=== PATIENT | female | born 1975 | race Two or more races ===

== ENCOUNTER → 2020-02-20 08:04 | Outpatient (BNV) | payer MEDICARE, MEDICAID, SELFPAY | PROVIDERS: PCP Internal Medicine; Visit Provider Internal Medicine | DX: Z85.3 Personal history of malignant neoplasm of breast (principal); Z90.13 Acquired absence of bilateral breasts and nipples; Z85.09 Personal history of malignant neoplasm of other digestive organs; Z15.01 Genetic susceptibility to malignant neoplasm of breast | CPT/HCPCS: 99213; 99214 ==

== ENCOUNTER 2020-02-28 06:56 | Outpatient (REF) | payer MEDICARE, MEDICAID, SELFPAY ==
--- NOTE | 2020-02-28 07:00 | CT_ITS ---
EXAMINATION: CT CHEST, ABDOMEN AND PELVIS WITH CONTRAST CLINICAL INFORMATION: Cough, chest and abdominal pain. COMPARISON: None TECHNIQUE: A 5 mm thin axial and reformatted 3 mm thin sagittal and coronal images of chest, abdomen and pelvis were obtained following IV 85 mL Omnipaque 350. DLP: 400 mGy-cm FINDINGS: CHEST: The lungs are well expanded and clear of acute process. There is a 2 mm focal nodular thickening, right major fissure. Heart size and the great vessels are normal caliber. There is no pericardial effusion. The central trachea and bronchi are widely patent. The thyroid lobes are symmetrical and normal. No abnormal size mediastinal or hilar lymph nodes seen. There is no pleural effusion, thickening, or calcification. The axilla and chest wall appear unremarkable. ABDOMEN AND PELVIS: The liver is normal size, shape and diffusely attenuated. No focal lesions seen. There is no intrahepatic ductal dilatation. There is no focal lesion or intrahepatic ductal dilatation. There are no radiopaque gallstones seen. There is, however, mild focal wall thickening, medial wall, measuring 7 mm, suspicious for a lesion. Visualized spleen, pancreas and bilateral adrenal glands are unremarkable. A small accessory splenule is seen. Both kidneys are normal size, shape and position. No radiopaque renal calculi or hydronephrosis. Abdominal aorta is normal caliber. No retroperitoneal lymph nodes nodes or mass seen. There is scattered stool and contrast seen throughout the colon without any significant distention. The small bowel loops are normal caliber. The stomach is nondistended and appears unremarkable. The appendix is normal caliber. There is no free air or free fluid. There is mild nonspecific thickening involving the lower anterior abdominal wall likely granulation tissue. Imaging through the pelvis reveals the urinary bladder to be nondistended with nonspecific mild wall thickening. The bladder wall measures 4 mm thick. Incidental finding of ureteral and gissel-ureteral gas collection, ? iatrogenic or inflammatory. Correlate with clinical exam. There is no free fluid seen. There is mild ventral spondylosis L3-L4 disc level. No lytic or sclerotic process seen. IMPRESSION: 1. Punctate nodule, right major fissure, likely a lymph node. Otherwise CT chest exam is unremarkable. 2. Mild gallbladder wall thickening. Focal wall thickening is seen measuring 7 mm along the medial wall, suspicious. Recommend ultrasound gallbladder for further evaluation. 3. No acute process seen in the abdomen or pelvis. 4. Mild constipation without obstruction.
[2020-02-28] MEDS: Barium Sulfate Oral (Vanilla) 450 ML ORAL.SUSP 900 ML PO (09:39)
== END 2020-02-28 06:57 | disposition home or self-care (01) ==
LOC: HO.CT 06:56
PROVIDERS: PCP Internal Medicine; Visit Provider Internal Medicine
DX: R05 Cough (principal); R07.9 Chest pain, unspecified; R10.9 Unspecified abdominal pain; C50.919 Malignant neoplasm of unspecified site of unspecified female breast; Z15.01 Genetic susceptibility to malignant neoplasm of breast
CPT/HCPCS: 71260; 74177

== ENCOUNTER 2020-03-08 08:26 | Outpatient (REF) | payer MEDICARE, MEDICAID, SELFPAY ==
--- NOTE | 2020-03-08 08:31 | US_ITS ---
EXAMINATION: US ABDOMEN LIMITED CLINICAL INFORMATION: Abnormal CT findings. COMPARISON: CT chest, abdomen and pelvis 02/28/2020 TECHNIQUE: Real-time imaging of the right upper quadrant abdominal viscera. FINDINGS: PANCREAS: Normal. LIVER: The liver is normal in size. The liver contour is normal. There is slight increased liver echogenicity. No focal hepatic lesion. There is no intrahepatic biliary duct dilatation seen. GALLBLADDER: There is a hypoechoic lesion along the inner gallbladder wall measuring 1.8 x 1.6 x 1.9 cm suspicious for a large polyp or a mass with increased vascularity. The gallbladder wall thickness is 0.22 cm. The gallbladder is physiologically distended. Multiple mobile gallstones are present. No tenderness in the gallbladder region by ultrasound probe. No evidence of pericholecystic fluid. COMMON BILE DUCT: Normal in caliber measuring 0.5 cm in diameter. RIGHT KIDNEY: Normal. No hydronephrosis. No renal calculi or focal parenchymal lesions. The kidney measures 9.2 cm in maximum dimension. FREE FLUID: None. US/US abdomen limited IMPRESSION: Hypervascular large polyp or a mass along the inner gallbladder wall suspected. The findings are concordant with CT report, and the measurement was 1.47 cm and not [address] abdomen from 02/28/2020. Multiple echogenic gallstones without wall thickening.
== END 2020-03-08 08:27 | disposition home or self-care (01) ==
LOC: HO.HMGCX 08:26
PROVIDERS: PCP Internal Medicine; Visit Provider Internal Medicine
DX: R93.2 Abnormal findings on diagnostic imaging of liver and biliary tract (principal)
CPT/HCPCS: 76705

== ENCOUNTER 2020-04-18 08:24 | Outpatient (REF) | payer MEDICARE, MEDICAID, SELFPAY ==
[2020-04-26 15:23] LABS: HPV 16 RNA NOT DETECTED (NOT DETECTED); HPV mRNA E6/E7 rflx Detected (Not Detected)
== END 2020-04-18 08:25 | disposition home or self-care (01) ==
LOC: HO.LAB 08:24
PROVIDERS: PCP Internal Medicine; Visit Provider Advanced Practice Midwife
DX: Z01.419 Encounter for gynecological examination (general) (routine) without abnormal findings (principal); Z15.01 Genetic susceptibility to malignant neoplasm of breast; Z15.09 Genetic susceptibility to other malignant neoplasm
CPT/HCPCS: 87624; 87625; 88141; 88142

== ENCOUNTER 2020-11-05 05:56 | Outpatient (REF) | payer MEDICARE, MEDICAID, SELFPAY ==
--- NOTE | ~2020-11-05 | CT_ITS ---
EXAMINATION: CT ABDOMEN AND PELVIS WITH CONTRAST CLINICAL INFORMATION: Gallbladder cancer COMPARISON: Previous CT of the abdomen and pelvis and ultrasound of the abdomen over 2019 TECHNIQUE: Multidetector volumetric images were obtained from the superior aspect of the liver through the pubic symphysis following administration 85 mL of Omnipaque 350 intravenous contrast. Sagittal and coronal reformatted images were obtained on the technologist's workstation. Oral contrast: Yes This CT examination was performed using dose optimization techniques as appropriate, variously including the following: *Automated exposure control *Adjustment of mA and/or kV according to patient size (this includes techniques or standardized protocols for targeted exams where dose is matched to indication/reason for exam; i.e. extremities or head) *Use of iterative reconstruction technique DLP: 379 mGy-cm FINDINGS: LUNG BASES: The visualized lung bases are unremarkable. LIVER, GALLBLADDER, AND BILIARY TREE: The liver is low in attenuation suggestive of fatty infiltration. No focal liver lesion or biliary duct dilatation. The gallbladder has been removed. No abnormal soft tissue in the gallbladder fossa is seen. PANCREAS: There is amorphous appearing heterogeneous soft tissue inferior to the uncinate process of the head of the pancreas. Measured as 2.1 x 4.5 cm in AP and transverse dimension axial image 31 series 3. High attenuation component is similar to the attenuation of the pancreas and measures approximately 15. The more peripheral low-attenuation component measuring has Hounsfield units measure 20. This is similar to preoperative exam February 2020. Pancreas is otherwise unremarkable. SPLEEN: Unremarkable. ADRENAL GLANDS: Unremarkable. KIDNEYS AND URETERS: The kidneys are normal in size, shape, and attenuation. No hydronephrosis, hydroureter, or calculi seen. No perinephric stranding. BLADDER: There may be mild diffuse bladder wall thickening. GASTROINTESTINAL TRACT: The small and large bowel are unremarkable. The appendix is unremarkable. ABDOMINAL WALL: No significant hernia is appreciated. There are postsurgical changes to the anterior abdominal wall. LYMPH NODES: There are small, small bowel mesentery lymph nodes that are unchanged. No enlarged lymph nodes are seen. There is no ascites. VASCULAR: Unremarkable. PELVIC VISCERA: Unremarkable. OSSEOUS STRUCTURES: There are mild degenerative changes of the spine. CT/CT abdomen pelvis w con IMPRESSION: Heterogeneous soft tissue inferior to the uncinate process of the head of the pancreas. This is similar to preoperative exam February 2020. This may represent the sequela of previous pancreatitis. Question mild diffuse bladder wall thickening. Fatty liver.
[2020-11-05] MEDS: iohexoL 350 MG/ML 100 ML INFUS..BTL IV (08:58)
[2020-11-05] MEDS: Barium Sulfate Oral (Vanilla) 450 ML ORAL.SUSP 900 ML PO (08:59)
== END 2020-11-05 05:57 | disposition home or self-care (01) ==
LOC: HO.CT 05:56
PROVIDERS: PCP Internal Medicine; Visit Provider Internal Medicine
DX: C22.1 Intrahepatic bile duct carcinoma (principal)
CPT/HCPCS: 74177; Q9967

== ENCOUNTER 2020-12-02 08:01 | Outpatient (REF) | payer MEDICARE, MEDICAID, SELFPAY ==
--- NOTE | ~2020-12-02 | MR_ITS ---
MRI OF THE BRAIN WITH AND WITHOUT IV CONTRAST INDICATION: Dizziness. COMPARISON: None available. TECHNIQUE: Multiplanar multisequence MR imaging of the brain was obtained without and following the administration of 8.5 mL of Gadavist without complication. FINDINGS: There is no pathologic intracranial enhancement. Developmental venous anomalies within the frontal lobes bilaterally. Cavum septum pellucidum at vergae No parenchymal signal abnormality. There is no hydrocephalus, extra-axial surface collection, or herniation. The major flow voids at the skull base are preserved. There is no acute infarct on diffusion-weighted imaging. There is no intracranial hemorrhage on the gradient recalled echo acquisition. The midline structures are normal. The cerebellar tonsils are normally positioned. The cerebellum and brainstem are normal. The craniocervical junction is normal. Osseous marrow signal intensity is homogenous. The visualized soft tissues are unremarkable. MR/MR head/brain wo/w con IMPRESSION: Unremarkable MRI of the brain.
== END 2020-12-02 08:02 | disposition home or self-care (01) ==
LOC: HO.MRI 08:01
PROVIDERS: Visit Provider Internal Medicine
DX: R42 Dizziness and giddiness (principal); C50.911 Malignant neoplasm of unspecified site of right female breast
CPT/HCPCS: 70553; A9585

== ENCOUNTER 2021-01-06 14:00 | Outpatient (RCR) | payer MEDICARE, MEDICAID, SELFPAY ==
--- NOTE | 2020-12-12 09:57 | MHC.PT.EP ---
[facility] Media Office [place] Office [place] Office [address] [phone] F: [phone] F: [phone] F: [phone] F: [phone] Physical Therapy Plan of Care Date of Evaluation: Date of Surgery: none Diagnosis: R frozen shoulder. Assessment: Patient is a 45 year old R handed female who presents with s/s consistent with R frozen shoudler. She is not currently working and not exercising regularly. Past medical history included breast cancer with mastectomy. Current impairments include pain, posture, ROM, strength, activity tolerance and functional mobility. Functional limitations include decreased ability to sleep, reach, lift, carry, push, pull, and perform weight bearing activities.. Patient is motivated with good rehab potential. Skilled PT will address impairments and functional limitations in order to achieve goals. Frequency and Duration: The patient will be seen 2x/week for 5 weeks Short Term Goals: I with HEP - 2 week ROM flexion and abduction 120 - 3 weeks strength 4/5 grossly - 3 weeks Director Risk Goals: ROM flexion and abd 140 - 5 weeks ER/Ir arc 120 - 5 weeks pain free sleep - 5 weeks Treatment Plan: Modalities to reduce pain, spasms and effusion. Manual therapy to restore motion and function. Therapeutic exercise to improve strength and flexibility. Neuromuscular re-education for posture and balance. Therapeutic activities to return to functional activities of daily living. Electronically signed by: Nikolas Mahoney PT Please sign and return to therapist. Thank you for your referral.
--- NOTE | 2021-04-15 14:27 | MHC.PT.DC ---
[facility] [place] Office [place] Office [place] Office [address] Orlin Huerta [address] [phone] F: [phone] F: [phone] F: [phone] F: [phone] Physical Therapy Discharge Report Diagnosis: R frozen shoulder. Date of Surgery: none Date of Evaluation: 12/12/20 Date of Discharge: 02/14/21 Treatments to Date: 7 Cancellations to Date: 0 No Shows to Date: 0 Discharge Status: Independent with HEP Discharge Summary: Progressing well with skilled PT. ROM improving. strength improving. At this time, we will d/c to HEP. Electronically signed by: Nikolas Mahoney PT Please sign and return to therapist. Thank you for your referral.
== END 2021-04-15 14:27 | disposition home or self-care (01) ==
LOC: HO.PTCHIC 14:00
PROVIDERS: PCP Internal Medicine; Visit Provider Internal Medicine
DX: M75.01 Adhesive capsulitis of right shoulder (principal)
CPT/HCPCS: 97110; 97140; 97162

== ENCOUNTER 2021-04-07 07:46 | Outpatient (REF) | payer MEDICARE, MEDICAID, SELFPAY ==
--- NOTE | ~2021-04-07 | CT_ITS ---
EXAMINATION: CT ABDOMEN AND PELVIS WITHOUT AND WITH CONTRAST CLINICAL INFORMATION: Follow-up pancreatic mass COMPARISON: Previous CT scans of the abdomen and pelvis most recent October 2020 Back to oldest available exam April 2017 TECHNIQUE: Multidetector volumetric imaging was performed of the abdomen and pelvis before and after the IV administration of 85 mL of Omnipaque 350 intravenous contrast. Sagittal and coronal reformatted images were obtained on the technologist's workstation. This CT examination was performed using dose optimization techniques as appropriate, variously including the following: *Automated exposure control *Adjustment of mA and/or kV according to patient size (this includes techniques or standardized protocols for targeted exams where dose is matched to indication/reason for exam; i.e. extremities or head) *Use of iterative reconstruction technique DLP: 596 mGy-cm FINDINGS: LUNG BASES: The visualized lung bases are unremarkable. LIVER, GALLBLADDER, AND BILIARY TREE: The liver is normal in size, shape, and attenuation. No focal hepatic lesion or biliary ductal dilatation is present. The gallbladder has been removed. PANCREAS: There is a stable low-attenuation soft tissue inferior to the uncinate process of the head of the pancreas. This can be seen going back to oldest available exam April 2017. This measures 1 x 4 cm in AP and transverse dimension for example axial image 96 series 7 Hounsfield units postcontrast are low and measure 15-20 suggestive of complex fluid or cyst. The pancreas is otherwise unremarkable. A discrete mass in the pancreas is not seen. The main pancreatic duct does not appear dilated. SPLEEN: Unremarkable ADRENAL GLANDS: Unremarkable KIDNEYS AND URETERS: The kidneys are normal in size, shape, and attenuation. No hydronephrosis, hydroureter, or calculi seen. No perinephric stranding. BLADDER: Not optimally distended. There may be mild diffuse bladder wall thickening. GASTROINTESTINAL TRACT: The small and large bowel are unremarkable. The appendix is unremarkable. ABDOMINAL WALL: There are postsurgical changes to the anterior abdominal wall. No hernia or fluid collection is seen. LYMPH NODES: There is shotty small bowel mesentery lymphadenopathy that is stable. No enlarged lymph nodes are seen. VASCULAR: Unremarkable PELVIC VISCERA: Unremarkable OSSEOUS STRUCTURES: There are degenerative changes of the spine. CT/CT abdomen pelvis wo/w con IMPRESSION: Stable low-attenuation amorphous appearing soft tissue inferior to the uncinate process of the pancreas going back to oldest available exam April 2017. Stable shotty small bowel mesentery lymphadenopathy. Question mild diffuse bladder wall thickening. Fleischner guidelines were followed.
[2021-04-07] MEDS: iohexoL 350 MG/ML 100 ML INFUS..BTL IV (09:38)
== END 2021-04-07 07:47 | disposition home or self-care (01) ==
LOC: HO.CT 07:46
PROVIDERS: Visit Provider Internal Medicine
DX: K86.9 Disease of pancreas, unspecified (principal)
CPT/HCPCS: 74178; Q9967

== ENCOUNTER 2021-06-05 08:59 | Outpatient (REF) | payer MEDICARE, MEDICAID, SELFPAY ==
[2021-06-06 13:08] LABS: CT PCR NOT DETECTED (Not Detect.); NG PCR NOT DETECTED (Not Detect.)
[2021-06-07 10:58] LABS: BV Int Neg Control Negative (Negative); BV Int Pos Control Positive (Positive)
[2021-06-14 02:26] LABS: HPV 16 RNA NOT DETECTED (NOT DETECTED); HPV mRNA E6/E7 rflx Detected (Not Detected)
== END 2021-06-05 09:00 | disposition home or self-care (01) ==
LOC: HO.LAB 08:59
PROVIDERS: PCP Internal Medicine; Visit Provider Advanced Practice Midwife
DX: Z01.419 Encounter for gynecological examination (general) (routine) without abnormal findings (principal); Z11.51 Encounter for screening for human papillomavirus (HPV); Z20.2 Contact with and (suspected) exposure to infections with a predominantly sexual mode of transmission; Z90.710 Acquired absence of both cervix and uterus; Z87.42 Personal history of other diseases of the female genital tract
CPT/HCPCS: 87480; 87491; 87510; 87591; 87624; 87625; 87660; 88142

== ENCOUNTER → 2021-06-19 08:47 | Outpatient (BNVA) | payer MEDICARE, MEDICAID, SELFPAY | PROVIDERS: PCP Internal Medicine; Referring Provider Internal Medicine; Visit Provider Nurse Practitioner | DX: Z12.11 Encounter for screening for malignant neoplasm of colon (principal); K59.04 Chronic idiopathic constipation; R14.0 Abdominal distension (gaseous); R17 Unspecified jaundice | CPT/HCPCS: 99202 ==

== ENCOUNTER 2021-07-02 07:49 | Outpatient (REF) | payer MEDICARE, MEDICAID, SELFPAY ==
[2021-07-02 09:08] LABS: Bilirubin Direct 0.7 mg/dL (0.0-0.5)
== END 2021-07-02 07:50 | disposition home or self-care (01) ==
LOC: HO.LAB 07:49
PROVIDERS: PCP Internal Medicine; Visit Provider Nurse Practitioner
DX: K59.04 Chronic idiopathic constipation (principal); R14.0 Abdominal distension (gaseous); R17 Unspecified jaundice
CPT/HCPCS: 36415; 82248; 84443

== ENCOUNTER 2021-07-08 20:30 | Outpatient (REF) | payer MEDICARE, MEDICAID, SELFPAY ==
[2021-07-14 22:21] LABS: Pancreatic Elastase-1 >500 mcg/g
== END 2021-07-08 20:31 | disposition home or self-care (01) ==
LOC: HO.LNP 20:30
PROVIDERS: Visit Provider Nurse Practitioner
DX: K59.04 Chronic idiopathic constipation (principal); R14.0 Abdominal distension (gaseous)
CPT/HCPCS: 82656

== ENCOUNTER 2021-07-10 07:07 | Outpatient (REF) | payer MEDICARE, MEDICAID, SELFPAY ==
[2021-07-10 09:37] LABS: Gamma Glutamyl Transpeptidase 35 U/L (7-33)
[2021-07-10 09:57] LABS: HBsAGNum1 0.26 S/CO (0.00-0.99); Hepatitis B Surface Antigen Negative (Negative)
[2021-07-10 10:03] LABS: Ferritin 57 ng/mL (10-250)
[2021-07-10 10:08] LABS: HBc Num1 0.12 S/CO (0.00-0.79); Hepatitis B Core Antibody Nonreactive (Nonreactive); ~HepC Num1 0.09 S/CO (0.00-0.79); ~Hepatitis B Surface Antibody NONREACTIVE (Nonreactive); ~Hepatitis C Antibody Nonreactive (Nonreactive)
[2021-07-11 07:45] LABS: ~Hepatitis A Antibody IgM Nonreactive (Nonreactive)
[2021-07-11 15:07] LABS: Anti Nuclear Antibody Screen NEGATIVE (NEGATIVE)
[2021-07-12 14:56] LABS: Mitochondrial Antibodies NEGATIVE (NEGATIVE)
[2021-07-15 14:05] LABS: Smooth Muscle Antibody <20 U (<20)
== END 2021-07-10 07:08 | disposition home or self-care (01) ==
LOC: HO.LAB 07:07
PROVIDERS: PCP Internal Medicine; Referring Provider Internal Medicine; Visit Provider Nurse Practitioner
DX: K59.04 Chronic idiopathic constipation (principal); R17 Unspecified jaundice; R14.0 Abdominal distension (gaseous); R79.89 Other specified abnormal findings of blood chemistry
CPT/HCPCS: 36415; 82728; 82977; 86015; 86038; 86039; 86255; 86256; 86704; 86706; 86709; 86803; 87340; 99212

== ENCOUNTER → 2021-07-31 07:10 | Outpatient (BNVA) | payer MEDICARE, MEDICAID, SELFPAY | PROVIDERS: PCP Internal Medicine; Referring Provider Internal Medicine; Visit Provider Nurse Practitioner | DX: Z12.11 Encounter for screening for malignant neoplasm of colon (principal); K59.04 Chronic idiopathic constipation; R14.0 Abdominal distension (gaseous); R17 Unspecified jaundice; R79.89 Other specified abnormal findings of blood chemistry | CPT/HCPCS: 99212 ==

== ENCOUNTER 2021-09-17 07:25 | Day surgery (SDC) | payer MEDICARE, MEDICAID, SELFPAY ==
[2021-09-10 20:18] VITALS: BMI 28.5
--- NOTE | 2021-09-16 12:56 | P.CONAN_ITS ---
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 (Acute) Hx of hysterectomy (Acute) Hx of abnormal cervical Pap smear (Acute) BRCA1 positive (Acute) Well woman exam with routine gynecological exam (Acute) Gallbladder cancer, carcinoma (Acute) Breast cancer, right breast (Chronic) Past Medical History Medical History Adhesive capsulitis of left shoulder Adhesive capsulitis of right shoulder Anxiety disorder Breast cancer, BRCA1 positive Gallbladder cancer, carcinoma [place] disease Vitamin D deficiency Family History Family History Father Prostate cancer Paternal Aunt Breast cancer Maternal Grandmother Alzheimer's dementia Mother Endometrial cancer Surgical History Surgical History H/O bilateral mastectomy History of cholecystectomy History of colonoscopy History of hysterectomy with bilateral oophorectomy Social History Social History Household Members: None Housing: Apartment Are you a primary managed care director to a significant other at home: No Do you presently have visiting nurse or other home services: No Alcohol intake: never Patient Tobacco Use Status: Never used Tobacco service: No Current occupational status: unemployed Gender identity: Female Meds Allergies Allergy/AdvReac Type Severity Reaction Status Date / Time diphenhydramine Allergy Intermediate RASH Verified 09/10/21 08:45 [From BENADRYL] Penicillins [PENICILLINS] Allergy Intermediate RASH Verified 09/10/21 08:45 LAUGHING GAS Allergy Intermediate RASH/HIVES/ Uncoded 09/10/21 08:45 SWELLING Exam Exam Date and Time: September 16, 2021 1256 Height,Weight and Vital Signs: Height 5 ft 7 in Weight 82.554 kg Pertinent Lab Results Pertinent Lab Results: Laboratory Tests 09/10/21 09/10/21 08:12 08:12 WBC 4.9 Hgb 12.6 Hct 41.6 Plt Count 366 Sodium 139 Potassium 4.5 Chloride 101 Carbon Dioxide 29 BUN 10 Creatinine 0.93 Assessment and Plan Assessment Anesthesia Assessment: Chart Reviewed
--- NOTE | 2021-09-17 07:15 | P.CONAN_ITS ---
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) Hx of hysterectomy (Acute) Hx of abnormal cervical Pap smear (Acute) BRCA1 positive (Acute) Well woman exam with routine gynecological exam (Acute) Gallbladder cancer, carcinoma (Acute) Breast cancer, right breast (Chronic) Past Medical History Medical History Adhesive capsulitis of left shoulder Adhesive capsulitis of right shoulder Anxiety disorder Breast cancer, BRCA1 positive Gallbladder cancer, carcinoma [place] disease Vitamin D deficiency Functional capacity: independent ambulation Patient : No Family History Family History Father Prostate cancer Paternal Aunt Breast cancer Maternal Grandmother Alzheimer's dementia Mother Endometrial cancer Family history of problems with anesthesia: No Surgical History Surgical History H/O bilateral mastectomy History of cholecystectomy History of colonoscopy History of hysterectomy with bilateral oophorectomy History of Problems with Anesthesia: No Social History Social History Household Members: None Housing: Apartment Are you a primary early breastfeeding care specialist to a significant other at home: No Do you presently have visiting nurse or other home services: No Alcohol intake: never Patient Tobacco Use Status: Never used Tobacco Use of substances other than those prescribed or required for medical reasons: No Are you DNR?: No Advance Directives: No Advance Directives Information Provided: Yes Recently lost weight without trying: No Nutrition Risks: No Nutritional Risk Patient : No service: No Current occupational status: unemployed Gender identity: Female Meds Allergies Allergy/AdvReac Type Severity Reaction Status Date / Time diphenhydramine Allergy Intermediate RASH Verified 09/10/21 08:45 [From BENADRYL] Penicillins [PENICILLINS] Allergy Intermediate RASH Verified 09/10/21 08:45 LAUGHING GAS Allergy Intermediate RASH/HIVES/ Uncoded 09/10/21 08:45 SWELLING Exam Exam Date and Time: September 17, 2021 0715 Height,Weight and Vital Signs: Height 5 ft 7 in Weight 82.554 kg Airway Mallampati Class: III TM Dist: >3cm Neck ROM: Full Heart: RRr Lungs: CTA Assessment and Plan Final Anesthetic Review Family History of Problems with Anesthesia: No History of Problems with Anesthesia: No ASA Class: III Final Preanesthetic Review: No Changes in Pt Med Stat, Meds/Allgs Chart Reviewed, Consent Obtained/Reviewed and Anes Risks/Benef Reviewed Patient Risk: Low Procedure Risk: Low Anesthetic Plan Anesthetic Plan: MAC: Disposition: Standard PACU
[2021-09-17 07:38] VITALS: BMI 28.1
[2021-09-17 07:53] VITALS: BP 118/76; PULSE 63; RESP 17; TEMP 36.7; O2SAT 98
[2021-09-17] MEDS: Lactated Ringers 1,000 ML 100 ML IVCONT (08:05)
--- NOTE | 2021-09-17 08:33 | MHC.SHP ---
Pre-Procedural Eval Section A Date of Service: 09/17/21 Section B Chief Complaint: colon screening Details of Present Illness: BRCA gene pos Relevant Family History (Specify if Yes): Yes Relevant Social History: None Present Medications: see Short Stay Collaborative assessment Medical History: Significant History (Adhesive capsulitis of left shoulder Adhesive capsulitis of right shoulder Anxiety disorder Breast cancer, BRCA1 positive Gallbladder cancer, carcinoma [place] disease Vitamin D deficiency) History of Previous Operations: Relevant previous surgery/procedure and date(s) (H/O bilateral mastectomy History of cholecystectomy History of colonoscopy History of hysterectomy with bilateral oophorectomy) Allergies: Allergies Allergy/AdvReac Type Severity Reaction Status Date / Time diphenhydramine Allergy Intermediate RASH Verified 09/10/21 08:45 [From BENADRYL] Penicillins [PENICILLINS] Allergy Intermediate RASH Verified 09/10/21 08:45 LAUGHING GAS Allergy Intermediate RASH/HIVES/ Uncoded 09/10/21 08:45 SWELLING Review of Systems Sugical H&P ROS: Negative: Constitution, Cardiovascular, Respiratory, Neurological, Psychiatric, Hem-Onc, Allergic/Immunologic, Gastrointestinal, Genitourinary, Musculoskeletal, Integumentary, Endocrine and Eyes/Ears/Nose/Throat Exam Surgical H&P Exam: Normal: HEENT, Normal: Heart, Normal: Lungs, Normal: Extremities, Normal: Abdomen, Normal: Skin and Normal: Neurological Plan Diagnosis/Plan: Unchanged I have reviewed the history and physical and performed a pertinent physical examination on my patient. No changes have occurred unless specified.
--- NOTE | 2021-09-17 08:35 | PM.OP ---
Brief Operative Note Date of Service: 09/17/21 Pre-op diagnosis: colon screening Post-op diagnosis: same Procedure: see op note Surgeon: Cari Hoyt MD Anesthesia: MAC Was an Refractory Tile Helper used for this Procedure?: No Estimated blood loss (mL): 0 Condition: stable Disposition: PACU
--- NOTE | 2021-09-17 08:35 | W.PM.OPN ---
Operative Note Operative Note Date of Service: 09/17/21 Narrative: Operative Information Procedure Description: Colonoscopy Indication: colon cancer screening Anesthesia: MAC COLONOSCOPY Instrument: Olympus variable stiffness pediatric scope 190L Colonoscopy Monitoring: Vital signs and clinical assessment, continuous EKG monitoring, Pulse oximetry, Carbon Dioxide monitoring and blood pressure monitoring were done throughout the procedure. Colon withdrawal time was 9 minutes. Procedure: The patient was placed in the left lateral decubitis position and pre-procedure medications were administered. After a digital rectal examination of the ano-rectum, the video colonoscope was inserted into the rectum and advanced through the colon to the cecum/TI. The colonoscope was slowly withdrawn in a retrograde panoramic fashion and the colon mucosa was carefully examined including a retroflexed view of the rectum. Findings and interventions are described below. Procedure Difficulty: easy Findings: Terminal Ileum-normal Cecum: few small erosions noted Ascending Colon: one small diverticulum noted in distal area otherwise normal Transverse Colon -normal Descending Colon:normal Sigmoid Colon: 10-12 mm sessile polyp removed with cold snare Rectum: Retroflexion with small internal hemorrhoids, grade I Anorectum - normal Colon preparation: [facility] Bowel Preparation Scale Right colon; 2 Transverse colon: 3 Left colon; 3 (0 = Unprepared colon segment with mucosa not seen due to solid stool that cannot be cleared. 1 = Portion of mucosa of the colon segment seen, but other areas of the colon segment not well seen due to staining, residual stool and/or opaque liquid. 2 = Minor amount of residual staining, small fragments of stool and/or opaque liquid, but mucosa of colon segment seen well. 3 = Entire mucosa of colon segment seen well with no residual staining, small fragments of stool or opaque liquid) Impression and Post Procedure Diagnosis: polyp internal hemorrhoids diverticular disease Plan: High fiber diet leaflet Avoid straining at stool, epsom salts and sitz bath, anusol supps or cream Repeat Colonoscopy in 5 years or earlier if clinically indicated, patient also has BRCA gene pos, which does have a moderately higher risk for CRC so 5 yrs is reasonable Above findings were reviewed with the patient and relevant handouts were provided if indicated.
[2021-09-17 09:03] VITALS: BP 93/47; PULSE 66; RESP 16; TEMP 36.6; O2SAT 98
[2021-09-17 09:18] VITALS: BP 115/77; PULSE 60; RESP 16; TEMP 36.6; O2SAT 98
--- NOTE | 2021-09-17 12:05 | HO.POSTANES ---
Post Anesthesia Evaluation Post Anesthesia Evaluation Vital Signs: Vital Signs Temp Pulse Resp BP Pulse Ox 09/17/21 09:18 97.8 F 60 16 115/77 98 09/17/21 09:03 97.8 F 66 16 93/47 L 98 09/17/21 07:53 98.0 F 63 17 118/76 98 Anesthesia: Monitored Mental Status: Awake Pain Control: Satisfactory Nausea/Vomiting: None Hydration: Adequate Anesthesia-Related Issues: No Anes. Related Issues
== END 2021-09-17 09:48 | disposition home or self-care (01) ==
PROVIDERS: PCP Internal Medicine; Visit Provider Internal Medicine Gastroenterology
PROC: 0DJD8ZZ Inspection of Lower Intestinal Tract, Via Natural or Artificial Opening Endoscopic (ICD-10-PCS; CPT 45378; principal; 2021-09-17 08:30)
DX: Z12.11 Encounter for screening for malignant neoplasm of colon (principal); K59.04 Chronic idiopathic constipation; K63.5 Polyp of colon; K57.30 Diverticulosis of large intestine without perforation or abscess without bleeding; K64.0 First degree hemorrhoids; E80.4 Gilbert syndrome; E55.9 Vitamin D deficiency, unspecified; Z85.3 Personal history of malignant neoplasm of breast; Z85.09 Personal history of malignant neoplasm of other digestive organs; Z88.0 Allergy status to penicillin; Z88.8 Allergy status to other drugs, medicaments and biological substances
CPT/HCPCS: 45385; 88305

== ENCOUNTER 2021-09-22 05:36 | Outpatient (REF) | payer MEDICARE, MEDICAID, SELFPAY ==
--- NOTE | ~2021-09-22 | CT_ITS ---
EXAMINATION: CT ABDOMEN AND PELVIS WITHOUT CONTRAST CLINICAL INFORMATION: Recurrent pancreatic cancer. For screening. COMPARISON: None TECHNIQUE: Multidetector volumetric imaging was performed from the superior aspect of the liver through the pubic symphysis. Sagittal and coronal reformatted images were obtained on the technologist's workstation. This CT examination was performed using dose optimization techniques as appropriate, variously including the following: *Automated exposure control *Adjustment of mA and/or kV according to patient size (this includes techniques or standardized protocols for targeted exams where dose is matched to indication/reason for exam; i.e. extremities or head) *Use of iterative reconstruction technique DLP: 539 mGy-cm FINDINGS: LUNG BASES: The visualized lung bases are unremarkable. LIVER, GALLBLADDER, AND BILIARY TREE: The liver is normal in size, shape, and attenuation. No focal hepatic lesion or biliary ductal dilatation is present. The gallbladder has been surgical removed. PANCREAS: The pancreas is homogeneous in density. The peripancreatic fat borders are maintained. No heterogeneity seen. SPLEEN: Unremarkable. ADRENAL GLANDS: Unremarkable. KIDNEYS AND URETERS: The kidneys are normal in size, shape, and attenuation. No hydronephrosis, hydroureter, or calculi seen. No perinephric stranding. BLADDER: The bladder is nondistended. GASTROINTESTINAL TRACT: There is moderate scattered stool seen throughout the colon without distention. Oral contrast opacified small bowel loops are normal caliber. Appendix is normal caliber. ABDOMINAL WALL: There is mild anterior abdominal wall haziness likely cellulitis. Mild skin wall thickening is also visualized. LYMPH NODES: Small shotty mesenteric lymph nodes seen. No abnormal lymph node seen around the pancreas or the awa hepatis. VASCULAR: Unremarkable. PELVIC VISCERA: The uterus is anteverted and appears unremarkable. There is moderate impacted stool in the rectum and the sigmoid colon. OSSEOUS STRUCTURES: No aggressive lytic or sclerotic process seen. There is mild ventral spondylosis L3-L4 disc levels. CT/CT abdomen pelvis wo con IMPRESSION: On noncontrast exam the pancreas appears unremarkable. The peripancreatic fat borders are preserved. No abnormal lymph node seen in the upper abdomen. Gallbladder has been surgically removed. Moderate constipation. Haziness throughout the anterior abdominal wall with mild skin thickening question cellulitis or postsurgical changes. Fleischner guidelines were followed.
[2021-09-22] MEDS: Barium Sulfate Oral (Mocha) 450 ML ORAL.SUSP 900 ML PO (08:58)
== END 2021-09-22 05:37 | disposition home or self-care (01) ==
LOC: HO.CT 05:36
PROVIDERS: Visit Provider Internal Medicine
DX: C23 Malignant neoplasm of gallbladder (principal); C50.919 Malignant neoplasm of unspecified site of unspecified female breast; Z15.01 Genetic susceptibility to malignant neoplasm of breast
CPT/HCPCS: 74176

== ENCOUNTER 2021-12-18 09:54 | Outpatient (REF) | payer MEDICARE, MEDICAID, SELFPAY | END 2021-12-18 09:55 | disposition home or self-care (01) | LOC: HO.LAB 09:54 | PROVIDERS: PCP Internal Medicine; Visit Provider Obstetrics & Gynecology | DX: R87.610 Atypical squamous cells of undetermined significance on cytologic smear of cervix (ASC-US) (principal); R87.810 Cervical high risk human papillomavirus (HPV) DNA test positive | CPT/HCPCS: 57454; 88305; 88342; 88360 ==

== ENCOUNTER → 2022-01-15 10:57 | Outpatient (BNVA) | payer MEDICARE, MEDICAID, SELFPAY | PROVIDERS: PCP Internal Medicine; Visit Provider Obstetrics & Gynecology | DX: R87.610 Atypical squamous cells of undetermined significance on cytologic smear of cervix (ASC-US) (principal); R87.810 Cervical high risk human papillomavirus (HPV) DNA test positive; Z98.890 Other specified postprocedural states | CPT/HCPCS: 99212 ==

== ENCOUNTER 2022-03-26 08:17 | Outpatient (REF) | payer MEDICARE, MEDICAID, SELFPAY ==
--- NOTE | ~2022-03-26 | CT_ITS ---
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 COMPARISON: Previous CT scans most recent September 2021 TECHNIQUE: Multidetector volumetric images were obtained from the superior aspect of the liver through the pubic symphysis following administration 85 mL of Omnipaque 350 intravenous contrast. Sagittal and coronal reformatted images were obtained on the technologist's workstation. Oral contrast: Yes This CT examination was performed using dose optimization techniques as appropriate, variously including the following: *Automated exposure control *Adjustment of mA and/or kV according to patient size (this includes techniques or standardized protocols for targeted exams where dose is matched to indication/reason for exam; i.e. extremities or head) *Use of iterative reconstruction technique DLP: 363 mGy-cm FINDINGS: LUNG BASES: The visualized lung bases are clear. Stable postsurgical changes to the right chest wall. LIVER, GALLBLADDER, AND BILIARY TREE: The liver is low in attenuation suggestive of fatty infiltration. No focal liver lesion. The gallbladder has been removed. There is no biliary duct dilatation. PANCREAS: There is low-attenuation seen surrounding the uncinate process of the head of the pancreas. Similar to previous exam. Pancreas is otherwise normal. The main pancreatic duct does not appear dilated. SPLEEN: Unremarkable. ADRENAL GLANDS: Unremarkable. KIDNEYS AND URETERS: The kidneys are normal in size, shape, and attenuation. No hydronephrosis, hydroureter, or calculi seen. No perinephric stranding. BLADDER: Unremarkable. GASTROINTESTINAL TRACT: The small and large bowel are unremarkable. The appendix is unremarkable. ABDOMINAL WALL: No significant hernia is appreciated. There are postsurgical changes to the anterior abdominal wall. LYMPH NODES: There are small, small bowel mesentery lymph nodes. These do not appear appreciably changed. Largest lymph nodes are upper normal in size for example measuring 1 cm in short axis axial image 37 series 3. VASCULAR: Unremarkable. PELVIC VISCERA: Unremarkable. OSSEOUS STRUCTURES: Unremarkable. CT/CT abdomen pelvis w IV con IMPRESSION: Fatty liver. Postcholecystectomy. Stable low-attenuation soft tissue adjacent to the uncinate process of the head of the pancreas and small bowel mesentery lymphadenopathy. Fleischner guidelines were followed.
[2022-03-26] MEDS: iohexoL 350 MG/ML 100 ML INFUS..BTL IV (10:59)
== END 2022-03-26 08:18 | disposition home or self-care (01) ==
LOC: HO.CT 08:17
PROVIDERS: PCP Internal Medicine; Visit Provider Internal Medicine
DX: C23 Malignant neoplasm of gallbladder (principal); C50.911 Malignant neoplasm of unspecified site of right female breast
CPT/HCPCS: 74177; Q9967

== ENCOUNTER 2022-03-31 13:38 | Outpatient (AMB) | payer MEDICARE, MEDICAID, SELFPAY ==
[2022-03-31 13:41] VITALS: BP 124/80; PULSE 70; O2SAT 99; BMI 27.8
--- NOTE | 2022-03-31 13:41 | A.OFFPC_ITS ---
Vital Signs 03/31/22 13:41 Height 5 ft 7 in Weight 178 lb BMI 27.8 BP 124/80 Blood Pressure Location Rt brachial Position Sitting Pulse 70 Pulse Source Pulse Oximeter Pulse Oximetry (%) 99 Oxygen Delivery Method Room Air Intake Visit Reasons: f/u care Allergies diphenhydramine [From BENADRYL] Allergy (Intermediate, Verified 01/20/24 10:52) RASH Penicillins [PENICILLINS] Allergy (Intermediate, Verified 01/20/24 10:52) RASH LAUGHING GAS Allergy (Intermediate, Uncoded 01/20/24 10:52) RASH/HIVES/SWELLING Medication List - Last Reconciled 03/31/22 by America Stack MD cholecalciferol (vitamin D3) (Vitamin D3) 10 mcg PO DAILY mastectomy bra As Directed mastectomy bra (bra, mastectomy) As Directed mastectomy bra As Directed prosthetics As Directed sennosides (senna) 17.2 mg (2 x 8.6 mg) PO BEDTIME 30 days Tobacco use date assessed: 03/31/22 HPI f/u care HPI Details 48-year-old woman, BRCA1 positive, with a history of right breast cancer at age of 33 and left breast cancer diagnosed in 2016 at the age of 40, 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 Has been feeling overwhelmed with her multiple health problems. She has no close family members in the area, is planning to take a trip to her country [place] in the next couple of days however and does not want to get any counseling at present, but would like to be started on medications to help control her anxiety depression. Denies any suicidal ideations. [facility] Medical History (Updated 01/20/24 @ 11:14 by Addison Ruff MD) Anxiety and depression Gallbladder cancer, carcinoma Adhesive capsulitis of right shoulder Adhesive capsulitis of left shoulder Vitamin D deficiency Anxiety disorder [place] disease Breast cancer, BRCA1 positive Surgical History (Updated 11/26/23 @ 11:12 by Alannah Avilez CNM) History of colonoscopy History of cholecystectomy H/O bilateral mastectomy History of hysterectomy with bilateral oophorectomy Family History Father Prostate cancer Paternal Aunt Breast cancer Maternal Grandmother Alzheimer's dementia Mother Endometrial cancer Son No problems noted. Social History Household Members: None Housing: Apartment Are you a primary disabilities caregiver to a significant other at home: No Do you presently have visiting nurse or other home services: No Alcohol intake: never Patient Tobacco Use Status: Never used Tobacco e-Cigarette/Vaping Use: Never Used service: No Current occupational status: unemployed Gender identity: Female Cognitive needs: No Hearing needs: No Vision needs: No Female Reproductive History Menstrual Age of Menarche: 11 Questionnaire PHQ-9 Over the last 2 weeks, how often have you been bothered by any of the following problems? 1. Little interest or pleasure in doing things: nearly every day 2. Feeling down, depressed, or hopeless: nearly every day 3. Trouble falling or staying asleep, or sleeping too much: nearly every day 4. Feeling tired or having little energy: nearly every day 5. Poor appetite or overeating: nearly every day 6. Feeling bad about yourself - or that you are a failure or have let yourself or your family down: nearly every day 7. Trouble concentrating on things, such as reading the newspaper or watching television: nearly every day 8. Moving or speaking so slowly that other people could have noticed. Or the opposite - being so fidgety or restless that you have been moving around a lot more than usual: more than half the days 9. Thoughts that you would be better off or of hurting yourself in some way: several days Total score: 24 Depression Screening Interpretation: Positive (Started on medication) Depression Screening Follow-up: Community Mental Health Worker F/U Source: Developed by Drs. Shabbir Hubbard, Coreen Panchal, Farhad Basilio and colleagues, with an educational pool from [employer]. Thrive Questionnaire Declines Thrive assessment: No Date Thrive assessed: 03/31/22 I am a: Patient What is your living situation today?: I have a steady place to live Within the past 12 months, did the food you bought not last and you didn't have the money to get more?: Sometimes True Within the past 12 months, did you worry whether your food would run out before you got money to buy more?: Sometimes True Do you have trouble paying for medicines?: No Do you have trouble getting transportation to medical appointments?: No Do you have trouble paying your heating and electricity bill?: Yes Do you have trouble taking care of your child, family member or friend?: No Do you have trouble with day-to-day activities such as bathing, preparing meals, shopping, managing finances, etc.?: Yes Are you currently unemployed and looking for a job?: No Are you interested in more education?: No AUDIT C Alcohol Use Questionnaire (AUDIT-C) 1. How often do you have a drink containing alcohol?: Never Total Score: 0 DAVID-7 AMB Questionnaire DAVID-7 Date DAVID - 7 assessed: 03/31/22 Feeling nervous, anxious, or on edge: 3 = Nearly every day Not being able to stop or control worryin = Nearly every day Worrying too much about different things: 3 = Nearly every day Trouble relaxin = Nearly every day Being so restless that it is hard to sit still: 2 = More than half the days Becoming easily annoyed or irritable: 3 = Nearly every day Feeling afraid as if something awful might happen: 2 = More than half the days Total DAVID-7 score (0-4 normal; 5-9 mild; 10-14 moderate; 15-21 severe): 19 Source: Developed by Drs. Shabbir Hubbard, Coreen Panchal, Farhad Basilio and colleagues, with an educational pool from [employer]. DAVID-7 Assessment Billing DAVID-7 Assessment Tool: DAVID-7 Assessment 67712 Review of Systems Const All systems reviewed & are unremarkable except as noted in HPI and below Reports as per HPI ENT Reports no additional complaints Card Reports no additional complaints Resp Reports no additional complaints GI Reports no additional complaints Reports no additional complaints Physical exam (Primary Care) Vital Signs: Last Vital Signs Pulse 70 03/31/22 13:41 BP 124/80 03/31/22 13:41 Pulse Ox 99 03/31/22 13:41 Oxygen Delivery Method Room Air 03/31/22 13:41 BMI result Body Mass Index 27.8 Tobacco/Smoking Status: Tobacco use Status Tobacco use date assessed 03/31/22 03/31/22 13:50 Patient Tobacco Use Status Never used Tobacco 03/31/22 13:43 e-Cigarette/Vaping Use Never Used 03/31/22 13:50 PHQ-9: PHQ-9 Score PHQ-9: Total score 24 03/31/22 17:23 Depression Screening Interpretation: Positive (Started on medication) Depression Screening Follow-up: Community Mental Health Worker F/U Thrive Assessment: Date of Thrive Assessment Date Thrive assessed 03/31/22 03/31/22 17:23 Const General: comfortable, no acute distress and alert Orientation/consciousness: patient oriented x3 HENMT Ears: external ears normal General nose exam: Normal external nose present and No nasal discharge present Mouth: Normal oral and palatal mucosa present, oropharynx normal and moist mucous membranes Eyes General: appearance normal, both eyes and all related structures Neck Neck: Yes full ROM, Yes no lymphadenopathy and Yes supple Resp Effort & Inspection: normal respiratory effort and able to speak in complete sentences Auscultation: clear to auscultation bilaterally Cardio Rate: regular rate Rhythm: regular rhythm Heart sounds: S1 normal heart sound present and S2 normal heart sound present GI Palpation (GI): Soft to palpation, nontender and no masses Auscultation: normal bowel sounds Back/Spine/Pelvis Back: No back tenderness Neuro General: patient oriented x3, gait normal, tone normal, moves all extremities, Normal light touch and pain sensation and no focal motor deficits Cognition (Neuro): normal cognition Extrem General: Yes full ROM, Yes no joint enlargement, Yes no clubbing, cyanosis or edema and Yes no calf tenderness Psych Appearance: grossly normal and well kempt Mental Status: mental status grossly normal Speech and movement: Normal speech and movement present Affect: normal affect Attitude: cooperative Thought process: Normal thought process present Thought content: Normal thought content present Assessment and Plan Assessment & Plan (1) Anxiety and depression: Code(s): F41.9 - Anxiety disorder, unspecified; F32.A - Depression, unspecified Medications: New sertraline take 25 mg (0.5 tab) once a day for the 1st week , then increase to 50 mg once a day afterwards 50 mg PO DAILY 30 tabs 2RF F41.9 - Anxiety disorder, unspecified, F32.A - Depression, unspecified Coding Level of Care Code Est Pt Level 3 (96716) Diagnoses Anxiety and depression F41.9; F32.A Additional Codes DAVID-7 Assessment Billing - DAVID-7 Assessment Tool: DAVID-7 Assessment [id number] ([id number])
== END 2022-03-31 14:31 | disposition home or self-care (01) ==
PROVIDERS: PCP Internal Medicine; Visit Provider Internal Medicine
DX: F41.9 Anxiety disorder, unspecified (principal); F32.A Depression, unspecified
CPT/HCPCS: 99499

== ENCOUNTER → 2022-07-15 09:20 | Outpatient (BNVA) | payer MEDICARE, MEDICAID, SELFPAY | PROVIDERS: PCP Internal Medicine; Visit Provider Anesthesiology | DX: G89.4 Chronic pain syndrome (principal); C50.911 Malignant neoplasm of unspecified site of right female breast; C23 Malignant neoplasm of gallbladder; R17 Unspecified jaundice; I89.0 Lymphedema, not elsewhere classified; F41.9 Anxiety disorder, unspecified; F32.A Depression, unspecified; Z90.710 Acquired absence of both cervix and uterus; Z15.01 Genetic susceptibility to malignant neoplasm of breast; Z15.09 Genetic susceptibility to other malignant neoplasm | CPT/HCPCS: 99202 ==

== ENCOUNTER 2022-10-12 11:02 | Outpatient (REF) | payer MEDICARE, MEDICAID, SELFPAY ==
[2022-10-16 02:58] LABS: HPV 16 RNA NOT DETECTED (NOT DETECTED); HPV mRNA E6/E7 rflx Detected (Not Detected)
== END 2022-10-12 11:03 | disposition home or self-care (01) ==
LOC: HO.LNP 11:02
PROVIDERS: PCP Internal Medicine; Visit Provider Advanced Practice Midwife
DX: Z01.419 Encounter for gynecological examination (general) (routine) without abnormal findings (principal); Z11.51 Encounter for screening for human papillomavirus (HPV); R87.610 Atypical squamous cells of undetermined significance on cytologic smear of cervix (ASC-US); R87.810 Cervical high risk human papillomavirus (HPV) DNA test positive
CPT/HCPCS: 87624; 87625; 88142; G0101

== ENCOUNTER 2022-10-15 07:41 | Outpatient (REF) | payer MEDICARE, MEDICAID, SELFPAY ==
--- NOTE | ~2022-10-15 | CT_ITS ---
EXAMINATION: CT ABDOMEN AND PELVIS WITH CONTRAST CLINICAL INFORMATION: Gallbladder cancer COMPARISON: Previous CT of the abdomen and pelvis most recent March 2022 TECHNIQUE: Multidetector volumetric images were obtained from the superior aspect of the liver through the pubic symphysis following administration 85 mL of Omnipaque 350 intravenous contrast. Sagittal and coronal reformatted images were obtained on the technologist's workstation. Oral contrast: Yes This CT examination was performed using dose optimization techniques as appropriate, variously including the following: *Automated exposure control *Adjustment of mA and/or kV according to patient size (this includes techniques or standardized protocols for targeted exams where dose is matched to indication/reason for exam; i.e. extremities or head) *Use of iterative reconstruction technique DLP: 434 mGy-cm FINDINGS: LUNG BASES: Small peripheral or subpleural nodules probably representing subpleural lymph nodes. These are similar to previous exams. Bilateral mastectomy and breast prostheses. LIVER, GALLBLADDER, AND BILIARY TREE: The liver is low in attenuation suggestive of fatty infiltration. No focal liver lesion. The gallbladder has been removed. There is no intrahepatic biliary duct dilatation. Common bile duct is slightly dilated measuring up to 1 to 1.1 cm down to the head of the pancreas. This is increased from approximately 1.6 cm previous exams. PANCREAS: Question gradually increasing low-attenuation soft tissue adjacent to the inferior uncinate process of the head of the pancreas and SMV. The pancreas is otherwise normal. The main pancreatic duct does not appear dilated. SPLEEN: Unremarkable. ADRENAL GLANDS: Unremarkable. KIDNEYS AND URETERS: The kidneys are normal in size, shape, and attenuation. No hydronephrosis, hydroureter, or calculi seen. No perinephric stranding. BLADDER: Not optimally distended. Question mild diffuse bladder wall thickening. GASTROINTESTINAL TRACT: The small and large bowel are unremarkable. The appendix is unremarkable. ABDOMINAL WALL: Stable postsurgical changes to the anterior abdominal wall. LYMPH NODES: Small, small bowel mesentery lymph nodes. Similar to previous exams. No enlarged lymph nodes. No ascites. VASCULAR: Unremarkable. PELVIC VISCERA: Unremarkable. OSSEOUS STRUCTURES: Unremarkable. CT/CT abdomen pelvis w IV con IMPRESSION: Slight interval increase in common bile duct dilatation and question gradual increase in low-attenuation soft tissue adjacent to the inferior uncinate process of the head of the pancreas. Fleischner guidelines were followed.
[2022-10-15] MEDS: iohexoL 350 MG/ML 100 ML INFUS..BTL IV (08:27)
== END 2022-10-15 07:42 | disposition home or self-care (01) ==
LOC: HO.CT 07:41
PROVIDERS: PCP Internal Medicine; Visit Provider Internal Medicine
DX: C23 Malignant neoplasm of gallbladder (principal)
CPT/HCPCS: 74177; Q9967

== ENCOUNTER 2022-10-27 08:41 | Outpatient (REF) | payer MEDICARE, MEDICAID, SELFPAY ==
[2022-10-27 10:23] LABS: Carcinoembryonic Antigen < 1.73 ng/mL
[2022-10-30 09:09] LABS: Carbohydrate Antigen 19-9 20 U/mL (<34)
== END 2022-10-27 08:42 | disposition home or self-care (01) ==
LOC: HO.LAB 08:41
PROVIDERS: PCP Internal Medicine; Visit Provider Internal Medicine
DX: C23 Malignant neoplasm of gallbladder (principal); K86.89 Other specified diseases of pancreas; Z85.3 Personal history of malignant neoplasm of breast
CPT/HCPCS: 36415; 82378; 86301

== ENCOUNTER 2022-11-24 09:26 | Outpatient (AMB) | payer MEDICARE, MEDICAID, SELFPAY ==
--- NOTE | 2022-11-24 10:37 | AM.OFFWIN_ITS ---
Intake Vital Signs 11/24/22 10:43 BP 130/80 Blood Pressure Location Lt brachial Position Sitting Pulse 78 Pulse Source Pulse Oximeter Pulse Oximetry (%) 98 Oxygen Delivery Method Room Air Intake Visit Reasons: EP pain in finger and feet Intake Note: Patient here for pain in hand, fingers and feet for a few months. Patient Tobacco Use Status: Never used Tobacco Allergies diphenhydramine [From BENADRYL] Allergy (Intermediate, Verified 11/24/22 10:43) RASH Penicillins [PENICILLINS] Allergy (Intermediate, Verified 11/24/22 10:43) RASH LAUGHING GAS Allergy (Intermediate, Uncoded 11/24/22 10:43) RASH/HIVES/SWELLING Do you need a note to return to daycare/school/sports/work: No HPI EP pain in finger and feet HPI Details Patient presents with aching pain in bilateral fingers and feet. She notes history of seeing Rheumatology and was told she had RA but no treatment. She has been to pain management as well but they want to do injections into her fingers which she declined. Of note she also has recent history of breast cancer with chemotherapy and radiation treatment. It also sounds as she may have a cancer or liver issue which is undergoing workup. She had previously been on gabapentin for this pain with some relief. She has a little bit left which she recently restarted at she would like to continue with it. She denies fevers, injuries, history of diabetes other joint pain beyond what is described in the hands and feet. [facility] Medical History (Updated 10/29/22 @ 12:53 by Jocelyn Narayan CNM) Adhesive capsulitis of left shoulder Adhesive capsulitis of right shoulder Anxiety and depression Anxiety disorder Breast cancer, BRCA1 positive Gallbladder cancer, carcinoma [place] disease Vitamin D deficiency Surgical History (Updated 10/12/22 @ 12:04 by Jocelyn Narayan CNM) H/O bilateral mastectomy History of cholecystectomy History of colonoscopy History of hysterectomy with bilateral oophorectomy Family History Father Prostate cancer Paternal Aunt Breast cancer Maternal Grandmother Alzheimer's dementia Mother Endometrial cancer Social History Household Members: None Housing: Apartment Are you a primary child care nurse to a significant other at home: No Do you presently have visiting nurse or other home services: No Alcohol intake: never Patient Tobacco Use Status: Never used Tobacco e-Cigarette/Vaping Use: Never Used service: No Current occupational status: unemployed Gender identity: Female Cognitive needs: No Hearing needs: No Vision needs: No Female Reproductive History Menstrual Age of Menarche: 11 Review of Systems Const Reports as per HPI and Reports no additional complaints Card Reports as per HPI and Reports no additional complaints Resp Reports as per HPI and Reports no additional complaints GI Reports as per HPI and Reports no additional complaints Musc Reports no additional complaints and Reports as per HPI Skin/Breast Denies lesions Neuro Reports no additional complaints and Reports as per HPI Physical Exam Vital Signs: Last Vital Signs Pulse 78 11/24/22 10:43 BP 130/80 11/24/22 10:43 Pulse Ox 98 11/24/22 10:43 Oxygen Delivery Method Room Air 11/24/22 10:43 Const General: cooperative, comfortable and no acute distress Orientation/consciousness: patient oriented x3 Resp Effort & Inspection: normal respiratory effort Auscultation: clear to auscultation bilaterally Cardio Rate: regular rate Rhythm: regular rhythm Heart sounds: S1 normal heart sound present and S2 normal heart sound present Neuro General: patient oriented x3 Extrem Other: Exam of the upper and lower extremities are grossly normal with normal neuro and vascular status no nodule, nodule deformity, rubor, calor or edema. full range of motion. Normal strength. Assessment & Plan Assessment & Plan (1) Paresthesia of upper and lower extremities of both sides: Code(s): R20.2 - Paresthesia of skin Plan: She will restart gabapentin. We did also discuss a course of prednisone which she declines at this time I also offered referral back to Rheumatology which she declines at this time. Will report lab results as available. Keep follow-up with her regular doctors an oncologist. Return to clinic with any concerns. Orders: Orders Vitamin B12 and Folate Today R20.2 - Paresthesia of skin Hemoglobin A1c Today R20.2 - Paresthesia of skin Vitamin D 25-OH (D2 and D3) Today R20.2 - Paresthesia of skin Medications: New gabapentin 300 mg PO TID 90 caps 0RF Coding Level of Care Code Est Pt Level 3 (55864) Diagnoses Paresthesia of upper and lower extremities of both sides R20.2
[2022-11-24 10:43] VITALS: BP 130/80; PULSE 78; O2SAT 98
== END 2022-11-24 11:11 | disposition home or self-care (01) ==
PROVIDERS: PCP Internal Medicine; Visit Provider Physician Assistant
DX: R20.2 Paresthesia of skin (principal)
CPT/HCPCS: 99213

== ENCOUNTER 2023-09-06 11:38 | Outpatient (REF) | payer MEDICARE, MEDICAID, SELFPAY ==
--- NOTE | ~2023-09-06 | CT_ITS ---
EXAMINATION: CT ABDOMEN AND PELVIS WITHOUT CONTRAST CLINICAL INFORMATION: Surveillance. Patient refusing contrast. Patient with history of gallbladder cancer. COMPARISON: Several prior CT scans of the abdomen and pelvis, most recent of which is dated 10/15/2022. TECHNIQUE: Multidetector volumetric imaging was performed from the superior aspect of the liver through the pubic symphysis. Patient declined intravenous contrast. Sagittal and coronal reformatted images were obtained on the technologist workstation. This CT examination was performed using dose optimization techniques as appropriate, variously including the following: *Automated exposure control *Adjustment of mA and/or kV according to patient size (this includes techniques or standardized protocols for targeted exams where dose is matched to indication/reason for exam; i.e. extremities or head) *Use of iterative reconstruction technique DLP: 454.2 mGy-cm. FINDINGS: LUNG BASES: Mild dependent atelectasis in both lower lobes. The patient is status post bilateral mastectomy. LIVER, GALLBLADDER, AND BILIARY TREE: The liver is normal in size, shape, and attenuation. No focal hepatic lesion on noncontrast imaging. No intrahepatic biliary ductal dilatation is present. Common bile duct measures 0.9 cm in maximal diameter, consistent with patient's postcholecystectomy state. The gallbladder is surgically absent. PANCREAS: Similar hypodense appearance of the uncinate process and inferior most pancreatic head again seen, similar to prior exams dating back to 04/20/2017, perhaps related to chronic fatty infiltration. There is otherwise unremarkable. SPLEEN: There is a tiny 0.6 cm accessory splenule along the inferomedial margin of the spleen.. ADRENAL GLANDS: Unremarkable on noncontrast imaging. KIDNEYS AND URETERS: The kidneys are normal in size, shape, and attenuation. No hydronephrosis, hydroureter, or calculi seen. No perinephric stranding. BLADDER: Not well assessed due to decompression. There is a prominent fibrous remnant of the urachus seen extending up to the umbilical level. PELVIC VISCERA: Unremarkable. GASTROINTESTINAL TRACT: There is a small amount of groundglass opacities seen at the root of the small bowel mesentery and multiple enlarged mesenteric lymph nodes are seen, measuring up to 0.8 cm in short axis, similar to previous exams, suggesting chronic low-grade mesenteritis. The small and large bowel are unremarkable. The appendix is unremarkable. ABDOMINAL WALL: No significant hernia is appreciated. Stable linear bands of density seen in the anterior lower abdominal wall, similar to prior exams, presumably postsurgical in nature. LYMPH NODES, VASCULAR: Several small subcentimeter sized mesenteric lymph nodes are seen as discussed above. No enlarging abdominal or pelvic adenopathy or free fluid. Abdominal aorta normal in caliber with minimal atherosclerotic calcification seen.. OSSEOUS STRUCTURES: Mild lower thoracic and moderate mid lumbar spondylosis. Small sclerotic bone island in the right side of L4 vertebral body. No suspicious bone findings. CT/CT abdomen pelvis wo IV con IMPRESSION: * Status post cholecystectomy with no evidence of residual or recurrent mass in the gallbladder fossa. Mild resultant extrahepatic ductal dilatation is seen, similar to prior exams.. * No evidence of metastatic disease to the abdomen or pelvis is seen. 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 * Stable hypodense appearance of the uncinate process and inferior most pancreatic head, perhaps related to chronic fatty infiltration. No definite evolving mass appreciated on noncontrast exam.
== END 2023-09-06 11:39 | disposition home or self-care (01) ==
LOC: HO.CT 11:38
PROVIDERS: PCP Internal Medicine; Visit Provider Internal Medicine
DX: C23 Malignant neoplasm of gallbladder (principal)
CPT/HCPCS: 74176

== ENCOUNTER 2023-09-07 10:11 | Outpatient (REF) | payer MEDICARE, MEDICAID, SELFPAY ==
[2023-09-07 18:15] LABS: CT PCR NOT DETECTED (Not Detect.); NG PCR NOT DETECTED (Not Detect.)
[2023-09-08 15:03] LABS: BV Int Neg Control Negative (Negative); BV Int Pos Control Positive (Positive)
== END 2023-09-07 10:12 | disposition home or self-care (01) ==
LOC: HO.LAB 10:11
PROVIDERS: PCP Internal Medicine; Visit Provider Advanced Practice Midwife
DX: R35.0 Frequency of micturition (principal); N94.9 Unspecified condition associated with female genital organs and menstrual cycle; Z20.2 Contact with and (suspected) exposure to infections with a predominantly sexual mode of transmission; R39.15 Urgency of urination; N95.2 Postmenopausal atrophic vaginitis
CPT/HCPCS: 0353U; 81003; 87480; 87510; 87660; 99212

== ENCOUNTER 2023-09-07 10:11 | Outpatient (AMB) | payer MEDICARE, MEDICAID, SELFPAY ==
[2023-09-07 10:16] VITALS: BP 106/70; BMI 26.5
--- NOTE | 2023-09-07 10:16 | A.OFFVIS_ITS ---
Vital Signs 09/07/23 10:16 Height 5 ft 7 in Weight 169 lb BMI 26.5 BP 106/70 Intake Visit Reasons: ? infection Intake Note: urinary freq Inspector Multifocal Lens: Inspector Multifocal Lens Present (Ya) Allergies diphenhydramine [From BENADRYL] Allergy (Intermediate, Verified 09/07/23 10:16) RASH Penicillins [PENICILLINS] Allergy (Intermediate, Verified 09/07/23 10:16) RASH LAUGHING GAS Allergy (Intermediate, Uncoded 07/15/23 13:03) RASH/HIVES/SWELLING HPI Comments Details: Patient is here today with concerns that she has some frequency and urgency of urination. She admits to having recent episode of alcohol intake which is not her normal, and has tea usual twice a day. She denies any vaginal irritation odors or abnormal discharge. She has a follow up CT appointment with her oncologist and is concerned that she may have had a bladder issue she would like to follow-up after that appointment here. History of breast cancer x2, positive BRCA 1, history of bilateral oophorectomy salpingectomy and hysterectomy, history of gallbladder cancer. She has a scheduled annual exam in early October. [facility] Medical History Anxiety and depression Gallbladder cancer, carcinoma Adhesive capsulitis of right shoulder Adhesive capsulitis of left shoulder Vitamin D deficiency Anxiety disorder Simpson disease Breast cancer, BRCA1 positive Surgical History History of colonoscopy History of cholecystectomy H/O bilateral mastectomy History of hysterectomy with bilateral oophorectomy Family History Father Prostate cancer Paternal Aunt Breast cancer Maternal Grandmother Alzheimer's dementia Mother Endometrial cancer Son No problems noted. Social History Household Members: None Housing: Apartment Are you a primary director of healthcare systems to a significant other at home: No Do you presently have visiting nurse or other home services: No Alcohol intake: never Patient Tobacco Use Status: Never used Tobacco e-Cigarette/Vaping Use: Never Used service: No Current occupational status: unemployed Gender identity: Female Cognitive needs: No Hearing needs: No Vision needs: No Female Reproductive History Menstrual Age of Menarche: 11 Review of Systems Const All systems reviewed & are unremarkable except as noted in HPI and below Physical Exam Vital Signs: Last Vital Signs BP 106/70 09/07/23 10:16 BMI result Body Mass Index 26.5 Const General: cooperative, healthy appearing and no acute distress Orientation/consciousness: patient oriented x3 GI Inspection: Yes normal to inspection Palpation (GI): Soft to palpation and Other GI palpation findings present (Nontender) Rectal Exam - Female: visual inspection normal Other: Tense with the exam due to atrophic changes General: Yes bladder normal to palpation External Female Exam: normal appearance of the urethra Speculum Exam - Vagina: normal appearance of the vagina, normal palpation, normal vaginal discharge and vagina atrophic Speculum Exam - Cervix: normal appearance of the cervix and Cervix absent (Small cervical remnant or pocket to the rt. ? healing abrasion lower crease) Bimanual exam- vagina & uterus: normal bimanual exam, normal palpation, bladder normal to palpation and uterus absent Bimanual Exam- Adnexa, other: normal adnexae Neuro General: patient oriented x3 Results AMB Urinalysis, Automated UA Leukoctes 0.5 Becka/uL Last Edit by TIFFANY Ross on 09/07/23 10:2 9 UA Nitrite Negative Last Edit by TIFFANY Ross on 09/07/23 10:29 UA Urobilinogen 0 mg/dL Last Edit by TIFFANY Ross on 09/07/23 10:2 9 UA Protein 0 mg/dL Last Edit by TIFFANY Ross on 09/07/23 10:29 UA pH 6.5 Last Edit by TIFFANY Ross on 09/07/23 10:29 UA Blood 0 [place]/uL Last Edit by TIFFANY Ross on 09/07/23 10:29 UA Specific [place] 1.015 Last Edit by TIFFANY Ross on 09/07/23 10:29 UA Ketone Negative Last Edit by TIFFANY Ross on 09/07/23 10:29 UA Bilirubin 0 mg/dL Last Edit by TIFFANY Ross on 09/07/23 10:29 UA Glucose 0 mg/dL Last Edit by TIFFANY Ross on 09/07/23 10:29 Results Reviewed Results Reviewed: Laboratory Last Values Urine pH (Auto) 6.5 09/07/23 10:21 Specific [place] (Auto) 1.015 09/07/23 10:21 Urine Protein (Auto) 0 mg/dL 09/07/23 10:21 Glucose (UA)(Auto) 0 mg/dL 09/07/23 10:21 Urine Ketones (Auto) Negative 09/07/23 10:21 Urine Blood (Auto) 0 [place]/uL 09/07/23 10:21 Urine Nitrite (Auto) Negative 09/07/23 10:21 Urine Bilirubin (Auto) 0 mg/dL 09/07/23 10:21 Urine Urobilinogen (Auto) 0 mg/dL 09/07/23 10:21 Leukocyte Esterase (Auto) 0.5 Becka/uL 09/07/23 10:21 Assessment & Plan Assessment & Plan (1) Urinary frequency: Code(s): R35.0 - Frequency of micturition (2) Urinary urgency: Code(s): R39.15 - Urgency of urination (3) Atrophic vaginitis: Code(s): N95.2 - Postmenopausal atrophic vaginitis Plan BV panel and GC chlamydia obtained. Urine dip was normal today. She has a follow up with her oncologist to discuss her recent CT report that is pending from yesterday. Discussed a referral to urology for urinary symptoms., she would like to hold off until she speak to the oncologist. Advised to hydrate well avoid any triggers to the bladder that are irritants such as caffeine, alcohol, acidic foods, sugary and carbonated beverages. Patient has an annual in approximately a month will do a follow up exam at that point unless there is any vaginal bleeding or irritation. She has significant atrophic changes in his not a candidate for estrogen, I recommend she start Replens moisturizer in additionally she can continue to use lubricant. All of her questions and concerns were addressed to the best of my ability and shared decision making. She is agreeable to the plan of care. This note is constructed using voice recognition software. While every effort has been made to ensure accuracy, sander operator errors may have been included. Orders: Orders AMB Urinalysis Automated Today R35.0 - Frequency of micturition Bacterial Vaginosis Panel Today N94.9 - Unspecified condition associated with female genital organs and menstrual cycle, R35.0 - Frequency of micturition CT NG by PCR Today N94.9 - Unspecified condition associated with female genital organs and menstrual cycle, R35.0 - Frequency of micturition Coding Level of Care Code Est Pt Level 3 (23813) Diagnoses Urinary frequency R35.0 Urinary urgency R39.15 Atrophic vaginitis N95.2
== END 2023-09-07 11:20 | disposition home or self-care (01) ==
PROVIDERS: PCP Internal Medicine; Visit Provider Advanced Practice Midwife
DX: R35.0 Frequency of micturition (principal); R39.15 Urgency of urination; N95.2 Postmenopausal atrophic vaginitis
CPT/HCPCS: 99213

== ENCOUNTER 2023-09-07 11:00 | Outpatient (REF) | payer MEDICARE, MEDICAID, SELFPAY | END 2023-09-07 11:01 | disposition home or self-care (01) | LOC: HO.LNP 11:00 | PROVIDERS: Visit Provider Advanced Practice Midwife | DX: Z13.89 Encounter for screening for other disorder (principal) ==

== ENCOUNTER 2023-10-15 09:18 | Outpatient (AMB) | payer MEDICARE, MEDICAID, SELFPAY ==
[2023-10-15 09:36] VITALS: BP 120/78; PULSE 68; TEMP 36.5; O2SAT 98; BMI 27.1
--- NOTE | 2023-10-15 09:36 | AM.OFFWIN_ITS ---
Intake Vital Signs 10/15/23 09:36 Height 5 ft 7 in Weight 173 lb BMI 27.1 BP 120/78 Blood Pressure Location Lt brachial Position Sitting Pulse 68 Pulse Source Pulse Oximeter Temp 97.7 F Temp Source Temporal Artery Scan Pulse Oximetry (%) 98 Oxygen Delivery Method Room Air Intake Visit Reasons: EPLT eye discharge Intake Note: pt is here today for eye discharge started wednesday Patient Tobacco Use Status: Never used Tobacco Allergies diphenhydramine [From BENADRYL] Allergy (Intermediate, Verified 10/15/23 09:56) RASH Penicillins [PENICILLINS] Allergy (Intermediate, Verified 10/15/23 09:56) RASH LAUGHING GAS Allergy (Intermediate, Uncoded 10/15/23 09:56) RASH/HIVES/SWELLING Medication List - Last Reconciled 10/15/23 by Jayla Nair CNP cholecalciferol (vitamin D3) (Vitamin D3) 10 mcg PO DAILY gabapentin 300 mg PO TID mastectomy bra As Directed mastectomy bra (bra, mastectomy) As Directed mastectomy bra As Directed prosthetics As Directed sennosides (senna) 17.2 mg (2 x 8.6 mg) PO BEDTIME 30 days sertraline 50 mg PO DAILY Do you need a note to return to daycare/school/sports/work: No HPI HPI Comments History of Present Illness Details 48-year-old female presents to walk-in [facility] for complaint of left eye pain and discharge x 3 days. She reports waking up in the morning with crusty yellowish green eyelash, describes irritation as grainy sensation to left eye, and sensitivity to light. She denies recent cold, allergies, fever, chills, CP, SOB, changes in bowels or bladder. [facility] Medical History Anxiety and depression Gallbladder cancer, carcinoma Adhesive capsulitis of right shoulder Adhesive capsulitis of left shoulder Vitamin D deficiency Anxiety disorder [place] disease Breast cancer, BRCA1 positive Surgical History History of colonoscopy History of cholecystectomy H/O bilateral mastectomy History of hysterectomy with bilateral oophorectomy Family History Father Prostate cancer Paternal Aunt Breast cancer Maternal Grandmother Alzheimer's dementia Mother Endometrial cancer Son No problems noted. Social History Household Members: None Housing: Apartment Are you a primary daytime caregiver to a significant other at home: No Do you presently have visiting nurse or other home services: No Alcohol intake: never Patient Tobacco Use Status: Never used Tobacco e-Cigarette/Vaping Use: Never Used service: No Current occupational status: unemployed Gender identity: Female Cognitive needs: No Hearing needs: No Vision needs: No Female Reproductive History Menstrual Age of Menarche: 11 Review of Systems Const All systems reviewed & are unremarkable except as noted in HPI and below Physical Exam Vital Signs: Last Vital Signs Temp 97.7 F 10/15/23 09:36 Pulse 68 10/15/23 09:36 BP 120/78 10/15/23 09:36 Pulse Ox 98 10/15/23 09:36 Oxygen Delivery Method Room Air 10/15/23 09:36 BMI result Body Mass Index 27.1 Const General: no acute distress and well developed Orientation/consciousness: patient oriented x3 Limitations: no limitations Eyes Periorbital: periorbital findings abnormal left periorbital tenderness and periorbital erythema Conjunctivae: conjunctival abnormal left discharge purulent Sclerae: scleral abnormal bilateral other (slightly icterus) Corneas: corneas normal Pupils: Equal, round and reactive pupils present EOM: EOMs intact bilaterally Resp Effort & Inspection: normal respiratory effort, no cough, no respiratory distress and not tachypneic Auscultation: clear to auscultation bilaterally Cardio Rate: regular rate Rhythm: regular rhythm Heart sounds: S1 normal heart sound present and S2 normal heart sound present GI Palpation (GI): Soft to palpation Auscultation: normal bowel sounds General: Yes no CVA tenderness Back/Spine/Pelvis Back: no CVA tenderness Skin General skin exam: turgor normal Neuro General: patient oriented x3 Cranial nerves: Yes Equal, round and reactive pupils present Psych Appearance: well kempt Mental Status: mental status grossly normal Affect: normal affect Attitude: cooperative Assessment & Plan Assessment & Plan (1) Blepharitis of eyelid of left eye: Code(s): H01.006 - Unspecified blepharitis left eye, unspecified eyelid Qualifiers: Blepharitis type: unspecified type Eyelid: both upper and lower Qualified Code(s): H01.00B - Unspecified blepharitis left eye, upper and lower eyelids Plan: Polymxin B Sulf-trimethoprim 1 drop left eye tid x 5 days OTC saline drops for comfort prn Keep left eye clean, may use warm moist cloth compresses tid for swelling and discomfort. Return to office for worsening or unresolved symptoms. Medications: New polymyxin B sulf-trimethoprim 10,000 unit- 1 mg/mL while awake; do not exceed 6 doses in 24 hours 1 drp ophthalmic-Left TID 10 mL 0RF 5 days H01.006 - Unspecified blepharitis left eye, unspecified eyelid Coding Level of Care Code Est Pt Level 2 (65825) Diagnoses Blepharitis of both upper and lower eyelid of left eye, unspecified type H01.00B Blepharitis type: unspecified type Eyelid: both upper and lower
== END 2023-10-15 10:16 | disposition home or self-care (01) ==
PROVIDERS: PCP Internal Medicine; Visit Provider Nurse Practitioner Acute Care
DX: H01.00B Unspecified blepharitis left eye, upper and lower eyelids (principal)
CPT/HCPCS: 99212

== ENCOUNTER 2023-10-30 09:18 | Outpatient (AMB) | payer MEDICARE, MEDICAID, SELFPAY ==
[2023-10-30 09:32] VITALS: BP 112/72; PULSE 64; TEMP 36.9; O2SAT 97; BMI 26.9
--- NOTE | 2023-10-30 09:32 | MHC.OFFWIV ---
Intake Vital Signs 10/30/23 09:32 Height 5 ft 7 in Weight 172 lb BMI 26.9 BP 112/72 Blood Pressure Location Rt brachial Position Sitting Pulse 64 Pulse Source Pulse Oximeter Temp 98.4 F Temp Source Oral Pulse Oximetry (%) 97 Oxygen Delivery Method Room Air Intake Visit Reasons: EP throat irritation headache Intake Note: Pt is here today c/o consent clearing her throat and headaches [id number] Patient Tobacco Use Status: Never used Tobacco Allergies diphenhydramine [From BENADRYL] Allergy (Intermediate, Verified 10/30/23 09:33) RASH Penicillins [PENICILLINS] Allergy (Intermediate, Verified 10/30/23 09:33) RASH LAUGHING GAS Allergy (Intermediate, Uncoded 10/30/23 09:33) RASH/HIVES/SWELLING HPI HPI Comments History of Present Illness Details 48-year-old female presents for throat irritation. Denies fevers or chills complaining of increased phlegm in no respiratory symptoms or pain with swallowing PFSH Medical History Anxiety and depression Gallbladder cancer, carcinoma Adhesive capsulitis of right shoulder Adhesive capsulitis of left shoulder Vitamin D deficiency Anxiety disorder [place] disease Breast cancer, BRCA1 positive Surgical History History of colonoscopy History of cholecystectomy H/O bilateral mastectomy History of hysterectomy with bilateral oophorectomy Family History Father Prostate cancer Paternal Aunt Breast cancer Maternal Grandmother Alzheimer's dementia Mother Endometrial cancer Son No problems noted. Social History Household Members: None Housing: Apartment Are you a primary personal care worker to a significant other at home: No Do you presently have visiting nurse or other home services: No Alcohol intake: never Patient Tobacco Use Status: Never used Tobacco e-Cigarette/Vaping Use: Never Used service: No Current occupational status: unemployed Gender identity: Female Cognitive needs: No Hearing needs: No Vision needs: No Female Reproductive History Menstrual Age of Menarche: 11 Review of Systems ENT Details: Increased phlegm Physical Exam Vital Signs: Last Vital Signs Temp 98.4 F 10/30/23 09:32 Pulse 64 10/30/23 09:32 BP 112/72 10/30/23 09:32 Pulse Ox 97 10/30/23 09:32 Oxygen Delivery Method Room Air 10/30/23 09:32 BMI result Body Mass Index 26.9 Const General: cooperative, healthy appearing, no acute distress and alert Orientation/consciousness: patient oriented x3 Limitations: no limitations HEENT Other: Tonsils 1+ bilaterally mild erythema no exudates Head: Yes normal to inspection Ears: hearing grossly normal bilaterally General nose exam: Normal external nose present Resp Effort & Inspection: normal respiratory effort and able to speak in complete sentences Cardio Rate: regular rate Skin General skin exam: no rashes or lesions noted Neuro General: patient oriented x3 Extrem General: Yes normal to inspection Assessment & Plan Assessment & Plan (1) Phlegm in throat: Code(s): R09.89 - Other specified symptoms and signs involving the circulatory and respiratory systems Plan: Unclear etiology of patient's phlegm in the throat. Likely benign could resemble allergies will recommend starting cetirizine Medications: New cetirizine (All Day Allergy (cetirizine)) 10 mg PO DAILY PRN 30 caps 0RF allergy symptoms Coding Level of Care Code Est Pt Level 3 (10792) Diagnoses Phlegm in throat R09.89
== END 2023-10-30 10:23 | disposition home or self-care (01) ==
PROVIDERS: PCP Internal Medicine; Visit Provider Physician Assistant
DX: R09.89 Other specified symptoms and signs involving the circulatory and respiratory systems (principal)
CPT/HCPCS: 99213

== ENCOUNTER 2023-11-26 10:08 | Outpatient (REF) | payer MEDICARE, MEDICAID, SELFPAY ==
[2023-12-02 06:49] LABS: HPV 16 RNA NOT DETECTED (NOT DETECTED); HPV mRNA E6/E7 Detected (Not Detected)
== END 2023-11-26 10:09 | disposition home or self-care (01) ==
LOC: CF 10:08
PROVIDERS: PCP Internal Medicine; Visit Provider Advanced Practice Midwife
DX: Z01.419 Encounter for gynecological examination (general) (routine) without abnormal findings (principal); R87.810 Cervical high risk human papillomavirus (HPV) DNA test positive; R87.610 Atypical squamous cells of undetermined significance on cytologic smear of cervix (ASC-US); N89.8 Other specified noninflammatory disorders of vagina; Z87.42 Personal history of other diseases of the female genital tract
CPT/HCPCS: 36415; 87624; 87625; 88175; G0101; Q0091

== ENCOUNTER 2023-11-26 10:08 | Outpatient (AMB) | payer MEDICARE, MEDICAID, SELFPAY ==
--- NOTE | 2023-11-26 10:19 | A.OFFVIS_ITS ---
Vital Signs 11/26/23 10:22 Height 5 ft 7 in Weight 172 lb BMI 26.9 BP 114/74 Intake Visit Reasons: Annual Intake Note: 12/17 + hpv 8/19 +hpv 11/19 colpo 12/20 +hpv 1/22 ascus +hpv 8/22 colpo 6/23 +hpv Sfdc Technical Architect: Sfdc Technical Architect Present (Ya) Allergies diphenhydramine [From BENADRYL] Allergy (Intermediate, Verified 11/26/23 10:26) RASH Penicillins [PENICILLINS] Allergy (Intermediate, Verified 11/26/23 10:26) RASH LAUGHING GAS Allergy (Intermediate, Uncoded 10/30/23 09:33) RASH/HIVES/SWELLING HPI Comments Details: She is a premenopausal woman presenting for annual examination. Doing well with concerns: Vaginal dryness. History of depression, admits to not eating well. Currently is sexually active. Admits to vaginal dryness and occasional leads after intimacy, does not use any lubricants or moisturizers. History of prophylactic bilateral oophorectomy salpingectomy and hysterectomy, cervical stump remains. 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 History of bilateral mastectomies no implants due to difficulty post surgical insertion needed skin grafting due to radiation after breast cancer surgery. History of BRCA1 positive. [facility], [facility] Medical History (Updated 11/26/23 @ 13:06 by Alannah Avilez CNM) Anxiety and depression Gallbladder cancer, carcinoma Adhesive capsulitis of right shoulder Adhesive capsulitis of left shoulder Vitamin D deficiency Anxiety disorder [place] disease Breast cancer, BRCA1 positive Surgical History (Updated 11/26/23 @ 11:12 by Alannah Avilez CNM) History of colonoscopy History of cholecystectomy H/O bilateral mastectomy History of hysterectomy with bilateral oophorectomy Family History Father Prostate cancer Paternal Aunt Breast cancer Maternal Grandmother Alzheimer's dementia Mother Endometrial cancer Son No problems noted. Social History Household Members: None Housing: Apartment Are you a primary long term care pharmacist to a significant other at home: No Do you presently have visiting nurse or other home services: No Alcohol intake: never Patient Tobacco Use Status: Never used Tobacco e-Cigarette/Vaping Use: Never Used service: No Current occupational status: unemployed Gender identity: Female Cognitive needs: No Hearing needs: No Vision needs: No Female Reproductive History Menstrual Age of Menarche: 11 Menopause type: surgical Total pregnancies: 1 Full term: 1 Number of Living Children: 1 Date of last pap smear: 10/12/22 (neg +hpv) History of abnormal pap smear: Yes (see intake note) History of abnormal mammogram: Yes (hx breast cancer) Review of Systems Const All systems reviewed & are unremarkable except as noted in HPI and below Reports as per HPI Eyes Reports no additional complaints ENT Reports no additional complaints Card Reports no additional complaints Resp Reports no additional complaints GI Reports as per HPI and Reports no additional complaints Reports as per HPI Musc Reports no additional complaints Skin/Breast Reports as per HPI Neuro Reports no additional complaints Psych Reports no additional complaints Endo Reports no additional complaints Javad/Lymph Reports no additional complaints Aller/Immun Reports no additional complaints Physical Exam Vital Signs: Last Vital Signs BP 114/74 11/26/23 10:22 BMI result Body Mass Index 26.9 Const General: cooperative, healthy appearing, no acute distress, well developed and alert Orientation/consciousness: patient oriented x3 HEENT Head: Yes normal to inspection Eyes General: appearance normal, both eyes and all related structures Neck Neck: Yes normal visual inspection Thyroid: Thyroid normal Chest Other: bilateral scarring, mastectomies. Resp Effort & Inspection: normal respiratory effort GI Inspection: Yes normal to inspection and Yes scar Palpation (GI): Soft to palpation Rectal Exam - Female: deferred General: Yes bladder normal to palpation External Female Exam: normal external appearance and normal appearance of the urethra Speculum Exam - Vagina: normal appearance of the vagina, normal palpation, normal vaginal discharge and vagina atrophic Speculum Exam - Cervix: normal appearance of the cervix and normal palpation (rotated to the right, stenotic os, bled slightly w/pap) Bimanual exam- vagina & uterus: normal bimanual exam, normal palpation, bladder normal to palpation, normal palpation (rotated to the right, stenotic os, bled slightly w/pap) and uterus absent Bimanual Exam- Adnexa, other: no masses Skin General skin exam: no rashes or lesions noted Rashes: no rashes Neuro General: patient oriented x3 Cognition (Neuro): normal cognition Extrem General: Yes normal to inspection Psych Attitude: cooperative Thought process: Normal thought process present Assessment & Plan Assessment & Plan (1) Well woman exam with routine gynecological exam: Code(s): Z01.419 - Encounter for gynecological examination (general) (routine) without abnormal findings Category: Medical (2) Hx of abnormal cervical Pap smear: Code(s): Z87.42 - Personal history of other diseases of the female genital tract Category: Medical Plan Discussed: Current recommendations for pap smears per ASCCP guidelines. Pap obtained today. Maintain a healthy lifestyle including a well balanced diet and routine exercise. Replens moisturizer, other options with lubrication in various products reviewed. Patient verbalizes understanding and agrees to the plan of care. She was given opportunity to ask questions and all questions were answered to the best of my ability. RTO in one year for annual sales solutions associate examination. This note is constructed using voice recognition software. While every effort has been made to ensure accuracy, laboratory apparatus glass blower errors may have been included. Orders: Orders PAP + HPV E6/E7 rfx 18/45 Today R87.610 - Atypical squamous cells of undetermined significance on cytologic smear of cervix (ASC-US), R87.810 - Cervical high risk human papillomavirus (HPV) DNA test positive, Z01.419 - Encounter for gynecological examination (general) (routine) without abnormal findings Coding Level of Care Code Est Pt Prev Care 40-64y(40988) Diagnoses Well woman exam with routine gynecological exam Z01.419 Hx of abnormal cervical Pap smear Z87.42
[2023-11-26 10:22] VITALS: BP 114/74; BMI 26.9
== END 2023-11-26 11:21 | disposition home or self-care (01) ==
PROVIDERS: PCP Internal Medicine; Visit Provider Advanced Practice Midwife
DX: Z91.89 Other specified personal risk factors, not elsewhere classified (principal); Z87.42 Personal history of other diseases of the female genital tract
CPT/HCPCS: G0101; Q0091

== ENCOUNTER 2024-01-20 10:35 | Outpatient (AMB) | payer MEDICARE, MEDICAID, SELFPAY ==
--- NOTE | 2024-01-20 10:45 | A.OFFVIS_ITS ---
Vital Signs 01/20/24 10:51 Height 5 ft 7 in Weight 171 lb 15.369 oz BMI 26.9 Intake Visit Reasons: Colposcopy/45 MINS Batteryman Required: No Information Interpreted: non-clinical & clinical Assembler Flexible Leads: Assembler Flexible Leads Present (Maryse ALLEN) Accompanied by: Self / Same As Patient Allergies diphenhydramine [From BENADRYL] Allergy (Intermediate, Verified 01/20/24 10:52) RASH Penicillins [PENICILLINS] Allergy (Intermediate, Verified 01/20/24 10:52) RASH LAUGHING GAS Allergy (Intermediate, Uncoded 01/20/24 10:52) RASH/HIVES/SWELLING Post menopausal: Yes HPI Comments Details: Presenting for colposcopy for negative Pap/HPV E6/E7 positive [facility] Medical History (Updated 01/20/24 @ 11:14 by Addison Ruff MD) Anxiety and depression Gallbladder cancer, carcinoma Adhesive capsulitis of right shoulder Adhesive capsulitis of left shoulder Vitamin D deficiency Anxiety disorder [place] disease Breast cancer, BRCA1 positive Surgical History (Updated 11/26/23 @ 11:12 by Alannah Avilez CNM) History of colonoscopy History of cholecystectomy H/O bilateral mastectomy History of hysterectomy with bilateral oophorectomy Family History Father Prostate cancer Paternal Aunt Breast cancer Maternal Grandmother Alzheimer's dementia Mother Endometrial cancer Son No problems noted. Social History Household Members: None Housing: Apartment Are you a primary overnight caregiver to a significant other at home: No Do you presently have visiting nurse or other home services: No Alcohol intake: never Patient Tobacco Use Status: Never used Tobacco e-Cigarette/Vaping Use: Never Used service: No Current occupational status: unemployed Gender identity: Female Cognitive needs: No Hearing needs: No Vision needs: No Female Reproductive History Menstrual Age of Menarche: 11 Review of Systems Const All systems reviewed & are unremarkable except as noted in HPI and below Reports as per HPI and Reports no additional complaints GI Reports no additional complaints Reports no additional complaints Physical Exam Vital Signs: BMI result Body Mass Index 26.9 Office Procedures Colposcopy Colposcopy: Pre-Procedure Counseling: Before beginning the procedure, I conducted comprehensive counseling with the patient. We thoroughly discussed the procedure itself, including its details, alternatives, and all associated risks. This included but not limited to the following complications such as bleeding, infection, and injury to the vagina, bladder, and vessels, as well as the potential need for transfusion with all its associated risks. Subsequently, the patient sign the consent. Pap smear result: LSIL. Procedure: During the procedure, the following steps were performed: A speculum was inserted, and acetic acid was applied. Colposcopy was conducted, allowing visualization of the transformation zone. Acetowhite lesions were identified at the 6+11+1 o'clock position. Cervical biopsies were obtained from the 6+11+1 o'clock position, followed by an endocervical curettage (ECC). Vaginoscopy of the upper vagina revealed no evidence of aceto-white lesions. Hemostasis was achieved using Monsel solution, and the patient tolerated the procedure well. Post-Procedure Instructions: The patient was advised to promptly contact the office or the after hours answering service or go to the emergency room if experiencing a temperature exceeding 100.4?F, abdominal pain, nausea/vomiting, or bleeding. Additionally, the patient was instructed to abstain from vaginal intercourse and bathtub use. The patient confirmed understanding of these instructions. Discharge Instructions: The patient was instructed to schedule a follow-up appointment in 2 weeks for further evaluation and management. Please note that this note was generated using a voice recognition program, and errors may have occurred during counseling director. [id number] of cervix including upper vagina with biopsy and ECC Procedure code (CPT) selection complete Assessment & Plan Assessment & Plan (1) HPV (human papilloma virus) infection: Comment: Negative Pap Code(s): B97.7 - Papillomavirus as the cause of diseases classified elsewhere Category: Medical Plan: Colposcopy done, see procedure Orders: Orders AMB Colposcopy Today B97.7 - Papillomavirus as the cause of diseases classified elsewhere Coding Level of Care Code Procedure Only Diagnoses HPV (human papilloma virus) infection B97.7 CPT Codes Colposcopy - CPT: 05195-[id number] of cervix including upper vagina with biopsy and ECC ([id number])
[2024-01-20 10:51] VITALS: BMI 26.9
== END 2024-01-20 11:21 | disposition home or self-care (01) ==
PROVIDERS: PCP Internal Medicine; Visit Provider Obstetrics & Gynecology
DX: R87.810 Cervical high risk human papillomavirus (HPV) DNA test positive (principal)
CPT/HCPCS: 57454

== ENCOUNTER 2024-01-20 10:35 | Outpatient (REF) | payer MEDICARE, MEDICAID, SELFPAY | END 2024-01-20 10:36 | disposition home or self-care (01) | LOC: HO.LNP 10:35 | PROVIDERS: PCP Internal Medicine; Visit Provider Obstetrics & Gynecology | DX: A63.0 Anogenital (venereal) warts (principal) | CPT/HCPCS: 57454; 88305 ==

== ENCOUNTER 2024-01-25 14:43 | Outpatient (AMB) | payer MEDICARE, MEDICAID, SELFPAY ==
--- NOTE | 2024-01-25 14:43 | A.OFFVIS_ITS ---
Intake Visit Reasons: colpo results Allergies diphenhydramine [From BENADRYL] Allergy (Intermediate, Verified 01/20/24 10:52) RASH Penicillins [PENICILLINS] Allergy (Intermediate, Verified 01/20/24 10:52) RASH LAUGHING GAS Allergy (Intermediate, Uncoded 01/20/24 10:52) RASH/HIVES/SWELLING HPI Comments Details: The patient is scheduled tele health visit post colpo for follow-up. The patient is doing well with no complaints. The pathology showed the following: A. Endocervix, curettage: Predominantly mucus with scant endocervical glandular epithelium and rare squamous epithelium; negative for dysplasia. B. Cervix, 1:00, biopsy: Squamous mucosa; negative for dysplasia; no endocervical glandular component present. C. Cervix, 6:00, biopsy: Squamous mucosa with inflammation and reactive changes; negative for dysplasia; no endocervical glandular component present. D. Cervix, 11:00, biopsy: Minute focus of low-grade squamous intraepithelial lesion (mild dysplasia, STEPHANY I); no endocervical glandular component present 12/29 cervical biopsy showed dysplastic cyst suspicious for STEPHANY 1 [facility] Medical History Anxiety and depression Gallbladder cancer, carcinoma Adhesive capsulitis of right shoulder Adhesive capsulitis of left shoulder Vitamin D deficiency Anxiety disorder [place] disease Breast cancer, BRCA1 positive Surgical History History of colonoscopy History of cholecystectomy H/O bilateral mastectomy History of hysterectomy with bilateral oophorectomy Family History Father Prostate cancer Paternal Aunt Breast cancer Maternal Grandmother Alzheimer's dementia Mother Endometrial cancer Son No problems noted. Social History Household Members: None Housing: Apartment Are you a primary adult daycare coordinator to a significant other at home: No Do you presently have visiting nurse or other home services: No Alcohol intake: never Patient Tobacco Use Status: Never used Tobacco e-Cigarette/Vaping Use: Never Used service: No Current occupational status: unemployed Gender identity: Female Cognitive needs: No Hearing needs: No Vision needs: No Female Reproductive History Menstrual Age of Menarche: 11 Review of Systems Const All systems reviewed & are unremarkable except as noted in HPI and below Reports as per HPI and Reports no additional complaints GI Reports no additional complaints Reports no additional complaints Telehealth Telehealth Telehealth Platform: Telephone Location of provider rendering services: practice address Location of patient: address on file Patient Identification confirmed using: Name, : Yes Telehealth method: video Patient verbally consented to treatment: Yes Patient verbally consented to billing insurance company: Yes Patient informed of any privacy concerns related to visit: Yes Assessment & Plan Assessment & Plan (1) Dysplasia of cervix, low grade (STEPHANY 1): Comment: Persistent Code(s): N87.0 - Mild cervical dysplasia Category: Medical Plan: Discussed with the patient the results the pathology showing STEPHANY 1 and the results the pathology in 12/29 showing dysplastic cells suspicious STEPHANY 1, recommended LEEP possible cone with post cone ECC. Instructions given the patient to schedule a preop visit within 2 weeks all questions answered, the patient verbalized understanding. I spent a total of 20 minutes reviewing the chart, talking to the patient via video and documenting in the medical record. Coding Level of Care Code Tele Est Pt Level 1 (24671) Diagnoses Dysplasia of cervix, low grade (STEPHANY 1) N87.0
== END 2024-01-25 15:23 | disposition home or self-care (01) ==
LOC: HO.HWS 14:43
PROVIDERS: PCP Internal Medicine; Visit Provider Obstetrics & Gynecology
DX: N87.0 Mild cervical dysplasia (principal)
CPT/HCPCS: 99211

== ENCOUNTER → 2024-01-25 14:43 | Outpatient (BNVA) | payer MEDICARE, MEDICAID, SELFPAY | PROVIDERS: PCP Internal Medicine; Visit Provider Obstetrics & Gynecology ==

== ENCOUNTER 2024-02-23 11:09 | Outpatient (AMB) | payer MEDICARE, MEDICAID, SELFPAY ==
--- NOTE | 2024-02-23 11:14 | MHC.OFFVIS ---
Vital Signs 02/23/24 11:15 Height 5 ft 7 in Weight 171 lb 15.369 oz BMI 26.9 Intake Visit Reasons: pre op/ leep/ vulva lesion/yellow discharge Moving Consultant: Moving Consultant Present Allergies diphenhydramine [From BENADRYL] Allergy (Intermediate, Verified 01/20/24 10:52) RASH Penicillins [PENICILLINS] Allergy (Intermediate, Verified 01/20/24 10:52) RASH LAUGHING GAS Allergy (Intermediate, Uncoded 01/20/24 10:52) RASH/HIVES/SWELLING Is last menstrual period known: Yes Last menstrual period: 03/07/20 Post menopausal: No Patient : No Do you need a note to return to daycare/school/sports/work: Yes (for surgery on wednesday) HPI Comments Details: Presenting to discuss LEEP with possible cone post cone ECC for persistent STEPHANY 1 Complaining of vaginal discharge not associated with any odor or vulvovaginal irritation and a right buttock lesion PFSH Medical History Anxiety and depression Gallbladder cancer, carcinoma Adhesive capsulitis of right shoulder Adhesive capsulitis of left shoulder Vitamin D deficiency Anxiety disorder [place] disease Breast cancer, BRCA1 positive Surgical History History of colonoscopy History of cholecystectomy H/O bilateral mastectomy History of hysterectomy with bilateral oophorectomy Family History Father Prostate cancer Paternal Aunt Breast cancer Maternal Grandmother Alzheimer's dementia Mother Endometrial cancer Son No problems noted. Social History Household Members: None Housing: Apartment Are you a primary healthcare receptionist to a significant other at home: No Do you presently have visiting nurse or other home services: No Alcohol intake: never Patient Tobacco Use Status: Never used Tobacco e-Cigarette/Vaping Use: Never Used service: No Current occupational status: unemployed Gender identity: Female Cognitive needs: No Hearing needs: No Vision needs: No Female Reproductive History Menstrual Age of Menarche: 11 Date of last menstrual period: 03/07/20 Total pregnancies: 2 Full term: 2 Review of Systems Const All systems reviewed & are unremarkable except as noted in HPI and below Card Reports as per HPI and Reports no additional complaints Resp Reports as per HPI and Reports no additional complaints GI Reports as per HPI and Reports no additional complaints Reports as per HPI Physical Exam Vital Signs: BMI result Body Mass Index 26.9 Const General: cooperative, healthy appearing and comfortable Resp Effort & Inspection: normal respiratory effort Auscultation: clear to auscultation bilaterally Percussion: percussion normal Cardio Palpation: normal PMI Rate: regular rate Rhythm: regular rhythm Heart sounds: no murmurs and no rubs Peripheral pulses: Peripheral pulses 2+ throughout GI Inspection: Yes normal to inspection Palpation (GI): Soft to palpation, nontender, no guarding, not rigid and No hepatosplenomegaly present Percussion: Yes normal to percussion Auscultation: normal bowel sounds Rectal Exam - Female: deferred General: Yes no CVA tenderness External Female Exam: normal appearance of the urethra and other (Right buttock sebaceous cyst) Speculum Exam - Vagina: normal appearance of the vagina, normal palpation, no lesions and no masses Speculum Exam - Cervix: normal appearance of the cervix, normal palpation, no lesions, no masses and nontender Bimanual exam- vagina & uterus: normal bimanual exam, normal palpation, uterine size normal, normal palpation, uterine shape normal, No Cervical tenderness present and non-tender Bimanual Exam- Adnexa, other: normal adnexae Back/Spine/Pelvis Back: no CVA tenderness Assessment & Plan Assessment & Plan (1) Dysplasia of cervix, low grade (STEPHANY 1): Comment: Persistent Code(s): N87.0 - Mild cervical dysplasia Category: Medical Plan: Will proceed with LEEP cone was post cone ECC. Discussed with the patient the procedure, its benefits and risks including bleeding, infection, possible need for blood transfusion with all its risk ( HIV, syphilis, Hepatitis, anaphylaxis shock, others..), injury to bladder, rectum, possible re-excision for positive margins, potential need for hysterectomy, possible future negative impact on fertility including ( cervical stenosis, incompetence , increase risk for c section 2ndary to cervical scarring and failure of dilatation), possible positive margin necessitating re-excision. Also discussed the patient options of anesthesia either paracervical block versus IV sedation/MAC, prefers to proceed with IV sedation/MAC. All questions answered, the patient verbalized understanding and signed the consent. (2) Sebaceous cyst: Code(s): L72.3 - Sebaceous cyst Category: Medical Plan: Discussed with the patient the finding on exam right buttock sebaceous cyst recommended expectant management NSAIDs perirectal and asymptomatic. (3) Vaginal discharge: Code(s): N89.8 - Other specified noninflammatory disorders of vagina Category: Medical Plan: GC/CT with BV panel done. Will check the results and treat accordingly. All questions answered, the patient verbalized understood Orders: Orders Bacterial Vaginosis Panel Today N89.8 - Other specified noninflammatory disorders of vagina CT NG by PCR Today N89.8 - Other specified noninflammatory disorders of vagina Coding Level of Care Code Est Pt Level 3 (71930) Diagnoses Dysplasia of cervix, low grade (STEPHANY 1) N87.0 Sebaceous cyst L72.3 Vaginal discharge N89.8
[2024-02-23 11:15] VITALS: BMI 26.9
== END 2024-02-23 11:44 | disposition home or self-care (01) ==
LOC: HO.HWS 11:09
PROVIDERS: PCP Internal Medicine; Visit Provider Obstetrics & Gynecology
DX: N87.0 Mild cervical dysplasia (principal); L72.3 Sebaceous cyst; N89.8 Other specified noninflammatory disorders of vagina
CPT/HCPCS: 99213

== ENCOUNTER 2024-03-13 07:56 | Outpatient (REF) | payer MEDICARE, MEDICAID, SELFPAY ==
[2024-03-13 18:29] LABS: Bacterial Vaginosis PCR NEGATIVE (Negative); Candida Group PCR DETECTED (Not Detect); Candida glab krusei PCR NOT DETECTED (Not Detect); Trichomonas vaginalis PCR NOT DETECTED (Not Detect)
[2024-03-14 05:37] LABS: CT PCR NOT DETECTED (Not Detect.); NG PCR NOT DETECTED (Not Detect.)
== END 2024-03-13 07:57 | disposition home or self-care (01) ==
LOC: HO.LNP 07:56
PROVIDERS: PCP Internal Medicine; Visit Provider Obstetrics & Gynecology
DX: N89.8 Other specified noninflammatory disorders of vagina (principal)
CPT/HCPCS: 0352U; 87491; 87591; 99212

== ENCOUNTER 2024-03-13 07:56 | Outpatient (AMB) | payer MEDICARE, MEDICAID, SELFPAY ==
--- NOTE | 2024-03-13 07:59 | A.OFFVIS_ITS ---
Vital Signs 03/13/24 08:00 Height 5 ft 7 in Weight 171 lb BMI 26.8 BP 114/70 Blood Pressure Location Lt brachial Position Sitting Intake Visit Reasons: vaginal itching Allergies diphenhydramine [From BENADRYL] Allergy (Intermediate, Verified 03/13/24 08:01) RASH Penicillins [PENICILLINS] Allergy (Intermediate, Verified 03/13/24 08:01) RASH LAUGHING GAS Allergy (Intermediate, Uncoded 03/13/24 08:01) RASH/HIVES/SWELLING HPI Comments Details: Presenting complaining of vaginal discharge associated with vulvovaginal itching and not associated with any foul smell [facility] Medical History Anxiety and depression Gallbladder cancer, carcinoma Adhesive capsulitis of right shoulder Adhesive capsulitis of left shoulder Vitamin D deficiency Anxiety disorder [place] disease Breast cancer, BRCA1 positive Surgical History History of colonoscopy History of cholecystectomy H/O bilateral mastectomy History of hysterectomy with bilateral oophorectomy Family History Father Prostate cancer Paternal Aunt Breast cancer Maternal Grandmother Alzheimer's dementia Mother Endometrial cancer Son No problems noted. Social History Household Members: None Housing: Apartment Are you a primary manager urgent care to a significant other at home: No Do you presently have visiting nurse or other home services: No Alcohol intake: never Patient Tobacco Use Status: Never used Tobacco e-Cigarette/Vaping Use: Never Used service: No Current occupational status: unemployed Gender identity: Female Cognitive needs: No Hearing needs: No Vision needs: No Female Reproductive History Menstrual Age of Menarche: 11 Review of Systems Const All systems reviewed & are unremarkable except as noted in HPI and below Physical Exam Vital Signs: Last Vital Signs BP 114/70 03/13/24 08:00 BMI result Body Mass Index 26.8 General: Yes no CVA tenderness External Female Exam: normal external appearance and normal appearance of the urethra Speculum Exam - Vagina: normal appearance of the vagina, normal palpation, no lesions and no masses Speculum Exam - Cervix: normal appearance of the cervix, normal palpation, no lesions, no masses and nontender Bimanual exam- vagina & uterus: normal bimanual exam, normal palpation, uterine size normal, normal palpation, uterine shape normal, No Cervical tenderness pr esent and non-tender Bimanual Exam- Adnexa, other: normal adnexae Back/Spine/Pelvis Back: no CVA tenderness Assessment & Plan Assessment & Plan (1) Vulvovaginitis: Code(s): N76.0 - Acute vaginitis Category: Medical Plan: GC/CT with BV panel collected. Will order STD screening including HIV, syphilis screen, hepatitis-B surface antigen, hepatitis-C antibody. Treat with Diflucan 150 mg x 1. Instructions given to the patient to call in case symptoms not improve within 48 hours. All questions answered, patient verbalized understan dimas Orders: Orders Bacterial Vaginosis Panel Today N89.8 - Other specified noninflammatory disorders of vagina HIV Ab/Ag Today N76.0 - Acute vaginitis Syphilis Screen Today N76.0 - Acute vaginitis Hepatitis C Antibody Today N76.0 - Acute vaginitis CT NG by PCR Today N89.8 - Other specified noninflammatory disorders of vagina Hepatitis B Surface Antibody Today N76.0 - Acute vaginitis Medications: New fluconazole 150 mg PO ONCE 1 day 1 tab 0RF Coding Level of Care Code Est Pt Level 3 (04800) Diagnoses Vulvovaginitis N76.0
[2024-03-13 08:00] VITALS: BP 114/70; BMI 26.8
== END 2024-03-13 08:31 | disposition home or self-care (01) ==
LOC: HO.HWS 07:57
PROVIDERS: PCP Internal Medicine; Visit Provider Obstetrics & Gynecology
DX: N76.0 Acute vaginitis (principal)
CPT/HCPCS: 99213

== ENCOUNTER 2024-03-27 10:17 | Outpatient (AMB) | payer MEDICARE, MEDICAID, SELFPAY ==
[2024-03-27 10:20] VITALS: BP 145/90
--- NOTE | 2024-03-27 10:20 | A.OFFVIS_ITS ---
Vital Signs 03/27/24 10:20 BP 145/90 H Intake Visit Reasons: pre op Die Maker Required: No Protohistorian: Protohistorian Present (Shavonne) Accompanied by: Self / Same As Patient Allergies diphenhydramine [From BENADRYL] Allergy (Intermediate, Verified 03/27/24 10:21) RASH Penicillins [PENICILLINS] Allergy (Intermediate, Verified 03/27/24 10:21) RASH LAUGHING GAS Allergy (Intermediate, Uncoded 03/27/24 09:49) RASH/HIVES/SWELLING Is last menstrual period known: Yes Last menstrual period: 03/07/20 Post menopausal: No Patient : No Do you need a note to return to daycare/school/sports/work: Yes (for surgery on wednesday) [facility] Medical History Anxiety and depression Gallbladder cancer, carcinoma Adhesive capsulitis of right shoulder Adhesive capsulitis of left shoulder Vitamin D deficiency Anxiety disorder [place] disease Breast cancer, BRCA1 positive Surgical History History of colonoscopy History of cholecystectomy H/O bilateral mastectomy History of hysterectomy with bilateral oophorectomy Family History Father Prostate cancer Paternal Aunt Breast cancer Maternal Grandmother Alzheimer's dementia Mother Endometrial cancer Son No problems noted. Social History Household Members: None Housing: Apartment Are you a primary health care attorney to a significant other at home: No Do you presently have visiting nurse or other home services: No Alcohol intake: never Patient Tobacco Use Status: Never used Tobacco e-Cigarette/Vaping Use: Never Used service: No Current occupational status: unemployed Gender identity: Female Cognitive needs: No Hearing needs: No Vision needs: No Female Reproductive History Menstrual Age of Menarche: 11 Date of last menstrual period: 03/07/20 Total pregnancies: 2 Full term: 2 Review of Systems Card Reports as per HPI and Reports no additional complaints Resp Reports as per HPI and Reports no additional complaints GI Reports as per HPI and Reports no additional complaints Reports as per HPI Physical Exam Vital Signs: Last Vital Signs BP 145/90 H 03/27/24 10:20 Const General: cooperative, healthy appearing and comfortable Resp Effort & Inspection: normal respiratory effort Auscultation: clear to auscultation bilaterally Percussion: percussion normal Cardio Palpation: normal PMI Rate: regular rate Rhythm: regular rhythm Heart sounds: no murmurs and no rubs Peripheral pulses: Peripheral pulses 2+ throughout GI Inspection: Yes normal to inspection Palpation (GI): Soft to palpation, nontender, no guarding, not rigid and No hepatosplenomegaly present Percussion: Yes normal to percussion Auscultation: normal bowel sounds Rectal Exam - Female: deferred Assessment & Plan Assessment & Plan (1) Dysplasia of cervix, low grade (STEPHANY 1): Comment: Persistent Code(s): N87.0 - Mild cervical dysplasia Category: Medical Plan: The patient left without being seen Coding Level of Care Code Est Pt Level 3 (99415) Left Without Being Seen Diagnoses Dysplasia of cervix, low grade (STEPHANY 1) N87.0
== END 2024-03-27 10:45 | disposition left against medical advice (07) ==
LOC: HO.HWS 10:17
PROVIDERS: PCP Internal Medicine; Visit Provider Obstetrics & Gynecology
DX: N87.0 Mild cervical dysplasia (principal)
CPT/HCPCS: 99213

== ENCOUNTER → 2024-03-27 10:17 | Outpatient (BNVA) | payer MEDICARE, MEDICAID, SELFPAY | PROVIDERS: PCP Internal Medicine; Visit Provider Obstetrics & Gynecology | DX: Z01.818 Encounter for other preprocedural examination (principal); N87.0 Mild cervical dysplasia; Z53.21 Procedure and treatment not carried out due to patient leaving prior to being seen by health care provider | CPT/HCPCS: 99212 ==

== ENCOUNTER 2024-05-23 13:09 | Outpatient (REF) | payer MEDICARE, MEDICAID, SELFPAY ==
[2024-05-23 13:20] LABS: MANUAL DIFF FLAG NO
[2024-05-23 13:23] LABS: Basophils Absolute Auto 0.1 X10*3/uL (0.0-0.2); Basophils Percent Auto 0.7 % (0-2); Eosinophils Absolute Auto 0.2 X10*3/uL (0.0-0.4); Eosinophils Percent Auto 2.3 % (0-4); Hematocrit 39.8 % (37.0-47.0); Hemoglobin 12.7 g/dl (12.0-16.0); Imm Gran Abs Auto 0.06 X10*3/uL (0.00-0.03); Imm Gran Pct Auto 0.9 % (0.0-0.4); Lymphocytes Percent Auto 42.7 % (20-40); Mean Corpuscular HGB Conc 31.9 g/dl (31.0-35.0); Mean Corpuscular Hemoglobin 24.9 pg (27.0-33.0); Mean Corpuscular Volume 77.9 fL (80.0-98.0); Mean Platelet Volume 7.8 fL (9.4-12.3); Monocytes Absolute Auto 0.6 X10*3/uL (0.1-1.2); Monocytes Percent Auto 8.8 % (2-11); Neutrophils Absolute Auto 3.1 x10*3/uL (2.0-8.3); Neutrophils Percent Auto 44.6 % (45-73); Platelet Count 384 X10*3/uL (160-400); Red Blood Count 5.11 X10*6/uL (4.20-5.50); Red Cell Distribution Width 14.1 % (11.0-16.0)
[2024-05-23 13:51] LABS: Alanine Aminotransferase 35 U/L (0-31); Albumin Level 4.1 g/dL (3.5-5.0); Alkaline Phosphatase 139 U/L (39-117); Anion Gap 8 (12-20); Aspartate Amino Transferase 30 U/L (5-31); Bilirubin Total 2.1 mg/dL (0.0-1.0); Blood Urea Nitrogen 14 mg/dL (9-16); Calcium 9.1 mg/dL (8.4-10.2); Carbon Dioxide 32 mmol/L (22-29); Chloride 104 mmol/L (96-108); Estimated Glomerular Filt Rate > 60; Glucose Random 137 mg/dL (60-115); Potassium 3.8 mmol/L (3.3-5.1); Sodium 140 mmol/L (135-145); Total Protein 7.2 g/dL (6.5-8.0)
[2024-05-23 14:02] LABS: Vitamin D 25-OH Total 29.8 ng/mL (>30)
== END 2024-05-23 13:10 | disposition home or self-care (01) ==
LOC: HO.LAB 13:09
PROVIDERS: PCP Internal Medicine; Visit Provider Internal Medicine
DX: C50.911 Malignant neoplasm of unspecified site of right female breast (principal)
CPT/HCPCS: 36415; 80053; 82306; 85025

== ENCOUNTER 2024-05-29 07:46 | Outpatient (REF) | payer MEDICARE, MEDICAID, SELFPAY ==
--- NOTE | ~2024-05-29 | CT_ITS ---
CLINICAL HISTORY: Surveillance, history of gallbladder cancer CT abdomen pelvis with IV contrast Comparison: September 06, 2023, October 15, 2022 Findings: No acute process evident in the lung bases. Heart size normal. No pleural or pericardial effusion. Mastectomy changes and surgical changes in the anterior abdominal wall and correlation for tram or thomas reconstructions. Cholecystectomy. 9 mm common hepatic duct, 7 mm common bile duct. No intrahepatic duct dilatation. Progressive low-attenuation appearance to the undersurface of the head and uncinate process of the pancreas. Current measurement at 4.7 x 1.7 cm transverse and AP relative to 4.4 x 1.5 cm previously. No acute inflammatory change. No duct dilatation. Changes reportedly seen back to 2017, although the more remote studies not available for comparison. Spleen, adrenals and kidneys are unremarkable. Focal distention of jejunal loop in the left mid to lower abdomen, with abrupt appearing transition zone, concerning for possible small bowel neoplasm reference axial image 50, series 3, 408 series 6, coronal image 20 and sagittal image 40. Few additional fluid distended nondilated distal small bowel loops. Several regions of indistinctness of bowel wall which may relate to incomplete distention. No additional features for obstruction. Normal appendix. No diverticulitis. Normal abdominal aorta and major branch vessels. Patent hepatic veins, IVC and portal vein Several lymph nodes in the mesenteric root with slight fat stranding suggesting mesenteric panniculitis although few nodes appears slightly larger. No marked change. Urinary bladder decompressed. Pelvic viscera intact. Bones intact. Small bone island L4. Impression: Small bowel dilatation left midabdomen concerning for potential obstructing small bowel lesion. Further correlation with CT enterography . Additional fluid distended nondilated small bowel loops more conspicuous than on prior. Stable changes of cholecystectomy. No abnormality of the gallbladder fossa. Low-attenuation appearance to the inferior pancreatic head and uncinate process appears slightly larger. Additionally, small lymph nodes in the mesenteric root appears slightly larger although without marked change from earlier CTs. Remainder of the exam appears stable to priors. This document has been electronically signed by: Warner Hall MD on 05/29/2024 13:18:16
[2024-05-29] MEDS: iohexoL 350 MG/ML 100 ML INFUS..BTL 85 ML IV (09:30)
== END 2024-05-29 07:47 | disposition home or self-care (01) ==
LOC: HO.CT 07:46
PROVIDERS: PCP Internal Medicine; Visit Provider Internal Medicine
DX: C23 Malignant neoplasm of gallbladder (principal); R79.89 Other specified abnormal findings of blood chemistry
CPT/HCPCS: 74177; Q9967

== ENCOUNTER 2024-05-29 08:20 | Emergency (ER) | payer MEDICARE, MEDICAID, SELFPAY ==
--- NOTE | ~2024-05-29 | XR_ITS ---
EXAMINATION: XR CHEST CLINICAL INFORMATION: congestion in chest COMPARISON: Congestion. TECHNIQUE: 2 views of the chest were obtained. FINDINGS: No significant abnormality is noted involving the heart, lungs, mediastinum, bony thorax or soft tissues. XR/XR chest 2V IMPRESSION: Unremarkable chest examination. Electronically signed by: Derik Blum MD 05/29/2024 09:07 AM [facility] [place]
[2024-05-29 08:35] VITALS: BP 137/96; PULSE 83; RESP 18; TEMP 36.6; O2SAT 98; BMI 27.8
[2024-05-29 09:16] LABS: IDNOW Serial# 58CA691E; Strep A Nucleic Acid Negative (Negative)
[2024-05-29 09:27] LABS: Influenza A PCR NEGATIVE (Negative); Influenza B PCR NEGATIVE (Negative); Resp Syncy Virus RNA Qual PCR NEGATIVE (Negative); SARS COV2 PCR INHOUSE NEGATIVE (Negative)
--- NOTE | 2024-05-29 12:10 | ED_ITS ---
HPI - URI/Sore Throat General Chief Complaint: Upper Respiratory Symptoms Stated Complaint: Cold symptoms Time Seen by Provider: 05/29/24 12:18 Source: patient and RN notes reviewed Mode of arrival: ambulatory Limitations: no limitations History of Present Illness ED Provider: Elvia Rey PA-C HPI Narrative: This is a 49-year-old female, with a past medical history of anxiety and depress ion, who presents emergency department with complaints of congestion and productive cough x2 weeks. She has been using [id number] Debbie-Richton which has provided her without any relief. She denies any fevers, chills, chest pain, shortness of breath, abdominal pain, nausea, vomiting or diarrhea. No sick contacts. No other complaints or concerns at this time. MD elicited complaint: sore throat and nasal congestion Related Data Previous Rx's ?Medication ?Instructions ?Recorded cholecalciferol (vitamin D3) 10 10 mcg PO DAILY #90 tabs 11/12/20 mcg (400 unit) chewable tablet (Vitamin D3) mastectomy bra (bra, mastectomy) #1 ea 03/16/22 mastectomy bra #2 ea 03/24/22 mastectomy bra #6 ea 03/24/22 prosthetics #2 ea 03/27/22 sertraline 50 mg tablet 50 mg PO DAILY #30 tabs 03/31/22 gabapentin 300 mg capsule 300 mg PO TID #90 caps 11/24/22 cetirizine 10 mg capsule (All Day 10 mg PO DAILY PRN allergy 10/30/23 Allergy (cetirizine)) symptoms #30 caps azithromycin 250 mg tablet See Rx Instructions PO .COMPLEX #6 05/29/24 tabs Allergies Allergy/AdvReac Type Severity Reaction Status Date / Time diphenhydramine Allergy Intermediate RASH Verified 05/29/24 08:37 [From BENADRYL] Penicillins [PENICILLINS] Allergy Intermediate RASH Verified 05/29/24 08:37 LAUGHING GAS Allergy Intermediate RASH/HIVES/ Uncoded 03/27/24 09:49 SWELLING Review of Systems Review of Systems: Yes all other systems are reviewed and are negative Constitutional: Constitutional: Reports as per [facility] Past Medical History Medical History Anxiety and depression Gallbladder cancer, carcinoma Adhesive capsulitis of right shoulder Adhesive capsulitis of left shoulder Vitamin D deficiency Anxiety disorder [place] disease Breast cancer, BRCA1 positive Surgical History History of colonoscopy History of cholecystectomy H/O bilateral mastectomy History of hysterectomy with bilateral oophorectomy Family History Family History Father Prostate cancer Paternal Aunt Breast cancer Maternal Grandmother Alzheimer's dementia Mother Endometrial cancer Son No problems noted. Social History Social History Household Members: None Housing: Apartment Are you a primary healthcare consultant to a significant other at home: No Do you presently have visiting nurse or other home services: No Alcohol intake: never Patient Tobacco Use Status: Never used Tobacco e-Cigarette/Vaping Use: Never Used service: No Current occupational status: unemployed Gender identity: Female Cognitive needs: No Hearing needs: No Vision needs: No Physical Exam Vital Signs: Vital Signs: Last Vital Signs Temp 97.9 F 05/29/24 12:57 Pulse 83 05/29/24 12:57 Resp 18 05/29/24 12:57 BP 137/96 H 05/29/24 12:57 Pulse Ox 98 05/29/24 12:57 O2 Del Method Room Air 05/29/24 12:57 BMI result Body Mass Index 27.8 Const: General: cooperative, comfortable and no acute distress Orientation/consciousness: patient oriented x3 Limitations: no limitations HEENT: Head: Yes normal to inspection, Yes normocephalic and Yes atraumatic Ears: hearing grossly normal bilaterally General nose exam: Normal external nose present Face and sinus: Yes normal facial exam Mouth: Normal oral and palatal mucosa present, oropharynx normal and moist mucous membranes Throat: Yes posterior oropharynx normal Eyes: General: appearance normal, both eyes and all related structures Eyelids: Yes eyelids normal Conjunctivae: conjunctivae normal Sclerae: sclerae normal Pupils: Equal, round and reactive pupils present EOM: EOMs intact bilaterally Neck: Neck: Yes normal visual inspection, Yes full ROM and Yes no lymphadenopathy Lymphatic: no lymphadenopathy noted Chest: Chest palpation & inspection: normal inspection of the chest Resp: Effort & Inspection: normal respiratory effort and able to speak in complete sentences Auscultation: clear to auscultation bilaterally, no crackles, no rales, no rhonchi and no wheezes Cardio: Rate: regular rate Rhythm: regular rhythm Heart sounds: S1 normal heart sound present and S2 normal heart sound present GI: Inspection: Yes normal to inspection Skin: General skin exam: no rashes or lesions noted Trauma: no lacerations or abrasions Wounds: no wounds Neuro: General: patient oriented x3 and moves all extremities Cranial nerves: Yes Equal, round and reactive pupils present Extrem: General: Yes normal to inspection Right upper extremity: normal to inspection Left upper extremity: normal to inspection Right lower extremity: normal to inspection Left lower extremity: normal to inspection Medical Decision Making Medical Decision Making [facility] Narrative: 49 y/o F who presents to the ER with complaints of cold like symptoms for >10 days. On arrival, Vital signs WNL. She is speaking in full sentences under no acute distress. Swabs obtained and are negative. CXR unremarkable. Discussed with patient that her symptoms are viral but given duation of sxs will treat with course of azithromycin. Given return precautions. Stable for d.c. Differential Diagnosis Differential Diagnoses: The differential diagnosis associated with the prese ntation includes URI, bronchitis, pneumonia, flu Lab Data [facility] Lab Attestation statement: I reviewed the patient's lab results. negative Labs: Lab Results 05/29/24 Range/Units 08:43 Influenza Type A (PCR) NEGATIVE (Negative) Influenza Type B (PCR) NEGATIVE (Negative) RSV RNA Qual (PCR) NEGATIVE (Negative) SARS-CoV-2 RNA (RT-PCR) NEGATIVE (Negative) S. pyogenes GrpA MARY Negative (Negative) Radiology Impression Discussion of test interpretation with radiology: I have reviewed the radiologist's reading. Radiologist Impression: [address] [address] XRay Report Signed Patient: Lisandra Sykes MR#: [id number] : 1975 Acct:[id number] Age/Sex: 49 / F ADM Date: 05/29/24 Loc: .ED Attending Dr: Ordering Physician: Generic ED Physician Date of Service: 05/29/24 Procedure(s): XR chest 2V Accession Number(s): [id number] cc: America Stack MD; Generic ED Physician~ EXAMINATION: XR CHEST CLINICAL INFORMATION: congestion in chest COMPARISON: Congestion. TECHNIQUE: 2 views of the chest were obtained. FINDINGS: No significant abnormality is noted involving the heart, lungs, mediastinum, bony thorax or soft tissues. XR/XR chest 2V IMPRESSION: Unremarkable chest examination. Electronically signed by: Derik Blum MD 05/29/2024 09:07 AM EST Dictated By: Derik Blum MD External Record Review External record reviewed: Inpatient record, Office record, Outpatient record, Prior outpatient labs, Prior outpatient radiology, Primary care record and Outside ED record Discharge Plan Discharge Clinical Impression: Acute upper respiratory infection Patient Disposition: Home, Self-Care Instructions: Upper Respiratory Infection (ED) Additional Instructions: You were seen in the emergency department due to upper respiratory infection. Because you have been sick for nearly 2 weeks, we are treating you with a course of antibiotics. Please take prescribed medication as directed, finish the entire course even if your symptoms improve. Drink plenty of fluids get plenty of rest. Alternate between ibuprofen and or Tylenol as needed for pain and fevers. Your chest x-ray does not show a pneumonia. You tested negative for flu, COVID, RSV, and strep throat today. Follow-up with your primary care physician regarding this visit. If any new or worsening symptoms occur including but not limited to chest pain or shortness for breath, please seek emergent care. Prescriptions: New azithromycin 250 mg tablet See Rx Instructions .ROUTE .COMPLEX Qty: 6 0RF Rx Instructions: For 250 mg dose pack: take 500 mg today (day 1), then 250 mg for 4 days (days 2-5) No Action cholecalciferol (vitamin D3) [Vitamin D3] 10 mcg (400 unit) Tablet,Chewable 10 mcg PO DAILY Qty: 90 4RF (DME) bra, mastectomy Crystals Qty: 1 0RF Rx Instructions: As Directed (DME) mastectomy bra Crystals Qty: 6 0RF Rx Instructions: As Directed (DME) mastectomy bra Crystals Qty: 2 0RF Rx Instructions: As Directed (DME) prosthetics Kit Qty: 2 0RF Rx Instructions: As Directed sertraline 50 mg tablet 50 mg PO DAILY Qty: 30 2RF Rx Instructions: take 25 mg (0.5 tab) once a day for the 1st week , then increase to 50 mg once a day afterwards gabapentin 300 mg capsule 300 mg PO TID Qty: 90 0RF All Day Allergy (cetirizine) 10 mg capsule 10 mg PO DAILY PRN (Reason: allergy symptoms) Qty: 30 0RF Interventions: ED Discharge Assessment Last Done: 05/29/24 12:57 Discharge Date/Time: 05/29/24 12:58 Print Language: Romansh
[2024-05-29 12:57] VITALS: BP 137/96; PULSE 83; RESP 18; TEMP 36.6; O2SAT 98
== END 2024-05-29 12:58 | disposition home or self-care (01) ==
PROVIDERS: Emergency Provider Emergency Medicine Emergency Medical Services; PCP Internal Medicine
DX: J06.9 Acute upper respiratory infection, unspecified (principal); R05.9 Cough, unspecified; R09.89 Other specified symptoms and signs involving the circulatory and respiratory systems
CPT/HCPCS: 0241U; 71046; 74177; 87651; 99282; 99284; Q9967

== ENCOUNTER → 2024-05-29 08:39 | Outpatient (BNV) | payer MEDICARE, MEDICAID, SELFPAY | PROVIDERS: PCP Internal Medicine; Visit Provider Radiology Diagnostic Radiology | DX: R09.89 Other specified symptoms and signs involving the circulatory and respiratory systems (principal); Z90.49 Acquired absence of other specified parts of digestive tract; K56.600 Partial intestinal obstruction, unspecified as to cause | CPT/HCPCS: 71046 ==

== ENCOUNTER 2024-06-01 11:45 | Emergency (ER) | payer MEDICARE, MEDICAID, SELFPAY ==
--- NOTE | ~2024-06-01 | CT_ITS ---
EXAMINATION: CT ABDOMEN AND PELVIS WITH CONTRAST CLINICAL INFORMATION: Abdominal pain, nausea and vomiting. History of gallbladder cancer. COMPARISON: None available. TECHNIQUE: Multidetector volumetric images were obtained from the superior aspect of the liver through the pubic symphysis following administration 85 mL of Omnipaque 350 intravenous contrast. Sagittal and coronal reformatted images were obtained on the technologist's workstation. Oral contrast: No This CT examination was performed using dose optimization techniques as appropriate, variously including the following: *Automated exposure control *Adjustment of mA and/or kV according to patient size (this includes techniques or standardized protocols for targeted exams where dose is matched to indication/reason for exam; i.e. extremities or head) *Use of iterative reconstruction technique DLP: 66. FINDINGS: LUNG BASES: The lung bases are clear. The heart size is normal. LIVER, GALLBLADDER, AND BILIARY TREE: The liver is normal in size, shape, and attenuation. No focal hepatic lesion or biliary ductal dilatation is present. The gallbladder has been surgically removed. PANCREAS: Unremarkable. SPLEEN: Unremarkable. ADRENAL GLANDS: Unremarkable. KIDNEYS AND URETERS: The kidneys are normal in size, shape, and attenuation. No hydronephrosis, hydroureter, or calculi seen. No perinephric stranding. BLADDER: The bladder is nondistended and appears unremarkable. GASTROINTESTINAL TRACT: The proximal small bowel including jejunum loops is dilated with air-fluid levels. There are several segments of mural thickening for example coronal image 31/6 coronal image 35/6. A large segment of small bowel distention with fecal residue appearance visualized in the left midabdomen on axial image 46/2 to 60/2. There are abnormal mesenteric lymph nodes largest lymph node measuring 1.7 cm axial image 48/2. The ileal loops and the colon appears unremarkable. No free air seen. The stomach is distended. Appendix is normal caliber There is minimal free fluid in the pelvis. ABDOMINAL WALL: No significant hernia is appreciated. LYMPH NODES: Normal. VASCULAR: Unremarkable. PELVIC VISCERA: The uterus is anteverted and appears unremarkable. OSSEOUS STRUCTURES: No aggressive lytic or sclerotic process seen. There is mild ventral spondylosis L3-[address]/CT abdomen pelvis w IV con IMPRESSION: Segmental mural thickening involving jejunal loops with small bowel distention with fecal residue like appearance and some of the segments. There is abnormal lymph nodes. The findings are suggestive of small bowel enteritis with inflammatory or infectious lymphadenopathy. There is minimal free fluid in the pelvis from iatrogenic. No free air. Fleischner guidelines were followed. Electronically signed by: Derik Blum MD 06/01/2024 04:51 PM [facility]ARTINE[facility] ROBLES
--- NOTE | 2024-06-01 12:22 | ED.GENADULT ---
HPI - General Adult General Chief complaint: Abdominal Pain Stated complaint: stomach pain Time Seen by Provider: 06/01/24 12:38 Source: patient, RN notes reviewed and old records reviewed History of Present Illness ED Provider: Celina Berry PA-C HPI narrative: 49-year-old female with a past medical history anxiety, depression, gallbladder CA, anxiety, GERD avoids disease, breast CA, presenting to ED complaining of diffuse abdominal pain, nausea, and vomiting x last night. The patient was evaluated in our ED on 05/29 diagnosed with URI symptoms, had outpatient abdominal CT on same day ordered by Oncology for gallbladder CA monitoring which showed concern of obstructing small bowel lesion. Patient denies fever, chills, diarrhea/constipation, dysuria/hematuria. Last BM this morning and normal per patient. Related Data Previous Rx's ?Medication ?Instructions ?Recorded cholecalciferol (vitamin D3) 10 10 mcg PO DAILY #90 tabs 11/12/20 mcg (400 unit) chewable tablet (Vitamin D3) mastectomy bra (bra, mastectomy) #1 ea 03/16/22 mastectomy bra #2 ea 03/24/22 mastectomy bra #6 ea 03/24/22 prosthetics #2 ea 03/27/22 sertraline 50 mg tablet 50 mg PO DAILY #30 tabs 03/31/22 gabapentin 300 mg capsule 300 mg PO TID #90 caps 11/24/22 cetirizine 10 mg capsule (All Day 10 mg PO DAILY PRN allergy 10/30/23 Allergy (cetirizine)) symptoms #30 caps azithromycin 250 mg tablet See Rx Instructions PO .COMPLEX #6 05/29/24 tabs ondansetron 4 mg disintegrating 4 mg PO Q8H PRN nausea and 06/01/24 tablet vomiting #10 tabs Allergies Allergy/AdvReac Type Severity Reaction Status Date / Time diphenhydramine Allergy Intermediate RASH Verified 06/01/24 12:23 [From BENADRYL] Penicillins [PENICILLINS] Allergy Intermediate RASH Verified 06/01/24 12:23 LAUGHING GAS Allergy Intermediate RASH/HIVES/ Uncoded 03/27/24 09:49 SWELLING Review of Systems Review of Systems: Yes all other systems are reviewed and are negative Constitutional: Constitutional: Reports as per [facility] Past Medical History Attestation statement: The following information was validated with the patient. Source: old records reviewed Medical History Anxiety and depression Gallbladder cancer, carcinoma Adhesive capsulitis of right shoulder Adhesive capsulitis of left shoulder Vitamin D deficiency Anxiety disorder Ovid disease Breast cancer, BRCA1 positive Surgical History History of colonoscopy History of cholecystectomy H/O bilateral mastectomy History of hysterectomy with bilateral oophorectomy Family History Family History Father Prostate cancer Paternal Aunt Breast cancer Maternal Grandmother Alzheimer's dementia Mother Endometrial cancer Son No problems noted. Social History Social History Household Members: None Housing: Apartment Are you a primary neonatal intensive care unit nurse to a significant other at home: No Do you presently have visiting nurse or other home services: No Alcohol intake: never Patient Tobacco Use Status: Never used Tobacco e-Cigarette/Vaping Use: Never Used service: No Current occupational status: unemployed Gender identity: Female Cognitive needs: No Hearing needs: No Vision needs: No Physical Exam ED Vital Signs: Vital Signs - 24 hr 06/01/24 12:23 06/01/24 13:07 06/01/24 18:07 Temperature 97.3 F 98.5 F Pulse Rate 84 67 Respiratory Rate 18 20 18 Blood Pressure 167/94 H 140/80 H Pulse Oximetry 100 97 Oxygen Delivery Method Room Air Room Air 06/01/24 19:45 Temperature 98.5 F Pulse Rate 67 Respiratory Rate 18 Blood Pressure 140/80 H Pulse Oximetry 97 Oxygen Delivery Method Room Air BMI result Body Mass Index 26.6 Const General: cooperative, healthy appearing and no acute distress Orientation/consciousness: patient oriented x3 Limitations: no limitations HENMT Head: Yes normal to inspection and Yes atraumatic Ears: hearing grossly normal bilaterally General nose exam: Normal external nose present Face and sinus: Yes normal facial exam Eyes General: appearance normal, both eyes and all related structures EOM: EOMs intact bilaterally Neck Neck: Yes normal visual inspection and Yes no meningeal signs Resp Effort & Inspection: normal respiratory effort and no respiratory distress Auscultation: clear to auscultation bilaterally Cardio Rate: regular rate Heart sounds: S1 normal heart sound present and S2 normal heart sound present GI Inspection: Yes normal to inspection Palpation (GI): Soft to palpation, Tenderness to palpation present (GI) (Diffusely) with no rebound tenderness, no guarding and not rigid General: Yes no CVA tenderness Back/Spine/Pelvis Back: no CVA tenderness Skin Rashes: no rashes Wounds: no wounds Neuro General: patient oriented x3, tone normal and no meningeal signs Cranial nerves: Yes CN's II-XII intact bilaterally Gait exam (Neuro): Normal gait present Extrem General: Yes normal to inspection Course Course Course Narrative: RME, this is a rapid medical exam performed by Uriel Peralta please refer to primary provider for complete H&P- 49-year-old female that is followed by Dr. Sosa for breast cancer presents for evaluation of abdominal pain and vomiting. She had an outpatient abdominal CT scan 3 days ago that showed concerning for an obstructing small-bowel lesion. She was seen in the ER that day but for an upper respiratory infection. She reports severe abdominal pain and vomiting since yesterday. Plan for labs, we will defer further imaging to ER provider, -1731--labs reassuring. Bilirubin chronically elevated. AST/ALT chronically elevated. -viral testing negative CT abdomen pelvis w IV con IMPRESSION: Segmental mural thickening involving jejunal loops with small bowel distention with fecal residue like appearance and some of the segments. There is abnormal lymph nodes. The findings are suggestive of small bowel enteritis with inflammatory or infectious lymphadenopathy. There is minimal free fluid in the pelvis from iatrogenic. No free air. Fleischner guidelines were followed. > CT results discussed with patient, no evidence of SBO, this is nonsurgical at this time. Supportive treatment. > Reports continued abdominal discomfort and nausea. Will give IV Toradol/Reglan and re-evaluate/p.o. challenge. >193--re-evaluation patient reports symptomatic improvement. Resting comfortably. Tolerated p.o. without nausea or vomiting or pain. Feels comfortable for discharge home at this time Results discussed with patient including worrisome signs and symptoms and strict return precautions, and when to return to the emergency department. They verbalized understanding and feel safe for discharge at this time. Medications Administered Discontinued Medications Generic Name Dose Route Start Last Admin Trade Name Freq PRN Reason Stop Dose Admin Diatrizoate Meglum/Diatrizoate Sod 30 ml 06/01/24 16:18 06/01/24 16:18 Diatrizoate Meglumine, Sodium 30 Ml Solution PO 06/01/24 16:19 30 ml ONCE ONE Administration Sodium Chloride 1,000 mls @ 999 mls/hr 06/01/24 13:00 06/01/24 14:51 Ns IV 06/01/24 14:00 Infused .Q1H1M TREVON Infusion Iohexol 100 ml 06/01/24 16:17 06/01/24 16:18 Iohexol 350 Mg/Ml 100 Ml Infus..Btl IV 06/01/24 16:18 85 ml ONCE ONE Administration Ketorolac Tromethamine 15 mg 06/01/24 17:37 06/01/24 18:06 Ketorolac Tromethamine 15 Mg/Ml Vial IVPUSH 06/01/24 17:38 15 mg ONCE ONE Administration Metoclopramide HCl 10 mg 06/01/24 17:37 06/01/24 18:06 Metoclopramide Hcl 10 Mg/2 Ml Vial IVPUSH 06/01/24 17:38 10 mg ONCE ONE Administration Morphine Sulfate 2 mg 06/01/24 12:52 06/01/24 13:07 Morphine Sulfate 2 Mg/Ml Cartridge IVPUSH 06/01/24 12:53 2 mg ONCE ONE Administration Protocol Ondansetron HCl 4 mg 06/01/24 12:52 06/01/24 13:07 Ondansetron Hcl 4 Mg/2 Ml Vial IVPUSH 06/01/24 12:53 4 mg ONCE ONE Administration Medical Decision Making Medical Decision Making MDM Narrative: 49-year-old female with a past medical history anxiety, depression, gallbladder CA, anxiety, GERD avoids disease, breast CA, presenting to ED complaining of diffuse abdominal pain, nausea, and vomiting x last night. On exam vital signs stable, NAD, nontoxic appearing, abdomen soft diffusely tender, no rebound or guarding. CT from 05/29/2024 showing concern of obstructing small bowel lesion. Concern for SBO. Rule out appendicitis/diverticulitis vs colitis vs gallbladder disease. Low suspicion for severe sepsis at this time Plan: Labs, UA, repeat CT with p.o. and IV contrast, pain control Please refer to course for remaining clinical decision making, interpretation of labs/imaging results, and discussions with consultants and/or family members. Differential Diagnosis Differential Diagnoses: The differential diagnosis associated with the presentation includes As above Admission/Observation Consideration of admission/observation: Escalation of care including admission/observation considered Consult Healthcare Provider Management of the patient was discussed with: Chief Of Anesthesiology Lab Data MDM Lab Attestation statement: I reviewed the patient's lab results. 06/01/24 13:02 06/01/24 13:02 Labs: Lab Results 06/01/24 06/01/24 Range/Units 13:02 13:06 WBC 8.0 (4.8-10.8) X10*3/uL RBC 5.37 (4.20-5.50) X10*6/uL Hgb 13.3 (12.0-16.0) g/dl Hct 42.1 (37.0-47.0) % MCV 78.4 L (80.0-98.0) fL MCH 24.8 L (27.0-33.0) pg MCHC 31.6 (31.0-35.0) g/dl RDW 14.0 (11.0-16.0) % Plt Count 378 (160-400) X10*3/uL MPV 7.8 L (9.4-12.3) fL Immature Gran % (Auto) 0.5 H (0.0-0.4) % Neut % (Auto) 82.0 H (45-73) % Lymph % (Auto) 12.8 L (20-40) % Canadian % (Auto) 4.4 (2-11) % Eos % (Auto) 0.0 (0-4) % Baso % (Auto) 0.3 (0-2) % Lymph # (Auto) 1.0 L (1.2-4.9) X10*3/uL Canadian # (Auto) 0.4 (0.1-1.2) X10*3/uL Eos # (Auto) 0.0 (0.0-0.4) X10*3/uL Baso # (Auto) 0.0 (0.0-0.2) X10*3/uL Abs Immat Gran (auto) 0.04 H (0.00-0.03) X10*3/uL Absolute Neuts (auto) 6.5 (2.0-8.3) x10*3/uL Absolute Nucleated RBC 0.000 (0.0-0.012) X10*3/uL Nucleated RBC % (auto) 0.0 (0.0-0.2) /100WBC PT 11.9 (10.9-12.4) SEC INR 1.0 (0.9-1.1) Sodium 142 (135-145) mmol/L Potassium 3.9 (3.3-5.1) mmol/L Chloride 107 (96-108) mmol/L Carbon Dioxide 28 (22-29) mmol/L Anion Gap 11 L (12-20) BUN 12 (9-16) mg/dL Creatinine 0.78 (0.5-1.4) mg/dL Estim Creat Clear Calc 92.3 Estimated GFR > 60 Random Glucose 138 H (60-115) mg/dL Lactic Acid 1.0 (0.5-2.0) mmol/L Calcium 9.7 D (8.4-10.2) mg/dL Magnesium 2.1 (1.6-2.6) mg/dL Total Bilirubin 3.3 H (0.0-1.0) mg/dL AST 35 H (5-31) U/L ALT 36 H (0-31) U/L Alkaline Phosphatase 111 (39-117) U/L Total Protein 8.0 (6.5-8.0) g/dL Albumin 4.4 (3.5-5.0) g/dL Lipase 13 (8-78) U/L Influenza Type A (PCR) NEGATIVE (Negative) Influenza Type B (PCR) NEGATIVE (Negative) RSV RNA Qual (PCR) NEGATIVE (Negative) SARS-CoV-2 RNA (RT-PCR) NEGATIVE (Negative) Independent Interpretation I performed an independent interpretation of an: CT Scan Radiology Impression Discussion of test interpretation with radiology: I have reviewed the radiologist's reading. External Record Review External record reviewed: Inpatient record, Office record, Outpatient record, Prior outpatient labs, Prior outpatient radiology, Primary care record and Outside ED record Tests considered The following testing was considered but not selected: As above Prescription Management I considered prescription management with: Pain Medication and Other Chronic Conditions Patient?s care impacted by: Cancer and Other Social Determinants Patient?s care significantly limited by Social Determinants of Health including: Other Social Determinant of Health Discharge Plan Discharge Clinical Impression: Enteritis Patient Disposition: Home, Self-Care Instructions: Enteritis (ED) Additional Instructions: Your blood work is reassuring Your CT scan is suggestive of small bowel enteritis Zofran as an antinausea medication, take as needed for nausea and vomiting Please follow-up with your primary care doctor If symptoms persist or worsen/pain becomes unbearable, you have persistent nausea, vomiting, diarrhea, you are unable to eat or drink return to the ED Prescriptions: New ondansetron 4 mg tablet,disintegrating 4 mg PO Q8H PRN (Reason: nausea and vomiting) Qty: 10 0RF No Action cholecalciferol (vitamin D3) [Vitamin D3] 10 mcg (400 unit) Tablet,Chewable 10 mcg PO DAILY Qty: 90 4RF (DME) bra, mastectomy Crystals Qty: 1 0RF Rx Instructions: As Directed (DME) mastectomy bra Crystals Qty: 6 0RF Rx Instructions: As Directed (DME) mastectomy bra Crystals Qty: 2 0RF Rx Instructions: As Directed (DME) prosthetics Kit Qty: 2 0RF Rx Instructions: As Directed azithromycin 250 mg tablet See Rx Instructions .ROUTE .COMPLEX Qty: 6 0RF Rx Instructions: For 250 mg dose pack: take 500 mg today (day 1), then 250 mg for 4 days (days 2-5) sertraline 50 mg tablet 50 mg PO DAILY Qty: 30 2RF Rx Instructions: take 25 mg (0.5 tab) once a day for the 1st week , then increase to 50 mg once a day afterwards gabapentin 300 mg capsule 300 mg PO TID Qty: 90 0RF All Day Allergy (cetirizine) 10 mg capsule 10 mg PO DAILY PRN (Reason: allergy symptoms) Qty: 30 0RF Referrals: America Stack MD [Primary Care Provider] - 3 days Interventions: ED Discharge Assessment Last Done: 06/01/24 19:45 Discharge Date/Time: 06/01/24 19:46 Print Language: Georgian
[2024-06-01 12:23] VITALS: BP 167/94; PULSE 84; RESP 18; TEMP 36.3; O2SAT 100; BMI 26.6
--- NOTE | 2024-06-01 12:24 | ECG_ITS ---
Test Reason : PAIN Blood Pressure : */* mmHG Vent. Rate : 57 BPM Atrial Rate : 57 BPM P-R Int : 144 ms QRS Dur : 74 ms QT Int : 458 ms P-R-T Axes : 46 47 17 degrees QTcB Int : 445 ms Sinus bradycardia Otherwise normal ECG No previous ECGs available Referred By: Jonathan Peralta Electronically Signed By: ANTONIO NIETO MD
[2024-06-01] MEDS: 0.9 % Sodium Chloride 1,000 ML 999 ML IV (13:06)
[2024-06-01 13:07] VITALS: RESP 20
[2024-06-01] MEDS: ondansetron HCL 4 MG/2 ML VIAL IVPUSH (13:07)
[2024-06-01] MEDS: Morphine Sulfate 2 MG/ML CARTRIDGE IVPUSH (13:07)
[2024-06-01 13:09] LABS: Basophils Percent Auto 0.3 % (0-2); Hematocrit 42.1 % (37.0-47.0); Hemoglobin 13.3 g/dl (12.0-16.0); Imm Gran Abs Auto 0.04 X10*3/uL (0.00-0.03); Imm Gran Pct Auto 0.5 % (0.0-0.4); Lymphocytes Percent Auto 12.8 % (20-40); MANUAL DIFF FLAG NO; Mean Corpuscular HGB Conc 31.6 g/dl (31.0-35.0); Mean Corpuscular Hemoglobin 24.8 pg (27.0-33.0); Mean Corpuscular Volume 78.4 fL (80.0-98.0); Mean Platelet Volume 7.8 fL (9.4-12.3); Monocytes Absolute Auto 0.4 X10*3/uL (0.1-1.2); Monocytes Percent Auto 4.4 % (2-11); Neutrophils Absolute Auto 6.5 x10*3/uL (2.0-8.3); Platelet Count 378 X10*3/uL (160-400); Red Blood Count 5.37 X10*6/uL (4.20-5.50)
[2024-06-01 13:17] LABS: Prothrombin Time 11.9 SEC (10.9-12.4)
[2024-06-01 13:28] LABS: Magnesium 2.1 mg/dL (1.6-2.6)
[2024-06-01 13:32] LABS: Alanine Aminotransferase 36 U/L (0-31); Albumin Level 4.4 g/dL (3.5-5.0); Alkaline Phosphatase 111 U/L (39-117); Anion Gap 11 (12-20); Aspartate Amino Transferase 35 U/L (5-31); Bilirubin Total 3.3 mg/dL (0.0-1.0); Blood Urea Nitrogen 12 mg/dL (9-16); Calcium 9.7 mg/dL (8.4-10.2); Carbon Dioxide 28 mmol/L (22-29); Chloride 107 mmol/L (96-108); Creatinine Clr Calc Pharmacy 92.3; Estimated Glomerular Filt Rate > 60; Glucose Random 138 mg/dL (60-115); Lipase 13 U/L (8-78); Potassium 3.9 mmol/L (3.3-5.1); Sodium 142 mmol/L (135-145)
[2024-06-01 14:14] LABS: Influenza A PCR NEGATIVE (Negative); Influenza B PCR NEGATIVE (Negative); Resp Syncy Virus RNA Qual PCR NEGATIVE (Negative); SARS COV2 PCR INHOUSE NEGATIVE (Negative)
[2024-06-01] MEDS: Diatrizoate Meglumine, Sodium 30 ML SOLUTION PO (16:18)
[2024-06-01] MEDS: iohexoL 350 MG/ML 100 ML INFUS..BTL IV (16:18)
[2024-06-01] MEDS: Ketorolac Tromethamine 15 MG/ML VIAL IVPUSH (18:06)
[2024-06-01] MEDS: Metoclopramide HCl 10 MG/2 ML VIAL IVPUSH (18:06)
[2024-06-01 18:07] VITALS: BP 140/80; PULSE 67; RESP 18; TEMP 36.9; O2SAT 97
--- NOTE | 2024-06-01 18:20 | PC.NURSE ---
Pt reported she tried to get urine sample but was unable, said she will try again when she has to urinate
[2024-06-01 19:45] VITALS: BP 140/80; PULSE 67; RESP 18; TEMP 36.9; O2SAT 97
== END 2024-06-01 19:46 | disposition home or self-care (01) ==
PROVIDERS: Physician Assistant; Emergency Provider Emergency Medicine; PCP Internal Medicine
DX: K52.9 Noninfective gastroenteritis and colitis, unspecified (principal); R10.9 Unspecified abdominal pain; R11.2 Nausea with vomiting, unspecified; Z85.3 Personal history of malignant neoplasm of breast; Z85.89 Personal history of malignant neoplasm of other organs and systems; Z03.818 Encounter for observation for suspected exposure to other biological agents ruled out
CPT/HCPCS: 0241U; 36415; 74177; 80053; 83605; 83690; 83735; 85025; 85610; 93005; 96361; 96374; 96375; 99285; J1885; J2270; J2405; J2765; Q9967

== ENCOUNTER → 2024-06-01 12:24 | Outpatient (BNV) | payer MEDICARE, MEDICAID, SELFPAY | PROVIDERS: Emergency Provider Emergency Medicine; PCP Internal Medicine; Visit Provider Internal Medicine Cardiovascular Disease | DX: R00.1 Bradycardia, unspecified (principal) | CPT/HCPCS: 93010 ==

== ENCOUNTER → 2024-06-01 12:45 | Outpatient (BNV) | payer MEDICARE, MEDICAID, SELFPAY | PROVIDERS: Emergency Provider Emergency Medicine; PCP Internal Medicine; Visit Provider Radiology Diagnostic Radiology | DX: K56.690 Other partial intestinal obstruction (principal) | CPT/HCPCS: 74177 ==

== ENCOUNTER 2024-07-07 20:21 | Emergency (ER) | payer MEDICARE, MEDICAID, SELFPAY ==
--- NOTE | ~2024-07-07 | CT_ITS ---
CLINICAL HISTORY: R neck pain CT cervical spine without contrast Comparison: None Findings: Vertebral alignment is within normal limits. No significant degenerative change. No acute fractures or dislocations. No acute findings on limited view of the intracranial contents. Soft tissues of the neck are normal. No consolidation or effusion at the lung apices. IMPRESSION: No acute findings. This document has been electronically signed by: Warner Corona MD on 07/07/2024 21:27:06
--- NOTE | ~2024-07-07 | XR_ITS ---
CLINICAL HISTORY: R shoulder pain s p fall 3 view right shoulder Comparison: None Findings: Bones intact. No dislocations. No significant loss of joint space or osteophytes. No erosions. No radiopaque foreign body. IMPRESSION: 1. No acute findings This document has been electronically signed by: Warner Corona MD on 07/07/2024 20:56:43
[2024-07-07 20:27] VITALS: BP 130/78; PULSE 70; RESP 17; TEMP 36.2; O2SAT 98; BMI 24.2
--- NOTE | 2024-07-07 20:27 | ED.FALL ---
HPI - Fall General Chief Complaint: Fall Stated Complaint: Fall on R side Time Seen by Provider: 07/08/24 00:08 Source: patient Limitations: no limitations History of Present Illness ED Provider: Lucille Ludwig PA-C HPI Narrative: 49-year-old female with a history of anxiety, depression, chronic pain, breast cancer presenting to the ED c/o R sided neck pain radiating to R shoulder s/p mechanical trip and fall on ice 1 week ago. States fell onto right side. Denies LOC or anticoagulation use. Admits did have head strike, however denies headache at present, nausea or vomiting. Reports decreased ROM to shoulder secondary to pain. Related Data Previous Rx's ?Medication ?Instructions ?Recorded cholecalciferol (vitamin D3) 10 10 mcg PO DAILY #90 tabs 11/12/20 mcg (400 unit) chewable tablet (Vitamin D3) mastectomy bra (bra, mastectomy) #1 ea 03/16/22 mastectomy bra #2 ea 03/24/22 mastectomy bra #6 ea 03/24/22 prosthetics #2 ea 03/27/22 sertraline 50 mg tablet 50 mg PO DAILY #30 tabs 03/31/22 gabapentin 300 mg capsule 300 mg PO TID #90 caps 11/24/22 cetirizine 10 mg capsule (All Day 10 mg PO DAILY PRN allergy 10/30/23 Allergy (cetirizine)) symptoms #30 caps azithromycin 250 mg tablet See Rx Instructions PO .COMPLEX #6 05/29/24 tabs ondansetron 4 mg disintegrating 4 mg PO Q8H PRN nausea and 06/01/24 tablet vomiting #10 tabs ibuprofen 600 mg tablet 600 mg PO Q6H PRN pain #20 tabs 07/08/24 methocarbamol 750 mg tablet 750 mg PO Q8H PRN pain #10 tabs 07/08/24 Allergies Allergy/AdvReac Type Severity Reaction Status Date / Time diphenhydramine Allergy Intermediate RASH Verified 07/07/24 20:29 [From BENADRYL] Penicillins [PENICILLINS] Allergy Intermediate RASH Verified 07/07/24 20:29 LAUGHING GAS Allergy Intermediate RASH/HIVES/ Uncoded 07/07/24 20:29 SWELLING Review of Systems Review of Systems: Yes all other systems are reviewed and are negative Constitutional: Constitutional: Denies fatigue and Denies fever(s) ENT: Reports neck pain Cardiovascular: Cardiovascular: Denies chest pain Gastrointestinal: Gastrointestinal: Denies abdominal pain, Denies nausea and Denies vomiting Musculoskeletal: Musculoskeletal: Denies deformity, Reports arthralgias, Reports joint swelling, Reports neck pain, Denies numbness, Reports radiating pain into limb and Denies tingling Neurologic: Denies numbness and Denies tingling Endocrine: Endocrine: Denies fatigue PMFSH Past Medical History Attestation statement: The following information was validated with the patient. Medical History Anxiety and depression Gallbladder cancer, carcinoma Adhesive capsulitis of right shoulder Adhesive capsulitis of left shoulder Vitamin D deficiency Anxiety disorder [place] disease Breast cancer, BRCA1 positive Surgical History History of colonoscopy History of cholecystectomy H/O bilateral mastectomy History of hysterectomy with bilateral oophorectomy Family History Family History Father Prostate cancer Paternal Aunt Breast cancer Maternal Grandmother Alzheimer's dementia Mother Endometrial cancer Son No problems noted. Social History Social History Household Members: None Housing: Apartment Are you a primary restorative care technician to a significant other at home: No Do you presently have visiting nurse or other home services: No Alcohol intake: never Patient Tobacco Use Status: Never used Tobacco e-Cigarette/Vaping Use: Never Used Advance Directives: No Advance Directives Information Provided: Yes Do you have a plan to hurt others: No Plan service: No Current occupational status: unemployed Gender identity: Female Cognitive needs: No Hearing needs: No Vision needs: No Physical Exam Vital Signs: Vital Signs: Last Vital Signs Temp 97.1 F 07/07/24 20:27 Pulse 70 07/07/24 20:27 Resp 17 07/07/24 20:27 BP 130/78 07/07/24 20:27 Pulse Ox 98 07/07/24 20:27 O2 Del Method Room Air 07/07/24 20:27 BMI result Body Mass Index 24.2 Const: Other: Alert well-appearing Neck: Other: Full range of motion Resp: Effort & Inspection: normal respiratory effort Cardio: Other: Normal peripheral perfusion Skin: Other: Warm dry no rash Extrem: Other: Patient able to range the arm, limited with some movements Psych: Other: Cooperative Course Course Course Narrative: This is a Rapid Medical Exam performed in triage by Celina Berry PA-C. Full HPI, ROS and PE to be performed by primary ED provider. 49yo F w/pmhx anxiety, depression, chronic pain, breast cancerpresenting to the ED c/o R sided neck pain radiating to R shoulder s/p mechanical trip and fall on ice 1 week ago. States fell onto right side. Denies LOC or anticoagulation use. Admits did have head strike, however denies headache at present, nausea or vomiting. Reports decreased ROM to shoulder secondary to pain PE: no midline spinous tenderness. Right-sided cervical paraspinal tenderness and right shoulder tenderness. Limited ROM to right shoulder Plan: cervical spine CT, shoulder x-ray Medical Decision Making Medical Decision Making MDM Narrative: 49-year-old female with a history of anxiety, depression, chronic pain, breast cancer presenting to the ED c/o R sided neck pain radiating to R shoulder s/p mechanical trip and fall on ice 1 week ago. States fell onto right side. Denies LOC or anticoagulation use. Admits did have head strike, however denies headache at present, nausea or vomiting. Reports decreased ROM to shoulder secondary to pain. Problem: Chronic pain History: Per patient I have considered the following differential diagnoses: Fracture, dislocation, sprain, cervical radiculopathy Plan: Imaging of the shoulder and neck were obtained everything is negative. She has musculoskeletal strain. She is also not having radicular symptoms. We will send with a muscle relaxant and an anti-inflammatory. I have independently reviewed the following tests: X-ray right shoulder:Findings: Bones intact. No dislocations. No significant loss of joint space or osteophytes. No erosions. No radiopaque foreign body. IMPRESSION: 1. No acute findings CT cervical spine:Findings: Vertebral alignment is within normal limits. No significant degenerative change. No acute fractures or dislocations. No acute findings on limited view of the intracranial contents. Soft tissues of the neck are normal. No consolidation or effusion at the lung apices. IMPRESSION: No acute findings. Discharge Plan Discharge Clinical Impression: Neck muscle strain, Contusion of right shoulder Patient Disposition: Home, Self-Care Instructions: Cervical Strain (ED), Contusion in Adults (ED) Additional Instructions: The CT scan of your neck was negative for acute injury, the x-ray of the shoulder was also negative for acute injury. You have sustained a contusion of the shoulder and strain of the neck. See home care instructions. Use ibuprofen 600 mg taken every 6 hours with food as an anti-inflammatory, use the methocarbamol, this is a muscle relaxant, as needed for further discomfort. To note this medication will cause drowsiness, do not drive or operate machinery while taking the medication. Follow up with your primary care provider as needed. Prescriptions: New ibuprofen 600 mg tablet 600 mg PO Q6H PRN (Reason: pain) Qty: 20 0RF methocarbamol 750 mg tablet 750 mg PO Q8H PRN (Reason: pain) Qty: 10 0RF No Action cholecalciferol (vitamin D3) [Vitamin D3] 10 mcg (400 unit) Tablet,Chewable 10 mcg PO DAILY Qty: 90 4RF (DME) bra, mastectomy Crystals Qty: 1 0RF Rx Instructions: As Directed (DME) mastectomy bra Crystals Qty: 6 0RF Rx Instructions: As Directed (DME) mastectomy bra Crystals Qty: 2 0RF Rx Instructions: As Directed (DME) prosthetics Kit Qty: 2 0RF Rx Instructions: As Directed ondansetron 4 mg tablet,disintegrating 4 mg PO Q8H PRN (Reason: nausea and vomiting) Qty: 10 0RF azithromycin 250 mg tablet See Rx Instructions .ROUTE .COMPLEX Qty: 6 0RF Rx Instructions: For 250 mg dose pack: take 500 mg today (day 1), then 250 mg for 4 days (days 2-5) sertraline 50 mg tablet 50 mg PO DAILY Qty: 30 2RF Rx Instructions: take 25 mg (0.5 tab) once a day for the 1st week , then increase to 50 mg once a day afterwards gabapentin 300 mg capsule 300 mg PO TID Qty: 90 0RF All Day Allergy (cetirizine) 10 mg capsule 10 mg PO DAILY PRN (Reason: allergy symptoms) Qty: 30 0RF Print Language: [place]
[2024-07-08] MEDS: methocarbamoL 750 MG TABLET PO (00:25)
[2024-07-08] MEDS: Ibuprofen 600 MG TABLET PO (00:26)
[2024-07-08 00:29] VITALS: BP 122/76; PULSE 74; RESP 17; TEMP 36.8; O2SAT 98
== END 2024-07-08 00:30 | disposition home or self-care (01) ==
PROVIDERS: Emergency Provider Internal Medicine; PCP Internal Medicine
DX: S16.1XXA Strain of muscle, fascia and tendon at neck level, initial encounter (principal); S40.011A Contusion of right shoulder, initial encounter; W00.0XXA Fall on same level due to ice and snow, initial encounter; Y93.9 Activity, unspecified; Y92.9 Unspecified place or not applicable; Y99.9 Unspecified external cause status
CPT/HCPCS: 72125; 73030; 99283; 99284

== ENCOUNTER → 2024-07-07 20:29 | Outpatient (BNV) | payer MEDICARE, MEDICAID, SELFPAY | PROVIDERS: PCP Internal Medicine; Visit Provider Specialist | DX: M54.2 Cervicalgia (principal); M25.511 Pain in right shoulder | CPT/HCPCS: 72125; 73030 ==

== ENCOUNTER 2024-07-10 10:39 | Outpatient (AMB) | payer MEDICARE, MEDICAID, SELFPAY ==
--- NOTE | 2024-07-10 10:41 | MHC.OFFWIV ---
Intake Vital Signs 07/10/24 10:42 Weight 158 lb BP 120/90 H Blood Pressure Location Lt brachial Position Sitting Pulse 77 Pulse Source Pulse Oximeter Pulse Oximetry (%) 98 Oxygen Delivery Method Room Air Intake Visit Reasons: EP Fall (Not WC) RT shoulder/neck pain Intake Note: Patient here for right shoulder/neck pain after a fall about 1 week ago. Patient Tobacco Use Status: Never used Tobacco Allergies diphenhydramine [From BENADRYL] Allergy (Intermediate, Verified 07/10/24 10:42) RASH Penicillins [PENICILLINS] Allergy (Intermediate, Verified 07/10/24 10:42) RASH LAUGHING GAS Allergy (Intermediate, Uncoded 07/10/24 10:42) RASH/HIVES/SWELLING Do you need a note to return to daycare/school/sports/work: No HPI HPI Comments History of Present Illness Details History of Present Illness - The patient is a 49-year-old female presenting with right shoulder pain and neck pain following a fall. She did not lose consciousness, she did not hit her head and she is not on a blood thinner. She denies nausea and vomiting but does endorse some headaches. The fall, which occurred over a week ago, resulted in the patient landing on her right side, affecting her head and shoulder. Patient went to the ED and had cervical CT and right shoulder XR which were negative, indicating a musculoskeletal strain. She was prescribed ibuprofen and a muscle relaxer which she has been taking. She states she continues to have significant pain. Her medical history includes a prior frozen shoulder, and she is currently experiencing restricted movement in her right arm. Physical Exam General: Cooperative, healthy appearing, comfortable, no acute distress and well developed Orientation: Patient oriented x3 Limitations: Limited range of motion in the right shoulder due to pain Head: Normal to inspection, no loss of consciousness reported after fall Ears: Hearing grossly normal bilaterally Nose: Normal external nose present Face and sinus: Normal facial exam Eyes: Appearance normal, both eyes and all related structures Neck: Normal visual inspection, full ROM, no TTP on cervical spine, TTP on right trapezius Respiratory: Normal respiratory effort and able to speak in complete sentences. Skin: No rashes or lesions noted Neuro: Patient oriented x3 Extremities: as below [facility] Medical History Anxiety and depression Gallbladder cancer, carcinoma Adhesive capsulitis of right shoulder Adhesive capsulitis of left shoulder Vitamin D deficiency Anxiety disorder [place] disease Breast cancer, BRCA1 positive Surgical History History of colonoscopy History of cholecystectomy H/O bilateral mastectomy History of hysterectomy with bilateral oophorectomy Family History Father Prostate cancer Paternal Aunt Breast cancer Maternal Grandmother Alzheimer's dementia Mother Endometrial cancer Son No problems noted. Social History Household Members: None Housing: Apartment Are you a primary child care attendant to a significant other at home: No Do you presently have visiting nurse or other home services: No Alcohol intake: never Patient Tobacco Use Status: Never used Tobacco e-Cigarette/Vaping Use: Never Used service: No Current occupational status: unemployed Gender identity: Female Cognitive needs: No Hearing needs: No Vision needs: No Female Reproductive History Menstrual Age of Menarche: 11 Review of Systems Const All systems reviewed & are unremarkable except as noted in HPI and below Physical Exam Vital Signs: Last Vital Signs Pulse 77 07/10/24 10:42 BP 120/90 H 07/10/24 10:42 Pulse Ox 98 07/10/24 10:42 Oxygen Delivery Method Room Air 07/10/24 10:42 Extrem Right upper extremity: shoulder/upper arm Details: normal to inspection, tenderness and abnormal ROM Details: pain with active ROM (full adduction); no swelling, no lacerations, no ecchymosis, no deformity and no unusual warmth Assessment & Plan Assessment & Plan (1) Fall: Code(s): W19.XXXA - Unspecified fall, initial encounter Qualifiers: Encounter type: subsequent encounter Qualified Code(s): W19.XXXD - Unspecified fall, subsequent encounter Plan: The patient was prescribed meloxicam to manage pain from the musculoskeletal strain and right shoulder contusion following a fall. A sling was provided to rest the shoulder, with instructions for use limited to four to six days to prevent a recurrence of frozen shoulder. Ice application was recommended to help reduce inflammation, and the patient was advised to avoid using other anti-inflammatory medications concurrently with Meloxicam. The importance of gentle range of motion exercises after the initial rest period was emphasized to prevent further complications. Follow-up care was suggested if symptoms persisted, including potential referral for physical therapy to aid recovery. Patient was informed and verbally consented to the use of an ambient scribe for clinic note documentation during this visit. (2) Sprain of right shoulder: Code(s): S43.401A - Unspecified sprain of right shoulder joint, initial encounter Qualifiers: Encounter type: subsequent encounter Shoulder sprain type: unspecified sprain Qualified Code(s): S43.401D - Unspecified sprain of right shoulder joint, subsequent encounter Plan: as above Medications: New meloxicam 15 mg PO DAILY 20 tabs 0RF Coding Level of Care Code Est Pt Level 4 (88694) Diagnoses Fall, subsequent encounter W19.XXXD Encounter type: subsequent encounter Sprain of right shoulder, unspecified shoulder sprain type, subsequent encounter S43.401D Encounter type: subsequent encounter Shoulder sprain type: unspecified sprain
[2024-07-10 10:42] VITALS: BP 120/90; PULSE 77; O2SAT 98
== END 2024-07-10 11:15 | disposition home or self-care (01) ==
PROVIDERS: PCP Internal Medicine; Visit Provider Physician Assistant
DX: S43.401A Unspecified sprain of right shoulder joint, initial encounter (principal); W19.XXXA Unspecified fall, initial encounter

== ENCOUNTER → 2024-07-10 10:39 | Outpatient (BNVA) | payer MEDICARE, MEDICAID, SELFPAY | PROVIDERS: PCP Internal Medicine | DX: S43.401D Unspecified sprain of right shoulder joint, subsequent encounter (principal); W19.XXXD Unspecified fall, subsequent encounter | CPT/HCPCS: 99212 ==

== ENCOUNTER 2024-07-20 16:47 | Emergency (ER) | payer MEDICARE, MEDICAID, SELFPAY ==
--- NOTE | ~2024-07-20 | XR_ITS ---
CLINICAL HISTORY: back pain 3 views lumbar spine Comparison: None Findings: There is straightening of the normal lumbar lordosis. There is mild disc space narrowing at L3-L4 with bridging osteophytes. There is also mild disc space narrowing at L5-S1. IMPRESSION: No acute findings. Mild degenerative changes. This document has been electronically signed by: Zach Gonzalez MD on 07/20/2024 18:41:56
[2024-07-20 17:46] VITALS: BP 118/72; RESP 16; TEMP 36.8; O2SAT 100; BMI 28.2
--- NOTE | 2024-07-20 17:51 | ED_ITS ---
HPI - Back Pain/Injury General Chief Complaint: Back Pain/Injury Stated Complaint: lower back pain Time Seen by Provider: 07/20/24 22:37 Source: patient Mode of arrival: ambulatory Limitations: no limitations History of Present Illness ED Provider: HPI Narrative: patient with no significant past medical history apparently fell 2 weeks ago on the ice had upper back pain now for last 5 days complaining of pain in the lower back with no radiation of the pain no bladder or bowel involvement no history of kidney stone patient ambulatory as such had the lumbar spine x-ray done prior to my evaluation which is without any fracture Related Data Previous Rx's ?Medication ?Instructions ?Recorded mastectomy bra (bra, mastectomy) #1 ea 03/16/22 mastectomy bra #2 ea 03/24/22 mastectomy bra #6 ea 03/24/22 prosthetics #2 ea 03/27/22 sertraline 50 mg tablet 50 mg PO DAILY #30 tabs 03/31/22 ondansetron 4 mg disintegrating 4 mg PO Q8H PRN nausea and 06/01/24 tablet vomiting #10 tabs ibuprofen 600 mg tablet 600 mg PO Q6H PRN pain #20 tabs 07/08/24 methocarbamol 750 mg tablet 750 mg PO Q8H PRN pain #10 tabs 07/08/24 meloxicam 15 mg tablet 15 mg PO DAILY #20 tabs 07/10/24 oxycodone 5 mg tablet 5 mg PO Q6H PRN pain #20 tabs 07/20/24 Allergies Allergy/AdvReac Type Severity Reaction Status Date / Time diphenhydramine Allergy Intermediate RASH Verified 07/20/24 17:47 [From BENADRYL] Penicillins [PENICILLINS] Allergy Intermediate RASH Verified 07/20/24 17:47 LAUGHING GAS Allergy Intermediate RASH/HIVES/ Uncoded 07/20/24 17:47 SWELLING Review of Systems Review of Systems: Yes all other systems are reviewed and are negative PMFSH Past Medical History Medical History Anxiety and depression Gallbladder cancer, carcinoma Adhesive capsulitis of right shoulder Adhesive capsulitis of left shoulder Vitamin D deficiency Anxiety disorder [place] disease Breast cancer, BRCA1 positive Surgical History History of colonoscopy History of cholecystectomy H/O bilateral mastectomy History of hysterectomy with bilateral oophorectomy Family History Family History Father Prostate cancer Paternal Aunt Breast cancer Maternal Grandmother Alzheimer's dementia Mother Endometrial cancer Son No problems noted. Social History Social History Household Members: None Housing: Apartment Are you a primary director critical care to a significant other at home: No Do you presently have visiting nurse or other home services: No Alcohol intake: never Patient Tobacco Use Status: Never used Tobacco e-Cigarette/Vaping Use: Never Used Advance Directives: No Advance Directives Information Provided: Yes service: No Current occupational status: unemployed Gender identity: Female Cognitive needs: No Hearing needs: No Vision needs: No Physical Exam Vital Signs: Vital Signs: Last Vital Signs Temp 97.8 F 07/20/24 23:16 Pulse 66 07/20/24 23:16 Resp 18 07/20/24 23:16 BP 109/64 07/20/24 23:16 Pulse Ox 98 07/20/24 23:16 O2 Del Method Room Air 07/20/24 23:16 BMI result Body Mass Index 28.2 Appearance: Alert. Oriented X3. No acute distress. Neck: Normal inspection. Neck supple. CVS: Normal heart rate and rhythm. Pulses normal. Respiratory: No respiratory distress. Equal air entry bilateral, no wheezing/rales/rhonchi Abdomen: Soft and nontender. Bowel sounds are present, no mass palpable, no CVA tenderness Skin: Skin warm and dry. Normal skin color. Normal skin turgor. Extremities: No lower extremity edema. No calf tenderness back; diffuse tenderness in paraspinal lumbar area no focal spinal tenderness SLR negative bilateral neurovascular intact sacral sensation intact Neuro: Oriented X 3. No motor deficit. No sensory deficit.No cerebellar signs , cranial nerves II-XII intact Course Course Course Narrative: This is an RME: Additional HPI, ROS, PE not included below will be deferred to primary provider. RME assessment and note performed by: Elvia Rey PA-C This is a 49-year-old female who presents emergency department with complaints of left-sided low back pain radiating to right side of her low back pain for the last 4 days. No saddle anesthesia. No urinary symptoms. She had a fall 2 weeks ago > seen for this however did not have pain initially. Plan: X-rays, further ER evaluation needed. Medications Administered Discontinued Medications Generic Name Dose Route Start Last Admin Trade Name Freq PRN Reason Stop Dose Admin Oxycodone HCl 10 mg 07/20/24 23:06 07/20/24 23:15 Oxycodone Hcl Immed Release 5 Mg Tablet PO 07/20/24 23:07 10 mg ONCE ONE Administration Medical Decision Making Medical Decision Making [facility] Narrative: patient clinically with lumbar strain x-ray negative for lumbar fracture no signs of spinal cord injuries patient advised to take oxycodone for pain continue to take muscle relaxant as prescribed previously Independent Interpretation I performed an independent interpretation of an: Plain X-Ray Interpretation: no fracture Discharge Plan Discharge Clinical Impression: Low back pain Patient Disposition: Home, Self-Care Instructions: Acute Low Back Pain (ED) Additional Instructions: rest at home apply ice pack Pain medication as prescribed follow up with your PCP if not better Prescriptions: New oxycodone 5 mg tablet 5 mg PO Q6H PRN (Reason: pain) Qty: 20 0RF Rx Instructions: Partial Fill upon patient request. No Action (DME) bra, mastectomy Crystals Qty: 1 0RF Rx Instructions: As Directed (DME) mastectomy bra Crystals Qty: 6 0RF Rx Instructions: As Directed (DME) mastectomy bra Crystals Qty: 2 0RF Rx Instructions: As Directed (DME) prosthetics Kit Qty: 2 0RF Rx Instructions: As Directed ondansetron 4 mg tablet,disintegrating 4 mg PO Q8H PRN (Reason: nausea and vomiting) Qty: 10 0RF ibuprofen 600 mg tablet 600 mg PO Q6H PRN (Reason: pain) Qty: 20 0RF methocarbamol 750 mg tablet 750 mg PO Q8H PRN (Reason: pain) Qty: 10 0RF sertraline 50 mg tablet 50 mg PO DAILY Qty: 30 2RF Rx Instructions: take 25 mg (0.5 tab) once a day for the 1st week , then increase to 50 mg once a day afterwards meloxicam 15 mg tablet 15 mg PO DAILY Qty: 20 0RF Interventions: ED Discharge Assessment Last Done: 07/20/24 23:16 Discharge Date/Time: 07/20/24 23:17 Print Language: Khmer
[2024-07-20 21:50] VITALS: BP 129/74; PULSE 66; RESP 18; TEMP 36.8; O2SAT 99
[2024-07-20 22:48] VITALS: BP 109/64; PULSE 66; RESP 18; TEMP 36.6; O2SAT 98
[2024-07-20] MEDS: oxyCODONE HCl Immed Release 5 MG TABLET 10 MG PO (23:15)
[2024-07-20 23:16] VITALS: BP 109/64; PULSE 66; RESP 18; TEMP 36.6; O2SAT 98
== END 2024-07-20 23:17 | disposition home or self-care (01) ==
PROVIDERS: Emergency Provider Internal Medicine; PCP Internal Medicine
DX: M54.50 Low back pain, unspecified (principal)
CPT/HCPCS: 72100; 99283

== ENCOUNTER → 2024-07-20 17:53 | Outpatient (BNV) | payer MEDICARE, MEDICAID, SELFPAY | PROVIDERS: Visit Provider Radiology Vascular & Interventional Radiology | DX: M54.50 Low back pain, unspecified (principal) | CPT/HCPCS: 72100 ==

== ENCOUNTER 2024-07-21 14:51 | Outpatient (AMB) | payer MEDICARE, MEDICAID, SELFPAY ==
[2024-07-21 14:52] VITALS: BP 108/68; PULSE 67; O2SAT 97; BMI 28.7
--- NOTE | 2024-07-21 14:52 | MHC.PC.OV ---
Vital Signs 07/21/24 14:52 Height 5 ft 7 in Weight 183 lb BMI 28.7 BP 108/68 Blood Pressure Location Rt brachial Position Sitting Pulse 67 Pulse Source Pulse Oximeter Pulse Oximetry (%) 97 Oxygen Delivery Method Room Air Intake Visit Reasons: back pain, ok per Dr Drew Allergies diphenhydramine [From BENADRYL] Allergy (Intermediate, Verified 07/21/24 14:52) RASH Penicillins [PENICILLINS] Allergy (Intermediate, Verified 07/21/24 14:52) RASH LAUGHING GAS Allergy (Intermediate, Uncoded 07/20/24 17:47) RASH/HIVES/SWELLING Medication List - Last Reconciled 07/21/24 by Mina Drew MD mastectomy bra As Directed mastectomy bra (bra, mastectomy) As Directed mastectomy bra As Directed meloxicam 15 mg PO DAILY methocarbamol 750 mg PO Q8H PRN ondansetron 4 mg PO Q8H PRN oxycodone 5 mg PO Q6H PRN prosthetics As Directed sertraline 50 mg PO DAILY Tobacco use date assessed: 07/21/24 Dental Screening Dental Screen Date: 07/21/24 Did you have a dental problem in the last 6 months where you did not have access to dental care?: No HPI back pain, ok per Dr Derw HPI Details Patient is a 49-year-old female came in today to be evaluated after visiting emergency room [facility] dated 07/20/2024 Patient fell 2 weeks before arrival to emergency room on ice and complained of upper back pain of 5 days' duration There was no radiation of pain no bladder or bowel issues She had lumbar spine x-rays done in walk-in clinic which showed no fracture On examination in the emergency room patient had diffuse tenderness in paraspinal lumbar area without any focal spinal tenderness, straight leg negative bilateral sensory was intact X-rays were done in emergency room as well and showed no fracture She was given 20 tablets of oxycodone and was discharged home She is also taking ibuprofen 600 mg p.r.n. Methocarbamol 750 mg p.r.n. I also see meloxicam 15 mg, patient was notified not to take ibuprofen and meloxicam together Patient states that of these medications are helping and she is not taking ibuprofen - X-ray results showed no bone fractures, suggesting musculoskeletal or soft tissue involvement. - The back pain is localized with a focus on the sacroiliac joint region, primarily affecting the left side. - Social history is significant for the recent loss of the patient's only son, impacting her support system. - her right shoulder is also in sling, patient is having difficulty lifting it above head And is tender on examination all over X-ray of shoulder shows no fracture either I have placed a referral for her to see an orthopedic for the right shoulder pain Physical therapy to be started for back pain Oxycodone 20 tablets sent to be taken 1 as needed Q 6 Baclofen 20 mg t.i.d. as needed for muscle spasms patient is aware that medications will cause drowsiness no machine abrasion and driving while taking these medications Meloxicam changed to diclofenac 75 mg b.i.d. with food as needed Problem List - Right Shoulder Pain post fall - Sacroiliac Joint Inflammation - Chronic Low Back Pain Patient Instructions - Discontinue the use of meloxicam and methocarbamol. - Begin prescribed alternative muscle relaxant and pain medication as directed. - Continue using oxycodone as needed for severe pain. - Schedule and attend an appointment with an cardiology clinical nurse specialist for further evaluation of the shoulder. - Begin physical therapy for the back to assist with pain management and mobility improvement. - Note any worsening of symptoms or new symptoms and seek medical attention if necessary. Review of Systems. - General: No fever no chills - Neurological: No headaches no dizziness - Ear nose throat: No sore throat no hearing difficulty no ear pain - Cardiovascular: No syncope, no chest pain, no palpitations - Gastrointestinal: No nausea vomiting or diarrhea - Endocrine: No polyuria polydipsia no heat intolerance - Genitourinary: No dysuria , no blood in urine Physical Exam General: No acute distress HEENT: No acute findings Neck: Supple Respiratory system: Able to talk in full sentences, no audible wheeze cardiovascular: S1-S2 regular in rate and rhythm Gastrointestinal: No pain Back: Tender over left sacroiliac joint and paraspinal lumbar with limited range of motion in flexion Extremities: Right shoulder pain, limited range of motion, shoulder in a sling, tender all over with pressure RN TRIAGE: Alert awake oriented x3 motor sensory intact, straight leg negative bilateral Skin: Normal turgor [facility] Medical History Anxiety and depression Gallbladder cancer, carcinoma Adhesive capsulitis of right shoulder Adhesive capsulitis of left shoulder Vitamin D deficiency Anxiety disorder [place] disease Breast cancer, BRCA1 positive Surgical History History of colonoscopy History of cholecystectomy H/O bilateral mastectomy History of hysterectomy with bilateral oophorectomy Family History Father Prostate cancer Paternal Aunt Breast cancer Maternal Grandmother Alzheimer's dementia Mother Endometrial cancer Son No problems noted. Social History Household Members: None Housing: Apartment Are you a primary senior caregiver to a significant other at home: No Do you presently have visiting nurse or other home services: No Alcohol intake: never Patient Tobacco Use Status: Never used Tobacco e-Cigarette/Vaping Use: Never Used service: No Current occupational status: unemployed Gender identity: Female Cognitive needs: No Hearing needs: No Vision needs: No Female Reproductive History Menstrual Age of Menarche: 11 Questionnaire Thrive Questionnaire Date Thrive assessed: 03/31/22 AUDIT C Alcohol Use Questionnaire (AUDIT-C) 1. How often do you have a drink containing alcohol?: Never 3. How often do you have six or more drinks on one occasion?: Never Total Score: 0 Score Reviewed/Action Taken: Yes DAVID-7 AMB Questionnaire DAVID-7 Date DAVID - 7 assessed: 03/31/22 Source: Developed by Drs. Shabbir Hubbard, Coreen Panchal, Farhad Basilio and colleagues, with an educational pool from [employer]. Review of Systems Const Denies chills and Denies fever(s) ENT Denies epistaxis and Denies nasal discharge Card Denies chest pain Resp Denies chest congestion, Denies cough and Denies hemoptysis GI Denies diarrhea and Denies nausea Skin/Breast Denies rash Neuro Reports no additional complaints Psych Reports no additional complaints Endo Reports no additional complaints Physical exam (Primary Care) Vital Signs: Last Vital Signs Pulse 67 07/21/24 14:52 BP 108/68 07/21/24 14:52 Pulse Ox 97 07/21/24 14:52 Oxygen Delivery Method Room Air 07/21/24 14:52 BMI result Body Mass Index 28.7 Tobacco/Smoking Status: Tobacco use Status Tobacco use date assessed 07/21/24 07/21/24 14:55 Patient Tobacco Use Status Never used Tobacco 07/21/24 14:55 e-Cigarette/Vaping Use Never Used 07/21/24 14:55 Thrive Assessment: Date of Thrive Assessment Date Thrive assessed 03/31/22 07/21/24 14:55 Const General: cooperative, comfortable and no acute distress Orientation/consciousness: patient oriented x3 HENMT Head: Yes normocephalic Eyes General: appearance normal, both eyes and all related structures Neck Neck: Yes supple Resp Effort & Inspection: normal respiratory effort, no cough and no stridor Cardio Rhythm: regular rhythm Heart sounds: S1 normal heart sound present and S2 normal heart sound present Skin General skin exam: turgor normal Neuro General: patient oriented x3, tone normal and moves all extremities Extrem Right lower extremity: no edema Left lower extremity: no edema Coding Level of Care Code Est Pt Level 5 (84933) Diagnoses Fall, subsequent encounter W19.XXXD Encounter type: subsequent encounter Sacroiliac joint pain M53.3 Strain of lumbar region, initial encounter S39.012A Encounter type: initial encounter Injury of right shoulder, initial encounter S49.91XA Encounter type: initial encounter Acute pain of right shoulder M25.511 Chronicity: acute Pain management R52 Assessment & Plan Assessment & Plan (1) Fall: Code(s): W19.XXXA - Unspecified fall, initial encounter Category: Medical Qualifiers: Encounter type: subsequent encounter Qualified Code(s): W19.XXXD - Unspecified fall, subsequent encounter (2) Sacroiliac joint pain: Code(s): M53.3 - Sacrococcygeal disorders, not elsewhere classified Category: Medical (3) Lumbar spine strain: Code(s): S39.012A - Strain of muscle, fascia and tendon of lower back, initial encounter Category: Medical Qualifiers: Encounter type: initial encounter Qualified Code(s): S39.012A - Strain of muscle, fascia and tendon of lower back, initial encounter (4) Right shoulder injury: Code(s): S49.91XA - Unspecified injury of right shoulder and upper arm, initial encounter Category: Medical Qualifiers: Encounter type: initial encounter Qualified Code(s): S49.91XA - Unspecified injury of right shoulder and upper arm, initial encounter (5) Shoulder pain, right: Code(s): M25.511 - Pain in right shoulder Category: Medical Qualifiers: Chronicity: acute Qualified Code(s): M25.511 - Pain in right shoulder (6) Pain management: Code(s): R52 - Pain, unspecified Category: Medical Plan Patient is a 49-year-old female came in today to be evaluated after visiting emergency room [facility] dated 07/20/2024 Patient fell 2 weeks before arrival to emergency room on ice and complained of upper back pain of 5 days' duration There was no radiation of pain no bladder or bowel issues She had lumbar spine x-rays done in walk-in clinic which showed no fracture On examination in the emergency room patient had diffuse tenderness in paraspinal lumbar area without any focal spinal tenderness, straight leg negative bilateral sensory was intact X-rays were done in emergency room as well and showed no fracture She was given 20 tablets of oxycodone and was discharged home She is also taking ibuprofen 600 mg p.r.n. Methocarbamol 750 mg p.r.n. I also see meloxicam 15 mg, patient was notified not to take ibuprofen and meloxicam together Patient states that of these medications are helping and she is not taking ibuprofen - X-ray results showed no bone fractures, suggesting musculoskeletal or soft tissue involvement. - The back pain is localized with a focus on the sacroiliac joint region, primarily affecting the left side. - Social history is significant for the recent loss of the patient's only son, impacting her support system. - her right shoulder is also in sling, patient is having difficulty lifting it above head And is tender on examination all over X-ray of shoulder shows no fracture either I have placed a referral for her to see an orthopedic for the right shoulder pain Physical therapy to be started for back pain Oxycodone 20 tablets sent to be taken 1 as needed Q 6 Baclofen 20 mg t.i.d. as needed for muscle spasms patient is aware that medications will cause drowsiness no machine abrasion and driving while taking these medications Meloxicam changed to diclofenac 75 mg b.i.d. with food as needed Problem List - Right Shoulder Pain post fall - Sacroiliac Joint Inflammation - Chronic Low Back Pain Patient Instructions - Discontinue the use of meloxicam and methocarbamol. - Begin prescribed alternative muscle relaxant and pain medication as directed. - Continue using oxycodone as needed for severe pain. - Schedule and attend an appointment with an cardiology clinical nurse specialist for further evaluation of the shoulder. - Begin physical therapy for the back to assist with pain management and mobility improvement. - Note any worsening of symptoms or new symptoms and seek medical attention if necessary. 40 minutes spent in care of this patient Orders: Orders PT Evaluation and Treatment Today M53.3 - Sacrococcygeal disorders, not elsewhere classified, S39.012A - Strain of muscle, fascia and tendon of lower back, initial encounter, W19.XXXD - Unspecified fall, subsequent encounter Referrals Orthopedics Referral M25.511 - Pain in right shoulder, S49.91XA - Unspecified injury of right shoulder and upper arm, initial encounter Medications: New baclofen Medication will make you very drowsy, no driving while taking this medication or working with machine 20 mg PO TID PRN 21 tabs 0RF back pain 7 days diclofenac sodium 75 mg PO BID 20 tabs 0RF pain 10 days Changed From oxycodone Partial Fill upon patient request. 5 mg PO Q6H PRN 20 tabs 0RF pain To oxycodone Partial Fill upon patient request. 5 mg PO Q6H PRN 28 tabs 0RF pain 7 days Discontinued methocarbamol Discontinued Reason: Doctor's Order 750 mg PO Q8H PRN 10 tabs 0RF pain meloxicam Discontinued Reason: Doctor's Order 15 mg PO DAILY 20 tabs 0RF
== END 2024-07-21 15:35 | disposition home or self-care (01) ==
LOC: HO.HMCC 14:51
PROVIDERS: PCP Internal Medicine; Visit Provider Internal Medicine
DX: S39.012A Strain of muscle, fascia and tendon of lower back, initial encounter (principal); W19.XXXD Unspecified fall, subsequent encounter; M53.3 Sacrococcygeal disorders, not elsewhere classified; S49.91XA Unspecified injury of right shoulder and upper arm, initial encounter; M25.511 Pain in right shoulder; R52 Pain, unspecified

== ENCOUNTER → 2024-07-21 14:51 | Outpatient (BNVA) | payer MEDICARE, MEDICAID, SELFPAY | PROVIDERS: PCP Internal Medicine; Visit Provider Internal Medicine | DX: M53.3 Sacrococcygeal disorders, not elsewhere classified (principal); S39.012D Strain of muscle, fascia and tendon of lower back, subsequent encounter; S49.91XD Unspecified injury of right shoulder and upper arm, subsequent encounter; W19.XXXD Unspecified fall, subsequent encounter; M25.511 Pain in right shoulder | CPT/HCPCS: 99212 ==

== ENCOUNTER 2024-09-13 12:35 | Outpatient (AMB) | payer MEDICARE, MEDICAID, SELFPAY ==
--- NOTE | 2024-09-13 12:40 | MHC.OFFVIS ---
Vital Signs 09/13/24 12:47 Height 5 ft 7 in Weight 183 lb BMI 28.7 Intake Visit Reasons: Right shoulder pain and weakness Intake Note: Lisandra is a 49 year old right hand dominant female who presents with complaints of progressively worsening right shoulder pain and weakness. The patient states that she fell on her right shoulder approximately 6 months ago. Since that time she has been going to formal physical therapy. She has gotten minimal relief from the therapy. She has tried Tylenol and anti-inflammatory medicines as well as baclofen which gave her only mild relief. The patient reports weakness when lifting her right hand above shoulder height. She has failed the last 6 weeks of conservative treatment which has included physical therapy exercises, a home exercise program, Tylenol, anti-inflammatory medicines and oxycodone. Allergies diphenhydramine [From BENADRYL] Allergy (Intermediate, Verified 09/13/24 12:41) RASH Penicillins [PENICILLINS] Allergy (Intermediate, Verified 09/13/24 12:41) RASH LAUGHING GAS Allergy (Intermediate, Uncoded 09/13/24 12:41) RASH/HIVES/SWELLING Medication List - Last Reconciled 09/13/24 by Mikel Mtoa MD baclofen 20 mg PO TID PRN 7 days diclofenac sodium 75 mg PO BID 10 days mastectomy bra As Directed mastectomy bra (bra, mastectomy) As Directed mastectomy bra As Directed ondansetron 4 mg PO Q8H PRN prosthetics As Directed sertraline 50 mg PO DAILY PFSH Medical History Anxiety and depression Gallbladder cancer, carcinoma Adhesive capsulitis of right shoulder Adhesive capsulitis of left shoulder Vitamin D deficiency Anxiety disorder [place] disease Breast cancer, BRCA1 positive Surgical History History of colonoscopy History of cholecystectomy H/O bilateral mastectomy History of hysterectomy with bilateral oophorectomy Family History Father Prostate cancer Paternal Aunt Breast cancer Maternal Grandmother Alzheimer's dementia Mother Endometrial cancer Son No problems noted. Social History Household Members: None Housing: Apartment Are you a primary spiritual care coordinator to a significant other at home: No Do you presently have visiting nurse or other home services: No Alcohol intake: never Patient Tobacco Use Status: Never used Tobacco e-Cigarette/Vaping Use: Never Used service: No Current occupational status: unemployed Gender identity: Female Cognitive needs: No Hearing needs: No Vision needs: No Female Reproductive History Menstrual Age of Menarche: 11 Physical Exam Vital Signs: BMI result Body Mass Index 28.7 Const Other: Well-nourished well-developed very friendly female awake alert and oriented x3 in no acute distress Extrem Other: Bilateral upper extremity examination shows good capillary refill, no skin lesions noted, normal sensation light touch Right shoulder examination shows slightly decreased range of motion when compared to her left shoulder, 4+ out of 5 strength with supraspinatus testing, positive impingement signs, tenderness over her acromioclavicular joint, no instability Results Reviewed Results Reviewed: X-rays of the patient's right shoulder show moderate to severe acromioclavicular joint narrowing, a type 2 acromion, no acute bony abnormalities Assessment & Plan Assessment & Plan (1) Rotator cuff insufficiency of right shoulder: Code(s): M25.311 - Other instability, right shoulder Category: Medical Plan Ms. Sykes presents with right shoulder pain and weakness due to impingement syndrome and possible rotator cuff tearing. Thus, I will send the patient for an MRI of her right shoulder for further evaluation. I will see her back once the MRI is completed to discuss the findings and treatment options. She will continue with her physical therapy exercises in the meantime. Feel free to call me at any time should questions regarding her orthopedic management arise. Thank you very much for asking me to see this very friendly patient. I spent 21 minutes in reviewing the patient's records and imaging studies, seeing the patient and documenting in the medical record. Orders: Orders MR shoulder RT wo con Today M25.311 - Other instability, right shoulder PT Evaluation and Treatment Today M25.811 - Other specified joint disorders, right shoulder Coding Level of Care Code New Pt Level 3 (95150) Complex EM visit Add On G2211 Diagnoses Rotator cuff insufficiency of right shoulder M25.311
[2024-09-13 12:47] VITALS: BMI 28.7
== END 2024-09-13 12:57 | disposition home or self-care (01) ==
LOC: HO.HOS 12:36
PROVIDERS: PCP Internal Medicine; Visit Provider Orthopaedic Surgery
DX: M25.311 Other instability, right shoulder (principal)
CPT/HCPCS: 99203; G2211

== ENCOUNTER → 2024-09-13 12:35 | Outpatient (BNVA) | payer MEDICARE, MEDICAID, SELFPAY | PROVIDERS: PCP Internal Medicine; Visit Provider Orthopaedic Surgery | DX: M25.311 Other instability, right shoulder (principal); M25.811 Other specified joint disorders, right shoulder; R53.1 Weakness | CPT/HCPCS: 99202 ==

== ENCOUNTER 2024-10-05 07:00 | Outpatient (RCR) | payer MEDICARE, MEDICAID, SELFPAY ==
--- NOTE | 2024-08-03 07:02 | MHC.PT.EP ---
[facility] [place] [facility] [place] [facility] [place] [facility] [address] Orlin Huerta [address] [phone] F: [phone] F: [phone] F: [phone] F: [phone] Physical Therapy Plan of Care Date of Evaluation: 08/03/24 Date of Surgery: Diagnosis: lumbar spine pain, strain Assessment: Patient is a 49 year old R handed female who presents with s/s consistent with low back pain, strain. She is disabled and fairly sedentary. Patient past medical history includes shoulder pain, breast cancer, and disability. Current impairments include pain, posture, ROM, flexibility, strength, activity tolerance and functional mobility. Functional limitations include decreased ability to walk, stand, bend, lift, carry, push, dress, sleep, and perform strenuous activities. Patient is motivated with good rehab potential. Skilled PT will address impairments and functional limitations in order to achieve goals. Frequency and Duration: The patient will be seen 2x/week for 5 weeks Short Term Goals: I with HEP - 2 weeks AROM rotation 50% and pain free - 3 weeks TTP absnet - 3 weeks Able to stand/walk > 30 minutes without increased pain - 3 weeks Elevator Repair Mechanic Goals: AROM 75% and pain free - 5 weeks Oswestry 30% or less - 5 weeks Hip strength 4+/5 grossly - 5 weeks Able to walk/stand > 1 hour with 2/10 max pain - 5 weeks Treatment Plan: Modalities to reduce pain, spasms and effusion. Manual therapy to restore motion and function. Therapeutic exercise to improve strength and flexibility. Neuromuscular re-education for posture and balance. Therapeutic activities to return to functional activities of daily living. Electronically signed by: Nikolas Mahoney, PT Please sign and return to therapist. Thank you for your referral.
--- NOTE | 2024-11-28 10:27 | MHC.PT.DC ---
[facility] [place] Office [place] Office [place] [facility] [address] Orlin Huerta [address] [phone] F: [phone] F: [phone] F: [phone] F: [phone] Physical Therapy Discharge Report Diagnosis: lumbar spine pain, strain Date of Surgery: Date of Evaluation: 08/03/24 Date of Discharge: 10/19/24 Treatments to Date: 7 Cancellations to Date: No Shows to Date: Discharge Status: Improved Function Independent with HEP Discharge Summary: 10/05/24: pt has been motivated and compliant throughout the course of skilled PT. I with HEP. AROM 75% and pain free. Oswestry 24%. Hip strength 4+/5 grossly. Able to walk and stand, drive > 1 hour without increased pain. TTP absent. she has met or progressed towards all goals and is appropriate to d/c to HEP at this time. 09/28/24: pt has been feeling better overall. improved flexibility and ROM. we will continue 1 more visit then d/c to HEP. 09/21/24: pt has been feeling better overall with skilled PT. added hip strength with no adverse reactions. continue to progress as tolerated. 09/01/24: good tolerance to STM. we will progress this moving forward to restore symmetrical tissue tension and extensibility. s/s reducing. 08/24/24: pt has been feeling better symptomatically. She does still have L sided low back pain but to lesser degree. 08/17/24: pt progressing well with reduced s/s with sitting and driving. tolerance to 20 minutes. continue to progress as tolerated. 08/10/24: assessed for innom symmetry. L ant innom addressed with MET. HEP updated to stabilize and promote symmetry. Patient is a 49 year old R handed female who presents with s/s consistent with low back pain, strain. She is disabled and fairly sedentary. Patient past medical history includes shoulder pain, breast cancer, and disability. Current impairments include pain, posture, ROM, flexibility, strength, activity tolerance and functional mobility. Functional limitations include decreased ability to walk, stand, bend, lift, carry, push, dress, sleep, and perform strenuous activities. Patient is motivated with good rehab potential. Skilled PT will address impairments and functional limitations in order to achieve goals. Electronically signed by: Nikolas Mahoney, PT Please sign and return to therapist. Thank you for your referral.
== END 2024-11-28 10:28 | disposition home or self-care (01) ==
LOC: HO.PTCHIC 07:00
PROVIDERS: PCP Internal Medicine; Visit Provider Internal Medicine
DX: M53.3 Sacrococcygeal disorders, not elsewhere classified (principal); S39.012D Strain of muscle, fascia and tendon of lower back, subsequent encounter; W19.XXXD Unspecified fall, subsequent encounter
CPT/HCPCS: 97110; 97140; 97162

== ENCOUNTER 2024-10-05 16:16 | Outpatient (REF) | payer MEDICARE, MEDICAID, SELFPAY ==
--- OUTSIDE RECORDS SUMMARY | 2024-10-05 16:25 | XMS_ITS | Encounter Summary ---
Author Organization [facility] Address [address] [place] [address] Care Team Providers Care Hospice Art Therapist Name Role Phone Nguyen Cantrell MD Primary Care Provider [phone] Encounter Details Date Type Department Care Team Description 02/14/2015 Business Doc Medical Records [address] [place] [id number] Abstract, Provider Social History Tobacco Use Types Packs/Day Years Used Date Smoking Tobacco: Never Smokeless Tobacco: Never Alcohol Use Standard Drinks/Week Comments Not Asked 0 (1 standard drink = 0.6 oz pur e alcohol) Sex Assigned at Date Recorded Not on file documented as of this encounter Plan of Treatment Not on file documented as of this encounter Visit Diagnoses Not on filedocumented in this encounter Care Teams Hospice Art Therapist Relationship Specialty Start Date End Date Nguyen Cantrell MD [address] [place] [address] PCP - General Internal Medicine 01/30/15 documented as of this encounter
== END 2024-10-05 16:17 | disposition home or self-care (01) ==
LOC: HO.MRI 16:16
PROVIDERS: PCP Internal Medicine; Visit Provider Orthopaedic Surgery
DX: Z13.89 Encounter for screening for other disorder (principal)

== ENCOUNTER → 2024-10-10 09:46 | Outpatient (BNV) | payer MEDICARE, MEDICAID, SELFPAY | PROVIDERS: PCP Internal Medicine; Visit Provider Radiology Diagnostic Radiology | DX: M75.31 Calcific tendinitis of right shoulder (principal) | CPT/HCPCS: 73221 ==

== ENCOUNTER 2024-10-10 09:47 | Outpatient (REF) | payer MEDICARE, MEDICAID, SELFPAY ==
--- NOTE | ~2024-10-10 | MR_ITS ---
EXAMINATION: MR SHOULDER WITHOUT CONTRAST, RIGHT CLINICAL INFORMATION: Fell June 2024, limited range of motion and pain since then COMPARISON: MRI June 29, 2019 X-ray of June 29, 2024 TECHNIQUE: MRI of the shoulder without contrast was performed on a high-field scanner. FINDINGS: Rotator Cuff: Super space tendon is intact. There is intermediate signal on the undersurface near the footprint. Interspace tendon is thickened with increased signal near the footprint. There is mild intermittent signal in the subscapularis tendon near the appropriate tendon is intact. Labrum: Labrum appears intact. Long biceps tendon: The long biceps tendon is intact and not displaced from the groove. Acromioclavicular joint: Small amount of fluid is present in the AC joint. AC joint is intact. A subacromial spur is noted. Acromial morphology is flat, type I. There is trace fluid signal or synovial thickening involving the the subacromial subdeltoid bursa, improved from the prior. Axillary pouch: The axillary pouch is intact. Demonstrates mild thickening and mild increased signal, improved since the prior. Articular cartilage: There are no articular cartilage defects. Bones/Marrow: Small marginal osteophyte is present involving the humeral head and glenoid. There are no marrow replacing lesions. Soft tissues: There is mild diffuse fatty streaking of the shoulder musculature. MR/MR shoulder RT wo con IMPRESSION: There is hypertrophic tendinopathy involving infraspinatus tendon and mild tendinopathy involving supraspinatus and subscapularis tendons. Mild glenohumeral degenerative changes. Possible adhesive capsulitis: Axillary pouch is thickened with increased intrinsic signal which can be present in asymptomatic individuals but is also present in those with adhesive capsulitis. The appearance is improved since the prior. Suspected mild synovial thickening without an effusion in the subacromial subdeltoid bursa, improved from the prior. Correlate for signs symptoms of bursitis. Electronically signed by: Harjit Horne MD 10/10/2024 12:04 PM EDT
== END 2024-10-10 09:48 | disposition home or self-care (01) ==
LOC: HO.MRI 09:47
PROVIDERS: PCP Internal Medicine; Visit Provider Orthopaedic Surgery
DX: M25.311 Other instability, right shoulder (principal)
CPT/HCPCS: 73221

== ENCOUNTER 2024-10-18 12:58 | Outpatient (AMB) | payer OTHER, MEDICARE, MEDICAID, SELFPAY ==
[2024-10-18 12:51] VITALS: BP 114/68; PULSE 64; TEMP 36.7; O2SAT 98; BMI 28.1
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
--- OUTSIDE RECORDS SUMMARY | 2024-10-18 14:29 | XMS_ITS | Encounter Summary ---
Author Organization [facility] Address [address] [place] [address] Care Team Providers Care Telecasting Engineer Name Role Phone Nguyen Cantrell MD Primary Care Provider [phone] Encounter Details Date Type Department Care Team Description 02/14/2015 Business Doc Medical Records [address] [place] [id number] Abstract, Provider Social History Tobacco Use Types [...] on filedocumented in this encounter Care Teams Telecasting Engineer Relationship Specialty Start Date End Date Nguyen Cantrell MD [address] [place] [address] PCP - General Internal Medicine 01/30/15 documented as of this encounter
== END 2024-10-18 14:39 | disposition home or self-care (01) ==
PROVIDERS: PCP Internal Medicine; Visit Provider Physician Assistant
DX: M25.511 Pain in right shoulder (principal); M54.2 Cervicalgia; V49.50XA Passenger injured in collision with unspecified motor vehicles in traffic accident, initial encounter

== ENCOUNTER → 2024-10-18 12:58 | Outpatient (BNVA) | payer OTHER, MEDICARE, MEDICAID, SELFPAY | PROVIDERS: PCP Internal Medicine; Visit Provider Physician Assistant | DX: Z13.89 Encounter for screening for other disorder (principal) ==

== ENCOUNTER 2024-10-25 13:30 | Outpatient (AMB) | payer MEDICARE, MEDICAID, SELFPAY ==
--- NOTE | 2024-10-25 13:34 | A.OFFVIS_ITS ---
Intake Visit Reasons: TEL-Right shoulder MRI review Intake Note: Lisandra is a 49 year old right hand dominant female who presents with complaints of intermittent right shoulder pain. The patient states that she fell on her right shoulder approximately 6 months ago. Since that time she has been going to formal physical therapy. She has gotten minimal relief from the therapy. She has tried Tylenol and anti-inflammatory medicines as well as baclofen which gave her only mild relief. The patient reports weakness when lifting her right hand above shoulder height. She has failed the last 6 weeks of conservative treatment which has included physical therapy exercises, a home exercise program, Tylenol, anti-inflammatory medicines and oxycodone. She has not had a cortisone injection. Allergies diphenhydramine (From BENADRYL) Allergy (Intermediate, Verified 10/18/24 12:51) RASH Penicillins (PENICILLINS) Allergy (Intermediate, Verified 10/18/24 12:51) RASH LAUGHING GAS Allergy (Intermediate, Uncoded 10/18/24 12:51) RASH/HIVES/SWELLING Medication List - Last Reconciled 10/25/24 by Mikel Mota MD cyclobenzaprine 5 mg PO Q8H PRN lidocaine 5% 1 patch topical DAILY PRN mastectomy bra As Directed mastectomy bra (bra, mastectomy) As Directed mastectomy bra As Directed naproxen 500 mg PO Q12H PRN oxycodone 5 mg PO Q8H PRN prosthetics As Directed sertraline 50 mg PO DAILY PFSH Medical History Anxiety and depression Gallbladder cancer, carcinoma Adhesive capsulitis of right shoulder Adhesive capsulitis of left shoulder Vitamin D deficiency Anxiety disorder [place] disease Breast cancer, BRCA1 positive Surgical History History of colonoscopy History of cholecystectomy H/O bilateral mastectomy History of hysterectomy with bilateral oophorectomy Family History Father Prostate cancer Paternal Aunt Breast cancer Maternal Grandmother Alzheimer's dementia Mother Endometrial cancer Son No problems noted. Social History Household Members: None Housing: Apartment Are you a primary vocational childcare teacher to a significant other at home: No Do you presently have visiting nurse or other home services: No Alcohol intake: never Patient Tobacco Use Status: Never used Tobacco e-Cigarette/Vaping Use: Never Used service: No Current occupational status: unemployed Gender identity: Female Cognitive needs: No Hearing needs: No Vision needs: No Female Reproductive History Menstrual Age of Menarche: 11 Physical Exam Const Other: Telemedicine appointment so no physical exam performed today Telehealth Telehealth Telehealth Platform: Telephone Location of provider rendering services: practice address Location of patient: address on file Patient Identification confirmed using: Name, : Yes Telehealth method: voice only Patient verbally consented to treatment: Yes Patient verbally consented to billing insurance company: Yes Patient informed of any privacy concerns related to visit: Yes Minutes spent on Phone/Video with Pt.: 11 Results Reviewed Results Reviewed: MRI of the patient's right shoulder shows moderate to severe acromioclavicular joint narrowing, a type 2 acromion, signal change within the supraspinatus tendon most likely due to adhesive capsulitis Assessment & Plan Assessment & Plan (1) Impingement of right shoulder: Code(s): M25.811 - Other specified joint disorders, right shoulder Category: Medical Plan Ms. Sykes presents with right shoulder pain due to impingement syndrome, acromioclavicular joint arthritis and adhesive capsulitis. I had a lengthy discussion with the patient regarding the treatment options. At this point the patient's symptoms are tolerable to her. We will hold off on a cortisone injection. She will continue with her [id number] exercises. She will follow up with me on an as-needed basis should her symptoms worsen in any way. Feel free to call me at any time should questions regarding her orthopedic management arise. Coding Level of Care Code Tele Est Pt Level 2 (06209) Diagnoses Impingement of right shoulder M25.811
== END 2024-10-25 13:37 | disposition home or self-care (01) ==
LOC: HO.HOS 13:30
PROVIDERS: PCP Internal Medicine; Visit Provider Orthopaedic Surgery
DX: M25.811 Other specified joint disorders, right shoulder (principal)
CPT/HCPCS: 99213

== ENCOUNTER → 2024-10-25 13:30 | Outpatient (BNVA) | payer MEDICARE, MEDICAID, SELFPAY | PROVIDERS: PCP Internal Medicine; Visit Provider Orthopaedic Surgery ==

== ENCOUNTER 2024-11-14 06:00 | Outpatient (REF) | payer MEDICARE, MEDICAID, SELFPAY ==
--- NOTE | ~2024-11-14 | CT_ITS ---
EXAMINATION: CT ABDOMEN AND PELVIS WITH CONTRAST CLINICAL INFORMATION: Follow-up enteritis. History of gallbladder cancer.. COMPARISON: June 01, 2024. TECHNIQUE: Multidetector volumetric images were obtained from the superior aspect of the liver through the pubic symphysis following administration 85 mL of Omnipaque 350 intravenous contrast. Sagittal and coronal reformatted images were obtained on the technologist's workstation. Oral contrast: No This CT examination was performed using dose optimization techniques as appropriate, variously including the following: *Automated exposure control *Adjustment of mA and/or kV according to patient size (this includes techniques or standardized protocols for targeted exams where dose is matched to indication/reason for exam; i.e. extremities or head) *Use of iterative reconstruction technique DLP: 411.1 mGy centimeter. FINDINGS: Limited by motion artifact. LUNG BASES: Beam hardening hardening artifact secondary to breast prosthesis. LIVER, GALLBLADDER, AND BILIARY TREE: Liver measures 17 cm. Decreased enhancement pattern. No focal mass. Main portal veins, hepatic veins and intrahepatic portion of the IVC are patent. Status post cholecystectomy. Common bile duct measures 6 mm. PANCREAS: Focal fatty infiltration head and uncinate process. No focal mass. No main pancreatic ductal dilatation. No peripancreatic fluid collection. SPLEEN: 6 cm. No focal lesion. ADRENAL GLANDS: No nodular lesion. KIDNEYS AND URETERS: No hydronephrosis. No gross nephrolithiasis. No renal mass. Normal enhancement pattern of the renal parenchyma. BLADDER: Fluid-filled. GASTROINTESTINAL TRACT: Segmental area cells intestinal wall thickening, mid to distal small bowel loops and transverse colon. Abundant stool, large intestine. No intestinal obstruction pattern. No pneumatosis intestinalis. No pneumoperitoneum. No ascites. No peripheral enhancing fluid collection. Mild mesenteric edema pattern. ABDOMINAL WALL: Edema pattern, fat planes of the anterior abdomen and pelvis wall. No gross umbilical hernia. LYMPH NODES: Nonspecific prominent mesenteric lymph nodes. VASCULAR: No aneurysm or dissection, abdominal aorta. PELVIC VISCERA: No gross masses. OSSEOUS STRUCTURES: Mild multilevel thoracolumbar spondylosis. No acute fracture or listhesis. No gross lytic or blastic lesions. 3 mm bony island, L4 vertebra. CT/CT abdomen pelvis w IV con IMPRESSION: Nonspecific segmental areas of intestinal wall containing mid to distal small bowel loops and transverse colon. No intestinal obstruction pattern. Fleischner guidelines were followed. Electronically signed by: Mc Rich MD 11/14/2024 11:09 AM EDT RP
--- NOTE | ~2024-11-14 | CT_ITS ---
EXAMINATION: CT CHEST WITH CONTRAST CLINICAL INFORMATION: Nodular swelling right chest wall/2:00. COMPARISON: February 28, 2020. TECHNIQUE: Multidetector volumetric CT imaging of the chest was obtained after the administration of 85 mL of Omnipaque 350 intravenous contrast without immediate adverse reactions. Axial MIP volume rendering provided. Sagittal and coronal reformatted images were obtained. This CT examination was performed using dose optimization techniques as appropriate, variously including the following: *Automated exposure control *Adjustment of mA and/or kV according to patient size (this includes techniques or standardized protocols for targeted exams where dose is matched to indication/reason for exam; i.e. extremities or head) *Use of iterative reconstruction technique DLP: 129.1 mGy centimeter. FINDINGS: Patient's motion artifact. TELECOMMUNICATIONS PROJECT MANAGER: Beam hardening artifact secondary to breast prosthesis. LUNGS: Pulmonary patchy groundglass, lower lung lobes and to a lesser extent lingula. No bronchiectasis. No honeycombing. No hyperinflation. Nonspecific 2.5 mm pulmonary nodule, anterior segment, left upper lung lobe.. MEDIASTINUM: No lymphadenopathy, mediastinum or perihilar. No aneurysm or dissection, thoracic aorta. No pericardial effusion. No pneumomediastinum. No hemopericardium. PLEURA: No pleural effusion. No pneumothorax. No hemothorax. No calcified pleural plaques. AXILLA: Nonspecific mildly prominent axillary lymph nodes. UPPER ABDOMEN: Decreased enhancement pattern of the liver. Status post cholecystectomy. OSSEOUS STRUCTURES: Mild multilevel thoracic spondylosis. No acute fracture or listhesis, axial skeleton. No lytic or blastic lesions. Status post bilateral mastectomy. There is a skin retraction extending into the muscle and osseous chest wall, right breast. No peripheral enhancing fluid collection. Focal 3 mm calcification right lateral anterior chest wall. CT/CT chest w IV con IMPRESSION: Skin retraction without fluid collection or other acute mass, right breast surgical site. Pulmonary edema versus pneumonitis, mild. Hepatic steatosis. Fleischner guidelines were followed. Electronically signed by: Mc Rich MD 11/14/2024 08:59 AM EDT
[2024-11-14] MEDS: iohexoL 350 MG/ML 100 ML INFUS..BTL 85 ML IV (08:37)
== END 2024-11-14 06:01 | disposition home or self-care (01) ==
LOC: HO.CT 06:00
PROVIDERS: PCP Internal Medicine; Visit Provider Internal Medicine
DX: C23 Malignant neoplasm of gallbladder (principal); C50.911 Malignant neoplasm of unspecified site of right female breast; R05.9 Cough, unspecified
CPT/HCPCS: 71260; 74177; Q9967

== ENCOUNTER → 2024-11-14 06:04 | Outpatient (BNV) | payer MEDICARE, MEDICAID, SELFPAY | PROVIDERS: PCP Internal Medicine; Visit Provider Radiology Diagnostic Radiology | DX: K56.690 Other partial intestinal obstruction (principal); Z85.09 Personal history of malignant neoplasm of other digestive organs; K76.0 Fatty (change of) liver, not elsewhere classified | CPT/HCPCS: 71260; 74177 ==

== ENCOUNTER 2024-11-21 12:42 | Outpatient (REF) | payer MEDICARE, MEDICAID, SELFPAY ==
--- NOTE | ~2024-11-21 | XR_ITS ---
EXAMINATION: XR CHEST CLINICAL INFORMATION: Cough/abnormal chest CT COMPARISON: May 29, 2024 x-ray and CT on November 14, 2024 TECHNIQUE: 2 views of the chest were obtained. FINDINGS: Lung volumes are mildly decreased. Lungs are clear with distinct pulmonary vascularity. No hilar abnormality is evident. Heart size is within normal limits. There is no blunting of the costophrenic angles. XR/XR chest 2V IMPRESSION: No acute disease Electronically signed by: Harjit Horne MD 11/21/2024 01:07 PM EDT
== END 2024-11-21 12:43 | disposition home or self-care (01) ==
LOC: HO.XRAY 12:42
PROVIDERS: PCP Internal Medicine; Visit Provider Internal Medicine
DX: R05.9 Cough, unspecified (principal)
CPT/HCPCS: 71046

== ENCOUNTER → 2024-11-21 12:48 | Outpatient (BNV) | payer MEDICARE, MEDICAID, SELFPAY | PROVIDERS: PCP Internal Medicine; Visit Provider Radiology Diagnostic Radiology | DX: R05.9 Cough, unspecified (principal); R91.8 Other nonspecific abnormal finding of lung field | CPT/HCPCS: 71046 ==

== ENCOUNTER 2024-12-12 14:16 | Outpatient (REF) | payer MEDICARE, MEDICAID, SELFPAY ==
--- OUTSIDE RECORDS SUMMARY | 2024-12-12 16:13 | XMS_ITS | Encounter Summary ---
Author Organization [facility] Address [address] [place] [address] Care Team Providers Care Animal Ride Attendant Name Role Phone Jenna Osborn MD Primary Care Provider Nguyen Clarke MD Primary Care Provider Encounter Details Date Type Department Care Team Description 09/23/2011 Business Doc Medical Records [address] [place] [id number] Abstract, Provider Social History Tobacco Use Types [...] on filedocumented in this encounter Care Teams Animal Ride Attendant Relationship Specialty Start Date End Date Jenna Osborn MD PCP - General Internal Medicine 09/01/11 01/29/15 Nguyen Cantrell MD [address] [place] [id number] PCP - General Internal Medicine 01/30/15 documented as of this encounter
[2024-12-12 16:53] LABS: Resp Syncy Virus RNA Qual PCR NEGATIVE (Negative); SARS COV2 PCR INHOUSE POSITIVE (Negative)
== END 2024-12-12 14:17 | disposition home or self-care (01) ==
LOC: HO.LNP 14:16
PROVIDERS: PCP Internal Medicine; Visit Provider Physician Assistant Medical
DX: J06.9 Acute upper respiratory infection, unspecified (principal); J02.9 Acute pharyngitis, unspecified; R05.9 Cough, unspecified; R51.9 Headache, unspecified; Z13.89 Encounter for screening for other disorder
CPT/HCPCS: 87637; 87880; 99212

== ENCOUNTER 2024-12-12 14:16 | Outpatient (AMB) | payer MEDICARE, MEDICAID, SELFPAY ==
[2024-12-12 14:33] VITALS: BP 102/70; PULSE 76; TEMP 37.5; O2SAT 96; BMI 27.4
--- NOTE | 2024-12-12 14:33 | AM.OFFWIN_ITS ---
Intake Vital Signs 12/12/24 14:33 Height 5 ft 7 in Weight 175 lb BMI 27.4 BP 102/70 Blood Pressure Location Lt brachial Position Sitting Pulse 76 Pulse Source Pulse Oximeter Temp 99.5 F Temp Source Oral Pulse Oximetry (%) 96 Oxygen Delivery Method Room Air Intake Visit Reasons: EP-sore throat, headache, body ache, cough Intake Note: presents with sore throat, painful swallowing, headache, body aches, productive cough Patient Tobacco Use Status: Never used Tobacco Allergies diphenhydramine (From BENADRYL) Allergy (Intermediate, Verified 12/12/24 14:37) RASH Penicillins (PENICILLINS) Allergy (Intermediate, Verified 12/12/24 14:37) RASH LAUGHING GAS Allergy (Intermediate, Uncoded 10/18/24 12:51) RASH/HIVES/SWELLING Do you need a note to return to daycare/school/sports/work: No HPI HPI Comments History of Present Illness Details History - The patient is a 49-year-old female pr esenting with headache, sore throat, and cough. - Reports severe headache, described as a migraine, unresponsive to ibuprofen. - Sore throat began after exposure to ra in, with pain on swallowing and coughing. - Experienced fever, noted warm skin, us ed ice packs for relief, but did not measure temperature. - Cough is sometimes productive, unrespo nsive to kvad-[id number]-[id number] medications. - Dizziness possibly due to not eating w hile taking medication. - She has taken Motrin for her headache with no relief. - She denies sick contacts, travel, CP, SOB, abd pain, n/v/d. Physical Exam General: Cooperative, healthy appearing, comfortable and no acute distress Orientation/consciousness: Patient oriented x3 Limitations: No limitations Head: Normal to inspection Ears: Hearing grossly normal bilaterally, external ears normal and TM's normal bilaterally Nose: Normal external nose present, normal nares present, and no nasal discharge present. Face and sinus: Sinuses nontender to palpation. Mouth: Normal oral and palatal mucosa present and moist mucous membranes noted. Throat: Tonsils normal. Uvula is midline. Posterior oropharynx with erythema and no exudates. Eyes: Appearance normal, both eyes and all related structures Neck: Normal visual inspection, full ROM. No lymphadenopathy noted. Respiratory: Clear to auscultation bilaterally. Normal respiratory effort, able to speak in complete sentences. No respiratory distress, not tachypneic, no tripod positioning and no use of accessory muscles. Cardiovascular: Regular rate and rhythm. Normal S1 and S2 Skin: Warm to touch, no rashes or lesions noted Patient was informed and verbally consented to the use of an ambient scribe for clinic note documentation during this visit [facility] Medical History Anxiety and depression Gallbladder cancer, carcinoma Adhesive capsulitis of right shoulder Adhesive capsulitis of left shoulder Vitamin D deficiency Anxiety disorder [place] disease Breast cancer, BRCA1 positive Surgical History History of colonoscopy History of cholecystectomy H/O bilateral mastectomy History of hysterectomy with bilateral oophorectomy Family History Father Prostate cancer Paternal Aunt Breast cancer Maternal Grandmother Alzheimer's dementia Mother Endometrial cancer Son No problems noted. Social History Household Members: None Housing: Apartment Are you a primary acute care registered nurse to a significant other at home: No Do you presently have visiting nurse or other home services: No Alcohol intake: never Patient Tobacco Use Status: Never used Tobacco e-Cigarette/Vaping Use: Never Used service: No Current occupational status: unemployed Gender identity: Female Cognitive needs: No Hearing needs: No Vision needs: No Female Reproductive History Menstrual Age of Menarche: 11 Review of Systems Const All systems reviewed & are unremarkable except as noted in HPI and below Physical Exam Vital Signs: Last Vital Signs Temp 99.5 F 12/12/24 14:33 Pulse 76 12/12/24 14:33 BP 102/70 12/12/24 14:33 Pulse Ox 96 12/12/24 14:33 Oxygen Delivery Method Room Air 12/12/24 14:33 BMI result Body Mass Index 27.4 Results AMB Rapid Strep AMB Rapid Strep Negative Last Edit by Ksenia Bee MA on 12/12/24 15:00 Results Reviewed Results Reviewed: Laboratory Last Values Strep Scn Rapid Clinic Negative 12/12/24 14:46 Assessment & Plan Assessment & Plan (1) URI with cough and congestion: Code(s): J06.9 - Acute upper respiratory infection, unspecified Plan Most likely URI vs covid vs flu vs RSV vs viral illness rapid is negative in the office Plan - Conduct swab test for influenza and RSV to confirm viral infection. - Prescribe naproxen for headache management as ibuprofen was ineffective. - Prescribe cough medicine in pill form to avoid nausea from liquid formulations. - Recommend nasal spray and decongestant to alleviate symptoms. - VSS, pt well appearing - will call with results - follow up with PCP Orders: Orders AMB Rapid Strep Screen Today Z13.9 - Encounter for screening, unspecified SARS-CoV2/FLU/RSV Today R09.89 - Other specified symptoms and signs involving the circulatory and respiratory systems Medications: New benzonatate 100 mg PO bid-tid PRN 21 caps 0RF Cough 7 days fluticasone propionate 50 mcg/actuation administer into each nostril 1 spray intranasal Q12H 16 grams 0RF naproxen 500 mg PO Q12H PRN 20 tabs 0RF pain 7 days cetirizine-pseudoephedrine 5-120 mg ER 1 tab PO BID 14 tabs 0RF 7 days Coding Level of Care Code Est Pt Level 3 (25247) Diagnoses URI with cough and congestion J06.9
--- OUTSIDE RECORDS SUMMARY | 2024-12-12 14:56 | XMS_ITS | Clinical Summary ---
Author Organization [facility] Address [address] [place] [id number] Phone Care Team Providers Care Promotion Writer Name Role Phone RowanShane DO Unavailable Eli Dobbins MD Unavailable [phone] America Stack MD Unavailable America Stack MD Primary Care Provider Elizabet Elias Unavailable [phone] Allergies Active Allergy Reactions Criticality Noted Date Comments Diphenhydramine-Phenylephrine Rash Low 2019 Penicillins GI Upset 09/14/2011 Pramoxine-Menthol GI Upset 09/14/2011 Medications hydrOXYzine HCl (ATARAX) 10 MG tablet Take 10 mg by mouth as needed. 6 Active gabapentin (NEURONTIN) 300 MG capsule Take 300 mg by mouth 2 (two) times a day. Active oxyCODONE 5 MG immediate release tablet Take 1 tablet (5 mg total) by mouth every 6 (six) hours as needed for moderate pain. Pt. may request partial fill 15 tablet 9 Active Additional Information Patient not taking.Reported on 03/19/2020 acetaminophen (TYLENOL) 325 mg tablet Take 2 tablets (650 mg total) by mouth every 4 (four) hours as needed for mild pain. 0 0 Active ibuprofen (ADVIL,MOTRIN) 200 MG tablet Take 2 tablets (400 mg total) by mouth every 6 (six) hours as needed for pain (specific location in comments). 0 Active oxyCODONE 5 MG immediate release tablet Take 1 tablet (5 mg total) by mouth every 4 (four) hours as needed for moderate pain. Partial fill ok 20 tablet 0 Active Additional Information Patient not taking.Reported on 04/18/2020 oxyCODONE (ROXICODONE) 5 MG immediate release tablet Take 1 tablet (5 mg total) by mouth every 4 (four) hours as needed for moderate pain. Partial fill ok 25 tablet 0 Active Active Problems Patient Care Coordination No te Formatting of this note migh t be different from the original. Height 171.5cm shoes on at pt request taken by OC 03/08/19 Problem Noted Date Diagnosed Date Cancer of gallbladder 04/18/2020 Mass of gallbladder 03/19/2020 Chronic pain of both shoulders 02/09/2019 Assessment & Plan (02/09/2019 4:11 PM EDT): Lisandra is still with bilateral shoulder pain, the left somewhat improved, the right worse. She still gets some swelling of her arms. She still gets a burning sensation. She has done PT, OT, shoulder injections, the pain clinic, and is taking gabapentin. She has been trying to live with this pain for over a year now and is not sure she can undergo the pain of the injections any longer. The pain wakes her at night. Her gabapentin is 300 mg in the morning and 300 mg at night. I have recommended she try switching to 300 mg in the morning and 600 mg at night to see if that helps. She has researched undergoing general surgery and having manipulations of the shoulders. We discussed consideration of more lymphatic massage, more injections taking Ativan prior to visit and getting only one injection at a time, CBD although she does not feel she can afford that, increasing the gabapentin, seeing orthopedics for shoulder manipulation under anesthesia, and/or seeing Tray Sharp (who I will speak to) of paliative care, previously of pain management, regarding her chronic pain. Change in bowel habits 03/29/2018 Assessment & Plan (03/29/2018 4:07 PM EST): The patient has had a change in bowel habits with abdominal pain and bloating. I have left a message with Dr. Mccall of GI to see if he will evaluate her. Consider colonoscopy. Abdominal bloating 03/29/2018 Assessment & Plan (03/29/2018 3:46 PM EST): The patient complains of abdominal bloating and pain with a change in bowels. I have left a message with Dr. Mccall of GI to see if he will evaluate her, consider colonoscopy. Gilbert's syndrome 10/07/2017 Assessment & Plan (03/29/2018 3:49 PM EST): The patient's Gilbert's syndrome may affect the presenting issue of surgical procedure (s) and may increase the risk of slow healing wound (s), infection (s), kidney, lung and/or heart problems. Stable and/or controlled chronic conditions may reduce complications associated with your chronic condition (s). Assessment & Plan (10/07/2017 11:19 AM EDT): The patient's Gilbert's syndrome may affect the presenting issue of surgical procedure (s) and may increase the risk of slow healing wound (s), infection (s), kidney, lung and/or heart problems. Stable and/or controlled chronic conditions may reduce complications associated with your chronic condition (s). Pancreatic abnormality 10/07/2017 Assessment & Plan (10/07/2017 4:04 PM EDT): The patient has had an MRI in August showing an abnormality of the pancreas. Possibilities for this might be subtle autoimmune pancreatitis, sequela of prior pancreatitis, and potentially lymphoma. This does not have the appearance of infiltrating pancreatic ductal adenocarcinoma. Short-term follow-up was recommended. We discussed these findings. She could get an endoscopic ultrasound done, which she declines. She could get another MRI in 3-6 months which she agrees with. For now she has agreed to lab work and repeat MRI in a few months. Abnormal magnetic resonance imaging of abdomen 0 10/07/2017 Assessment & Plan (10/07/2017 4:25 PM EDT): Impression on abdominal MRI: As on the CT, there is a subtle capsule-like rim involving the pancreatic head and uncinate process with subtle signal changes in the head and uncinate process. Duct is diffusely small in caliber along its course. Subtle autoimmune pancreatitis, sequela of prior pancreatitis, and potentially lymphoma are possibilities. This does not have the appearance of infiltrating pancreatic ductal adenocarcinoma. Short-term follow-up is recommended. Subtle irregular contours of the biliary tree, nonspecific. These changes can be seen with autoimmune pancreatitis as well as sclerosing cholangitis. Hepatomegaly with evidence of steatosis. Cholelithiasis. We discussed getting an endoscopic ultrasound which the patient declines. She does agree to repeat MRI in a number of months. Calculus of gallbladder with acute on chronic cholecystitis without obstruction 10/07/2017 Assessment & Plan (10/11/2018 12:39 PM EDT): The patient has had RUQ abdominal pain and known gallstones. I had a conversation with the patient today with regard to cholecystectomy. The risks and benefits of gallbladder surgery including but not limited to the risks of infection, bleeding, need for open surgery, failure to alleviate pain/symptoms, damage to common bile duct, damage to surrounding organs, need for other major reconstructive surgery as well as the heart/lung risks of general anesthesia have been explained to the patient. The patient understands these risks. I have offered her cholecystectomy either now or after her upcoming upper and lower endoscopy in November and she will wait until that testing has been completed. Assessment & Plan (10/07/2017 4:03 PM EDT): The patient has had RUQ abdominal pain after eating. Gallstones were seen on MRI. We discussed this finding as well as an abnormality of the pancreas and hepatomegaly. I had a conversation with the patient today with regard to gallbladder surgery. The risks and benefits of gallbladder surgery including but not limited to infection, bleeding, need for open surgery, failure to alleviate pain/symptoms particularly given the abnormalities on MRI which could be causing some of her symptoms, damage to common bile duct, damage to surrounding organs, need for other major reconstructive surgery as well as the heart/lung risks of general anesthesia have been explained to the patient. She is considering and will let us know. History of breast cancer in female 10/07/2017 Assessment & Plan (10/11/2018 12:37 PM EDT): Lisandra is BRCA positive with a history of breast cancer, and has now undergone bilateral mastectomy in 2016 with reconstruction as well as capsulotomy. She has undergone oophorectomy as well. She has had some right axillary swelling. MRI was ordered following her last appointment in March 2018 and was rated bi-rads 2. Ultrasound will be ordered to evaluate ?adenopathy/?lymphedema. Assessment & Plan (03/29/2018 3:40 PM EST): The patient with a history of breast cancer, BRCA positive, and s/p bilateral mastectomy has irregularities of the chest wall which could represent recurrent malignancy. She also has fullness to the right axilla. Plan is for MRI of the chest wall. Assessment & Plan (10/07/2017 4:19 PM EDT): This patient who is BRCA positive has undergone bilateral mastectomy in 2016 with reconstruction as well as capsulotomy. She has also had oophorectomy. She will be following up with Dr. Mendoza in October. Abdominal pain, right upper quadrant 10/07/2017 Chronic left shoulder pain 10/07/2017 Assessment & Plan (03/29/2018 3:51 PM EST): The patient says that her left frozen shoulder s/p mastectomy is slowly improving. Assessment & Plan (10/07/2017 4:24 PM EDT): The patient feels she has only had a small amount of improvement in her left shoulder with physical therapy. I have recommended she find out from PT or Dr. Linda where she might get a second opinion for mobilization of her shoulder. BRCA positive 10/07/2017 Assessment & Plan (03/29/2018 3:48 PM EST): The patient has undergone bilateral mastectomy and bilateral oophorectomy. Status post bilateral mastectomy 06/23/2017 Assessment & Plan (10/11/2018 12:41 PM EDT): S/p bilateral mastectomy in 2016. Deformity due to mastectomy 06/23/2017 Family History Medical History Relation Comments Heart disease Father Prostate cancer Father Endometrial cancer Mother Breast cancer Unspecified an aunt under ag e 50 Relation Status Comments Father Mother Unspecified Social History Tobacco Use Types Packs/Day Years Used Date Smoking Tobacco: Never Smokeless Tobacco: Never Alcohol Use Standard Drinks/Week Comments No 0 (1 standard drink = 0.6 oz pur e alcohol) Education Answer Date Recorded Are you interested in more education? Not on blaine e 09/04/2022 Are you concerned about learning? Not on file 09/04/2022 No 09/04/2022 No 09/04/2022 Digital Access Answer Date Recorded No 10/02/2022 No 10/02/2022 Reliable internet access at home? Not on file 10/02/2022 Device with a working camera? Not on file Comments No Sex and Gender Information Value Date Recorded Sex Assigned at Female 09/07/2018 6:16 AM EDT Legal Sex Female 9:30 PM EDT Gender Identity Female 09/07/2018 6:16 AM EDT Sexual Orientation Straight 09/07/2018 6: 16 AM EDT Last Filed Vital Signs Vital Sign Reading Time Taken Comments Blood Pressure 119/79 04/18/2020 3:57 PM EST Pulse 77 04/18/2020 3:57 PM EST Temperature 36.9 C (98.5 F) 04/18/2020 3:57 PM EST Respiratory Rate 16 04/01/2020 3:11 PM EST Oxygen Saturation 98% 04/18/2020 3:57 PM EST Inhaled Oxygen Concentration - - Weight 79.4 kg (175 lb) 04/03/2020 11:06 AM EST Height 170.2 cm (5' 7 ) 04/03/2020 11:06 AM EST Body Mass Index 27.41 04/03/2020 11:06 AM EST Plan of Treatment Health Maintenance Due Date Last Done Comments Adult Td,Tdap Booster 1974 LIPID PANEL 1974 DEPRESSION SCREENING 1986 HEPATITIS C SCREENING 02/16/1992 HIV ONE-TIME SCREENING (18-6 5 YEARS) 02/16/1992 PNEUMOCOCCAL VACCINES (50+ y ears) (1 of 2 - PCV) 1993 ZOSTER VACCINES (1 of 2) 1993 PAP SMEAR 1995 COLOGUARD 2019 COLONOSCOPY 2019 COLORECTAL CANCER SCREENING 2019 FIT TEST 2019 FOBT 2019 SIGMOIDOSCOPY 2019 VIRTUAL COLONOSCOPY 2019 COVID-19 VACCINE (2023-2 5 season) 2024 09/04/2020 SMOKING STATUS SCREENING (On ce After 26 Yrs) Completed 04/18/2020 HEPATITIS A VACCINES Aged Out No long er eligible based on patient's age to complete this topic HIB VACCINES Aged Out No longer eligi ble based on patient's age to complete this topic MENINGOCOCCAL VACCINES (ACWY) Aged Out No longer eligible based on patient's age to complete this topic MENINGOCOCCAL VACCINES (B) Aged Out N o longer eligible based on patient's age to complete this topic Medical Devices Not on file Insurance MEDICARE PART A & B [facility] MEDICARE PART A & B [facility] [place] [id number] MEDICARE PART A & [place] [id number] MEDIC[place] [id number] MEDICARE PART [place] [id number] MEDICARE PART A & B [place] A & B [facility] MEDICARE PART A & B [place] MEDIC[place] PART A & B [facility] Advance Directives For more information, please contact: [phone] (9AM - 5PM [facility], Wednesday-Wednesday) * Full Code (Latest Code Status on File) Date Activated Date Inactivated Comments 04/01/2020 10:22 AM Question Answer Comments Code Status Confirmed With: Patient Care Teams Promotion Writer Relationship Specialty Start Date End Date America Stack MD [address] [place] [id number] PCP - General Internal Medicine 03/04/17 Shane Linda DO [address] [place] [address] Orthopedics & Sports Medicine, [place] [address] Historical LMR Provider 02/23/17 Eli Dobbins MD [address] [place] [address], [address] [place] [id number] Historical LMR Provider 02/23/17 America Stack MD [address] [place] [address] Historical LMR Provider 02/23/17 Elizabet Elias [address] [place] [id number] [email or web address] .[email or web address] Genetic Counselor Genetics 04/25/20 Additional Source Comments The information contained in this document represents components of the legal health record. It is not the complete legal health record.[facility]
== END 2024-12-12 16:09 | disposition home or self-care (01) ==
PROVIDERS: PCP Internal Medicine; Visit Provider Physician Assistant Medical
DX: J06.9 Acute upper respiratory infection, unspecified (principal); Z13.9 Encounter for screening, unspecified

== ENCOUNTER 2025-01-02 15:48 | Outpatient (AMB) | payer MEDICARE, MEDICAID, SELFPAY ==
--- NOTE | 2025-01-02 16:23 | AM.OFFWIN_ITS ---
Intake Vital Signs 01/02/25 16:24 Height 5 ft 7 in Weight 175 lb BMI 27.4 BP 108/62 Blood Pressure Location Lt brachial Position Sitting Pulse 72 Pulse Source Pulse Oximeter Temp 98.2 F Temp Source Oral Pulse Oximetry (%) 97 Oxygen Delivery Method Room Air Intake Visit Reasons: EP- prolonged coughing Intake Note: pt presents with unresolving non productive cough, chest congestion/discomfort Patient Tobacco Use Status: Never used Tobacco Allergies diphenhydramine (From BENADRYL) Allergy (Intermediate, Verified 01/02/25 16:24) RASH Penicillins (PENICILLINS) Allergy (Intermediate, Verified 01/02/25 16:24) RASH LAUGHING GAS Allergy (Intermediate, Uncoded 10/18/24 12:51) RASH/HIVES/SWELLING HPI HPI Comments History of Present Illness Details This is a 49-year-old female presenting for evaluation of a prolonged cough since being diagnosed with COVID-19 on December 12, 2024. Patient states that she has a nonproductive cough that has not responded to Tessalon Perles. Patient states she is drinking rosendo tea daily. She denies having any fevers, chills, hemoptysis, chest pain or shortness of breath. Patient is requesting antibiotic therapy. [facility] Medical History Anxiety and depression Gallbladder cancer, carcinoma Adhesive capsulitis of right shoulder Adhesive capsulitis of left shoulder Vitamin D deficiency Anxiety disorder [place] disease Breast cancer, BRCA1 positive Surgical History History of colonoscopy History of cholecystectomy H/O bilateral mastectomy History of hysterectomy with bilateral oophorectomy Family History Father Prostate cancer Paternal Aunt Breast cancer Maternal Grandmother Alzheimer's dementia Mother Endometrial cancer Son No problems noted. Social History Household Members: None Housing: Apartment Are you a primary career resource specialist to a significant other at home: No Do you presently have visiting nurse or other home services: No Alcohol intake: never Patient Tobacco Use Status: Never used Tobacco e-Cigarette/Vaping Use: Never Used service: No Current occupational status: unemployed Gender identity: Female Cognitive needs: No Hearing needs: No Vision needs: No Female Reproductive History Menstrual Age of Menarche: 11 Review of Systems Const All systems reviewed & are unremarkable except as noted in HPI and below Denies chills, Denies fatigue, Denies fever(s), Denies headache(s) and Reports malaise Eyes Reports no additional complaints ENT Reports no additional complaints and Denies headache(s) Card Reports no additional complaints, Denies dyspnea and Denies dyspnea on exertion Resp Reports no additional complaints, Reports cough, Denies hemoptysis, Denies dyspnea, Denies dyspnea on exertion and Denies wheezing GI Reports no additional complaints Reports no additional complaints Musc Reports no additional complaints Skin/Breast Reports system reviewed and no additional complaints, except as documented Neuro Denies headache(s) Psych Reports no additional complaints Endo Reports no additional complaints and Denies fatigue Aller/Immun Reports no additional complaints and Denies wheezing Physical Exam Vital Signs: Last Vital Signs Temp 98.2 F 01/02/25 16:24 Pulse 72 01/02/25 16:24 BP 108/62 01/02/25 16:24 Pulse Ox 97 01/02/25 16:24 Oxygen Delivery Method Room Air 01/02/25 16:24 BMI result Body Mass Index 27.4 Patient is afebrile and is not tachycardic, hypoxic or tachypneic. Const General: cooperative, healthy appearing, comfortable, no acute distress, well developed, alert, awake and Physically active Nutritional Appearance: average body habitus Orientation/consciousness: patient oriented x3 Limitations: no limitations Neck Lymphatic: no lymphadenopathy noted Resp Effort & Inspection: normal respiratory effort, able to speak in complete sentences, no audible wheezes, no cough, respiratory effort not decreased, not labored, no nasal flaring and not tachypneic Auscultation: clear to auscultation bilaterally, no crackles, no rales, no rhonchi, no wheezes and lung sounds not diminished Cardio Rate: regular rate Rhythm: regular rhythm Skin General skin exam: no rashes or lesions noted Neuro General: patient oriented x3 Psych Appearance: grossly normal Mental Status: mental status grossly normal Insight: Limited insight present (Psych) Judgement: Fair judgement present (Psych) Assessment & Plan Assessment & Plan (1) Subacute cough: Comment: Patient is seen and evaluated. Chest x-ray from November 2024 is reviewed as well as viral panel from December 12, 2024. Patient will be prescribed guaifenesin to take twice daily and encouraged to add honey to her rosendo tea and increase clear fluids daily. Code(s): R05.2 - Subacute cough Plan: Imaging is deferred at this time. Guaifenesin twice daily as prescribed, increase clear fluids daily and tea with honey at least twice daily. Medications: New guaifenesin ER 600 mg PO BID 20 tabs 0RF Coding Level of Care Code Est Pt Level 3 (81837) Diagnoses Subacute cough R05.2 Time Spent (min) 20
[2025-01-02 16:24] VITALS: BP 108/62; PULSE 72; TEMP 36.8; O2SAT 97; BMI 27.4
--- OUTSIDE RECORDS SUMMARY | 2025-01-02 16:36 | XMS_ITS | Encounter Summary ---
Author Organization [facility] Address [address] [place] [id number] Phone Care Team Providers Care Financial Reporting Specialist Name Role Phone Lisa Solomon Kvng GANDHI Unavailable [phone] Christian Nguyen MD Unavailable [email or web address] Sydney Zimmerman MD Unavailable [phone] Shane Linda DO Unavailable [phone] Eli Dobbins MD Unavailable [phone] America Stack MD Unavailable Low Mendoza MD Unavailable Suni Guerrero MD Unavailable + [phone] America Stack MD Primary Care Provider Eliazbet Elias Unavailable [phone] Reason for Referral * MRI/CAT Scan - Closed Specialty Diagnoses / Procedures Referred By Contac t Referred To Contact Radiology Diagnoses Pancreatic lesion Procedures MRI Abdomen MRI PELVIS (GI/) America Stack MD Phone: tel: fax: Referral ID Status Reason Start Date Expiration Date Visits Re quested Visits Authorized [id number] Closed 08/24/2017 08/24/2018 1 1 Encounter Details Date Type Department Care Team (Late st Contact Info) Description 08/24/2017 Ancillary Orders Virtual Department [address] [place] [address] America Stack MD [facility] [place] [address] Pancreatic lesion Social History Tobacco Use Types Packs/Day Years Used Date Smoking Tobacco: Never Smokeless Tobacco: Never Alcohol Use Standard Drinks/Week Comments No 0 (1 standard drink = 0.6 oz pur e alcohol) Comments Unknown Sex and Gender Information Value Date Recorded Sex Assigned at Female 09/07/2018 6:16 AM EDT Legal Sex Female 9:30 PM EDT Gender Identity Female 09/07/2018 6:16 AM EDT Sexual Orientation Straight 09/07/2018 6: 16 AM EDT documented as of this encounter Plan of Treatment Not on file documented as of this encounter Results * MRI ABDOMEN (PANCREAS) WITH AND WITHOUT CONTRAST (08/30/2017 12:22 PM EDT) Anatomical Region Laterality Modality Abdomen Magnetic Resonan ce 08/30/2017 3:06 PM EDT Impressions 08/30/2017 5:21 PM EDT As on the CT, there is a [...] cholangitis. Hepatomegaly with evidence of steatosis. Cholelithiasis. POS [id number] Edited by: Myla Her on 08/30/2017 3:53 PM Narrative 08/30/2017 5:21 PM EDT HISTORY: See above. COMPARISON: None CORRELATION: Abdominal CT 07/22/2017 TECHNIQUE: Exam performed on a 1.5 Lupe high-field MRI scanner. Axial T1 in and out of phase, T1 with fat suppression and T2 with fat suppression, coronal T1 in and out of phase and T1 with fat suppression, followed by post-gadolinium multi-phase T1 series with fat suppression and coronal T1 with fat suppression sequences were obtained. Radial thick slab MRCP, coronal oblique thin section MRCP sequences were obtained. Reformatted axial and cholangiographic MIP images are available for review. FINDINGS: Liver: Mildly enlarged measuring 19 cm in craniocaudad extent. No lobar architectural changes of cirrhosis. Diffuse drop in signal of the parenchyma on opposed phase imaging from steatosis. There are some areas of relative sparing in the left hepatic lobe and around the gallbladder. No lesion detected. Gallbladder/biliary: 2.0 cm dark signal structure within the gallbladder compatible with a gallstone. No biliary ductal dilatation. Subtle contour irregularity of the common bile duct and intrahepatic ducts which could be related to subtle strictures. No filling defects within the biliary tree. Spleen: No abnormality detected. Pancreas: Head and uncinate process are slightly hypointense to the remainder of the pancreas on T1-weighted images and degree of enhancement may be slightly less than the remainder of the pancreas. There is subtle capsule-like rim of T1 and T2 hypointensity involving the head and uncinate process which appears to show subtle enhancement. The remainder of the pancreas is unremarkable. Pancreatic duct is diffusely small in caliber without evidence of divisum. Adrenal glands: No masses. Kidneys/ureters: No hydronephrosis or focal lesions. Vasculature: Hepatic veins and portal vein patent. Abdominal aorta has normal caliber. Peritoneum: No significant ascites or organized collections. Lymph nodes: No lymphadenopathy detected. Body wall: Partially imaged postsurgical changes from right breast lumpectomy.. Probable post-surgical changes involving the abdominal wall. Bowel: Small hiatal hernia. Nonobstructed pattern. Large volumes of stool in the colon. Lower Thorax: No infiltrate in the basal lungs. No pleural or pericardial effusions. Bones: No destructive lesion. Procedure Note Arley Barrios MD - 08/30/2017 HISTORY: See above. COMPARISON: None CORRELATION: Abdominal CT 07/22/2017 TECHNIQUE: Exam performed on a 1.5 Lupe high-field MRI scanner. Axial T1in and out of phase, T1 with fat suppression and T2 with fat suppression,coronal T1 in and out of phase and T1 with fat suppression, followed bypost-gadolinium multi-phase T1 series with fat suppression and coronal T1with fat suppression sequences were obtained. Radial thick slab MRCP,coronal oblique thin section MRCP sequences were obtained. Reformattedaxial and cholangiographic MIP images are available for review. FINDINGS: Liver: Mildly enlarged measuring 19 cm in craniocaudad extent. No lobararchitectural changes of cirrhosis. Diffuse drop in signal of theparenchyma on opposed phase imaging from steatosis. There are some areasof relative sparing in the left hepatic lobe and around the gallbladder.No lesion detected. Gallbladder/biliary: 2.0 cm dark signal structure within the gallbladdercompatible with a gallstone. No biliary ductal dilatation. Subtlecontour irregularity of the common bile duct and intrahepatic ducts whichcould be related to subtle strictures. No filling defects within thebiliary tree. Spleen: No abnormality detected. Pancreas: Head and uncinate process are slightly hypointense to theremainder of the pancreas on T1-weighted images and degree of enhancementmay be slightly less than the remainder of the pancreas. There is subtlecapsule-like rim of T1 and T2 hypointensity involving the head anduncinate process which appears to show subtle enhancement. The remainderof the pancreas is unremarkable. Pancreatic duct is diffusely small incaliber without evidence of divisum. Adrenal glands: No masses. Kidneys/ureters: No hydronephrosis or focal lesions. Vasculature: Hepatic veins and portal vein patent. Abdominal aorta hasnormal caliber. Peritoneum: No significant ascites or organized collections. Lymph nodes: No lymphadenopathy detected. Body wall: Partially imaged postsurgical changes from right breastlumpectomy.. Probable post-surgical changes involving the abdominalwall. Bowel: Small hiatal hernia. Nonobstructed pattern. Large volumes ofstool in the colon. Lower Thorax: No infiltrate in the basal lungs. No pleural orpericardial effusions. Bones: No destructive lesion. IMPRESSION: As on the CT, there is a subtle capsule-like rim involving the pancreatichead and uncinate process with subtle signal changes in the head anduncinate process. Duct is diffusely small in caliber along its course.Subtle autoimmune pancreatitis, sequela of prior pancreatitis, andpotentially lymphoma are possibilities. This does not have the appearanceof infiltrating pancreatic ductal adenocarcinoma. Short-term follow-up isrecommended. Subtle irregular contours of the biliary tree, nonspecific. These changescan be seen with autoimmune pancreatitis as well as sclerosingcholangitis. Hepatomegaly with evidence of steatosis. Cholelithiasis. POS [id number] Edited by: Myla Her on 08/30/2017 3:53 PM America Stack MD IMG MR ABDOMEN Final Result documented in this encounter Visit Diagnoses Diagnosis Pancreatic lesion Pancreatic lesion documented in this encounter Care Teams Financial Reporting Specialist Relationship Specialty Start Date End Date America Stack MD [facility] [place] [address] PCP - General Internal Medicine 03/04/17 Lisa Solomon DO [address] [place] [address] [email or web address] Historical LMR Provider 02/23/17 05/17/21 Chrsitian Nguyen MD [email or web address] Historical LMR Provider 02/23/17 05/17/21 Sydney Zimmerman MD [address] [place] [address] Historical LMR Provider 02/23/17 Shane Linda DO [address] [place] [address] Orthopedics & Sports Medicine, [place] [address] [email or web address] Historical LMR Provider 02/23/17 Eli Dobbins MD [address] [place] [address], [address] [place] [address] Historical LMR Provider 02/23/17 America Stack MD [address] [facility] [place] [address] Historical LMR Provider 02/23/17 Low Mendoza MD [address] [place] [address] [email or web address] Historical LMR Provider 02/23/17 05/17/21 Suni Guerrero MD [address] [place] [address] Historical LMR Provider 02/23/17 2 Elizabet Elias [address] [place] [address] [email or web address] Genetic Counselor Genetics 04/25/20 documented as of this encounter Additional Source Comments The information contained in this document represents components of the legal health record. It is not the complete legal health record.[facility]
--- OUTSIDE RECORDS SUMMARY | 2025-01-02 16:36 | XMS_ITS | Encounter Summary ---
Author Organization [facility] Address [address] [place] [address] Phone Care Team Providers Care Voip Engineer Name Role Phone Lisa Solomon Angie GANDHI Unavailable [phone] Christian Nguyen MD Unavailable [email or web address] Sydney Zimmerman MD Unavailable [phone] Shane Linda DO Unavailable [phone] Eli Dobbins MD Unavailable [phone] America Stack MD Unavailable Low Mendoza MD Unavailable Suni Guerrero MD Unavailable + [phone] America Stack MD Primary Care Provider Elizabet Elias Unavailable [phone] Reason for Referral * MRI/CAT Scan - Closed Specialty Diagnoses / Procedures Referred By Vanessa harper Referred To Contact Radiology Diagnoses Elevated alkaline phosphatase level Elevated bilirubin Procedures MRI Abdomen Melissa Polk PA-C Phone: tel: fax: [email or web address] Referral ID Status Reason Start Date Expiration Date Visits Re quested Visits Authorized [id number] Closed 06/02/2018 06/02/2019 1 1 Encounter Details Date Type Department Care Team (Late st Contact Info) Description 06/02/2018 Ancillary Orders Virtual Department [address] [place] [address] Melissa Polk PA-C [address] [place] [address] [email or web address] Elevated alkaline phosphatase level; Elevated bilirubin Social History Tobacco Use Types Packs/Day Years [...] of this encounter Results * MRI ABDOMEN WITH AND WITHOUT CONTRAST (06/21/2018 8:53 AM EST) Anatomical Region Laterality Modality Abdomen Magnetic Resonan ce 06/21/2018 5:01 PM EST Impressions 06/21/2018 5:44 PM EST 1. Stable appearance of the pancreas when compared with 08/30/2017 MRI. Subtle capsule-like area of altered signal in the pancreatic head and uncinate process. Could reflect autoimmune pancreatitis or sequela from old pancreatitis. 2. No new findings in the abdomen. 3. Solitary gallstone. No biliary ductal dilatation or choledocholithiasis. 4. Fatty infiltration of the liver. POS [id number] Edited by: Alexandra Narayan on 06/21/2018 5:39 PM Narrative 06/21/2018 5:44 PM EST EXAM: MRI ABDOMEN WITH AND WITHOUT CONTRAST HISTORY: Elevated alkaline phosphatase level and bilirubin. COMPARISON: 08/30/2017 MRI abdomen. TECHNIQUE: Standard MRI abdomen with and without contrast. Standard MRCP with thin section MRCP images with reconstructed thick slab sections. Postcontrast dynamic phase imaging of the abdomen following 16 mL Dotarem contrast IV. FINDINGS: Liver: The right lobe of the liver measures 19 cm in sagittal dimension. Normal contour of the liver. No evidence for cirrhosis. Diffuse drop in signal on the [id number] sequence compared with the in-phase T1 sequence compatible with diffuse fatty infiltration. There is no liver mass or suspicious enhancement in the liver. Spleen: Normal in size and signal, measures a maximum of 10.6 cm. Gallbladder/biliary: There is a solitary almost 2 cm T2 dark signal gallstone. There is no gallbladder wall thickening or surrounding fluid. No intrahepatic or extrahepatic biliary ductal dilatation. No evidence for choledocholithiasis. No filling defects within the biliary tree. Pancreas: No pancreatic ductal dilatation. Unchanged compared with the prior MRI dated 08/30/2017, there is a subtle vague area of altered signal involving the peripheral margin of the pancreatic head and uncinate process. It is slightly diminished in signal on T1 with possibly slightly less enhancement than the remainder of the pancreas. On T2, appears isointense to slightly higher signal than the rest of the pancreas. There is no discrete focal mass. No peripancreatic fluid or adenopathy. Adrenal glands: Normal. Kidneys: Normal. No cysts, masses or hydronephrosis. Normal symmetric renal enhancement. Peritoneum/retroperitoneum: No ascites or adenopathy in the abdomen. Bowel: No acute findings. Included inferior chest: No pleural effusion or other abnormalities in the included lung bases. Bones: No significant abnormalities. Procedure Note Deysi García MD - 06/21/2018 EXAM: MRI ABDOMEN WITH AND WITHOUT CONTRAST HISTORY: Elevated alkaline phosphatase level and bilirubin. COMPARISON: 08/30/2017 MRI abdomen. TECHNIQUE: Standard MRI abdomen with and without contrast. Standard MRCPwith thin section MRCP images with reconstructed thick slab sections.Postcontrast dynamic phase imaging of the abdomen following 16 mL Dotaremcontrast IV. FINDINGS: Liver: The right lobe of the liver measures 19 cm in sagittal dimension.Normal contour of the liver. No evidence for cirrhosis. Diffuse drop insignal on the [id number] sequence compared with the in-phase T1 sequencecompatible with diffuse fatty infiltration. There is no liver mass orsuspicious enhancement in the liver. Spleen: Normal in size and signal, measures a maximum of 10.6 cm. Gallbladder/biliary: There is a solitary almost 2 cm T2 dark signalgallstone. There is no gallbladder wall thickening or surrounding fluid.No intrahepatic or extrahepatic biliary ductal dilatation. No evidence forcholedocholithiasis. No filling defects within the biliary tree. Pancreas: No pancreatic ductal dilatation. Unchanged compared with theprior MRI dated 08/30/2017, there is a subtle vague area of altered signalinvolving the peripheral margin of the pancreatic head and uncinateprocess. It is slightly diminished in signal on T1 with possibly slightlyless enhancement than the remainder of the pancreas. On T2, appearsisointense to slightly higher signal than the rest of the pancreas. Thereis no discrete focal mass. No peripancreatic fluid or adenopathy. Adrenal glands: Normal. Kidneys: Normal. No cysts, masses or hydronephrosis. Normal symmetricrenal enhancement. Peritoneum/retroperitoneum: No ascites or adenopathy in the abdomen. Bowel: No acute findings. Included inferior chest: No pleural effusion or other abnormalities in theincluded lung bases. Bones: No significant abnormalities. IMPRESSION: 1. Stable appearance of the pancreas when compared with 08/30/2017 MRI.Subtle capsule-like area of altered signal in the pancreatic head anduncinate process. Could reflect autoimmune pancreatitis or sequela fromold pancreatitis. 2. No new findings in the abdomen. 3. Solitary gallstone. No biliary ductal dilatation orcholedocholithiasis. 4. Fatty infiltration of the liver. POS [id number] Edited by: Alexandra Narayan on 06/21/2018 5:39 PM Melissa Polk PA-C IMG MR ABDOMEN Final Result documented in this encounter Visit Diagnoses Diagnosis Elevated alkaline phosphatase level Elevated bilirubin Elevated alkaline phosphatase level Elevated bilirubin documented in this encounter Care Teams Voip Engineer Relationship Specialty Start Date End Date America Stack MD [address] [facility] [place] [place] [address] PCP - General Internal Medicine 03/04/17 Lisa Solomon DO [address] [place] [address] [email or web address] Historical LMR Provider 02/23/17 05/17/21 Christian Nguyen MD [email or web address] Historical LMR Provider 02/23/17 05/17/21 Sydney Zimmerman MD [address] [place] [address] Historical LMR Provider 02/23/17 Shane Linda DO [address] [place] [address] Orthopedics & Sports Medicine, [place] [address] [email or web address] Historical LMR Provider 02/23/17 Eli Dobbins MD [address] [place] [address], [address] [place] [address] [email or web address] Historical LMR Provider 02/23/17 America Stack MD [address] [place] [address] [place] [address] Historical LMR Provider 02/23/17 Low Mendoza MD [address] [place] [address] [email or web address] Historical LMR Provider 02/23/17 05/17/21 Suni Guerrero MD [address] [place] [address] Historical LMR Provider 02/23/17 2 Elizabet Elias [address] [place] [address] [email or web address] Genetic Counselor Genetics 04/25/20 documented as of this encounter Additional Source Comments The information contained in this document represents components of the legal health record. It is not the complete legal health record.[facility]
--- OUTSIDE RECORDS SUMMARY | 2025-01-02 16:36 | XMS_ITS | Encounter Summary ---
Author Organization [facility] Address [address] [place] [address] Care Team Providers Care Wedding Makeup Artist Name Role Phone Nguyen Cantrell MD Primary Care Provider Encounter Details Date Type Department Care Team Description 02/01/2016 Provider Network Mgr Report Medical Records [address] [place] [address] Jose Antonio Ambrose MD Social History Tobacco Use Types Packs/Day Years [...] on filedocumented in this encounter Care Teams Wedding Makeup Artist Relationship Specialty Start Date End Date Nguyen Cantrell MD [address] [place] [address] PCP - General Internal Medicine 01/30/15 documented as of this encounter
--- OUTSIDE RECORDS SUMMARY | 2025-01-02 16:36 | XMS_ITS | Encounter Summary ---
Author Organization [facility] Address [address] [place] [address] Phone Care Team Providers Care Pharmacy Care Coordinator Name Role Phone Lisa Solomon Angie GANDHI Unavailable [phone] Christian Nguyen MD Unavailable [email or web address] Sydney Zimmerman MD Unavailable [phone] Shane Linda DO Unavailable [phone] Eli Dobbins MD Unavailable [phone] America Stack MD Unavailable Low Mendoza MD Unavailable Suni Guerrero MD Unavailable + [phone] America Stack MD Primary Care Provider Elizabet Elias Unavailable [phone] Encounter Details Date Type Department Care Team (Late st Contact Info) Description 06/02/2017 Procedure Pass [facility], Ct Scan - [address] [address] Social History Tobacco Use Types Packs/Day Years [...] on filedocumented in this encounter Care Teams Pharmacy Care Coordinator Relationship Specialty Start Date End Date America Stack MD [address] [place] [address] PCP - General Internal Medicine 03/04/17 Lisa Solomon DO [address] [place] [address] [email or web address] Historical LMR Provider 02/23/17 05/17/21 Christian Nguyen MD [email or web address] Historical LMR Provider 02/23/17 05/17/21 Sydney Zimmerman MD [address] [place] [address] Historical LMR Provider 02/23/17 Shane Linda DO [address] [place] [address] Orthopedics & Sports Medicine, [place] [address] [email or web address] Historical LMR Provider 02/23/17 Eli Dobbins MD [address] [place] [address], 2nd [place] [address] [email or web address] Historical LMR Provider 02/23/17 America Stack MD [address] [facility] [address] Historical LMR Provider 02/23/17 Low Mendoza MD [address] [facility] [address] [place] [address] [email or web address] Historical LMR Provider 02/23/17 05/17/21 Suni Guerrero MD [address] [place] [phone] Historical LMR Provider 02/23/17 2 Elizabet Elias [address] [place] [address] [email or web address] Genetic Counselor Genetics 04/25/20 documented as of this encounter Additional Source Comments The information contained in this document represents components of the legal health record. It is not the complete legal health record.[facility]
--- OUTSIDE RECORDS SUMMARY | 2025-01-02 16:36 | XMS_ITS | Encounter Summary ---
Author Organization [facility] Address [address] [place] [address] Phone Care Team Providers Care Bore Miner Operator Name Role Phone Lisa Solomon Angie GANDHI Unavailable [phone] Christian Nguyen MD Unavailable [email or web address] Sydney Zimmerman MD Unavailable [phone] Shane Linda DO Unavailable [phone] Eli Dobbins MD Unavailable [phone] America Stack MD Unavailable Low Mendoza MD Unavailable Suni Guerrero MD Unavailable + [phone] America Stack MD Primary Care Provider Elizabet Elias Unavailable [phone] Reason for Referral * Outpatient Procedure - Closed Specialty Diagnoses / Procedures Referred By Contac t Referred To Contact Diagnoses Abnormal CT of the abdomen Procedures CT Abdomen Only (No Pelvis) America Stack MD Phone: tel: fax: Referral ID Status Reason Start Date Expiration Date Visits Re quested Visits Authorized [id number] Closed 07/22/2017 07/22/2018 1 1 Encounter Details Date Type Department Care Team (Late st Contact Info) Description 07/22/2017 Ancillary Orders Virtual Department [address] [place] [address] America Stack MD [facility] [place] [address] of the abdomen Social History Tobacco Use Types Packs/Day Years [...] documented as of this encounter Results * CT ABDOMEN WITH CONTRAST (07/22/2017 9:10 AM EDT) Anatomical Region Laterality Modality Abdomen, Abdominal Vasculature C omputed Tomography 07/22/2017 9:03 AM EDT Impressions 07/22/2017 9:19 AM EDT 1. Nonspecific nonenhancing low attenuating soft tissue encasing the pancreatic head and uncinate process. Findings are atypical for an adenocarcinoma. Lymphoma or sequela of prior pancreatitis are possibilities. Either endoscopic ultrasound or MRI of the pancreas is recommended for further evaluation. 2. Mild hepatic steatosis. 3. Additional findings as outlined. TOTAL CTDIvol: 12.7 mGy POS - [id number] Narrative 07/22/2017 9:19 AM EDT COMPARISON: Nonenhanced CT abdomen pelvis report from [facility] dated 03/29/2017. TECHNIQUE: After the administration of oral and intravenous contrast, scanning is obtained from dome of the liver to the iliac crests with dual phase imaging in the arterial and portal venous phase per pancreatic mass protocol. Sagittal and coronal reformats generated. Automated exposure control utilized. CT ABDOMEN FINDINGS: Lung bases/heart: Imaged heart is normal. Nonspecific bilateral lower lobe groundglass opacities. No pleural effusions or nodules. Spleen: Normal. Liver: Mild diffuse low-attenuation indicative of steatosis. Gallbladder/biliary tree: Normal. Pancreas: There is a subtle rind of nonenhancing low attenuating soft tissue surrounding the inferior margin of the pancreatic head and the uncinate process. No masslike features. Pancreas otherwise enhances normally. No ductal dilatation. Adrenal glands: Normal. Vasculature: Normal. Genitourinary: Kidneys are normal. Gastrointestinal tract: Normal. Peritoneum/retroperitoneum: No lymphadenopathy, ascites or fluid collections. Musculoskeletal: Postsurgical changes in the right breast. There is subcutaneous linear soft tissue stranding throughout the imaged abdomen and mild abdominal wall skin thickening which is presumably postsurgical scarring. No fluid collections. Rectus diastasis. No hernia. No significant bony degenerative changes or destructive lytic or blastic bone lesions. Procedure Note Estrella Cleary MD - 07/22/2017 COMPARISON: Nonenhanced CT abdomen pelvis report from [facility] dated 03/29/2017. TECHNIQUE: After the administration of oral and intravenous contrast,scanning is obtained from dome of the liver to the iliac crests with dualphase imaging in the arterial and portal venous phase per pancreatic massprotocol. Sagittal and coronal reformats generated. Automated exposurecontrol utilized. CT ABDOMEN FINDINGS: Lung bases/heart: Imaged heart is normal. Nonspecific bilateral lowerlobe groundglass opacities. No pleural effusions or nodules. Spleen: Normal. Liver: Mild diffuse low-attenuation indicative of steatosis. Gallbladder/biliary tree: Normal. Pancreas: There is a subtle rind of nonenhancing low attenuating softtissue surrounding the inferior margin of the pancreatic head and theuncinate process. No masslike features. Pancreas otherwise enhancesnormally. No ductal dilatation. Adrenal glands: Normal. Vasculature: Normal. Genitourinary: Kidneys are normal. Gastrointestinal tract: Normal. Peritoneum/retroperitoneum: No lymphadenopathy, ascites or fluidcollections. Musculoskeletal: Postsurgical changes in the right breast. There issubcutaneous linear soft tissue stranding throughout the imaged abdomenand mild abdominal wall skin thickening which is presumably postsurgicalscarring. No fluid collections. Rectus diastasis. No hernia. Nosignificant bony degenerative changes or destructive lytic or blastic bonelesions. IMPRESSION: 1. Nonspecific nonenhancing low attenuating soft tissue encasing thepancreatic head and uncinate process. Findings are atypical for anadenocarcinoma. Lymphoma or sequela of prior pancreatitis arepossibilities. Either endoscopic ultrasound or MRI of the pancreas isrecommended for further evaluation. 2. Mild hepatic steatosis. 3. Additional findings as outlined. TOTAL CTDIvol: 12.7 mGy POS - [id number] America Stack MD IMG CT XSPECIALTY ORDE ANDRZEJ Final Result documented in this encounter Visit Diagnoses Diagnosis Abnormal CT of the abdomen Nonspecific (abnormal) findings on radiological and other examination of abdominal area, including retroperitoneum Abnormal CT of the abdomen Nonspecific (abnormal) findings on radiological and other examination of abdominal area, including retroperitoneum documented in this encounter Care Teams Bore Miner Operator Relationship Specialty Start Date End Date America Stack MD [facility] [place] [address] PCP - General Internal Medicine 03/04/17 Lisa Solomon DO [address] [place] [address] [email or web address] Historical LMR Provider 02/23/17 05/17/21 Christian Nguyen MD [email or web address] Historical LMR Provider 02/23/17 05/17/21 Sydney Zimmerman MD [address] [place] [address] Historical LMR Provider 02/23/17 Shane Linda DO [address] [place] [address] Orthopedics [facility] Sports Medicine, [place] [address] [email or web address] Historical LMR Provider 02/23/17 Eli Dobbins MD [address] [facility], [address] [place] [address] [email or web address] Historical LMR Provider 02/23/17 America Stack MD [address] [place] [address] [place] [address] Historical LMR Provider 02/23/17 Low Mendoza MD [address] [place] [address] [email or web address] Historical LMR Provider 02/23/17 05/17/21 Suni Guerrero MD [address], [place] [address] Historical LMR Provider 02/23/17 2 Elizabet Elias [address] [place] [address] [email or web address] .[email or web address] Genetic Counselor Genetics 04/25/20 documented as of this encounter Additional Source Comments The information contained in this document represents components of the legal health record. It is not the complete legal health record.[facility]
--- OUTSIDE RECORDS SUMMARY | 2025-01-02 16:36 | XMS_ITS | Encounter Summary ---
Author Organization [facility] Address [address] [place] [address] Phone Care Team Providers Care Industrial Health And Safety Professor Name Role Phone Lisa Solomon Angie GANDHI Unavailable [phone] Christian Nguyen MD Unavailable [email or web address] Sydney Zimmerman MD Unavailable [phone] Shane Linda DO Unavailable [phone] Eli Dobbins MD Unavailable [phone] America Stack MD Unavailable Low Mendoza MD Unavailable Suni Guerrero MD Unavailable + [phone] America Stack MD Primary Care Provider Elizabet Elias Unavailable [phone] Encounter Details Date Type Department Care Team (Late st Contact Info) Description 07/07/2018 Procedure Pass [facility] Endoscopy Admitting Dept Virtual Department 30 [place], [place] [id number] Social History Tobacco Use Types Packs/Day Years [...] on filedocumented in this encounter Care Teams Industrial Health And Safety Professor Relationship Specialty Start Date End Date America Stack MD [address] [facility] [place] [address] PCP - General Internal Medicine 03/04/17 Lisa Solomon DO [address] [place] [address] [email or web address] Historical LMR Provider 02/23/17 05/17/21 Christian Nguyen MD [email or web address] Historical LMR Provider 02/23/17 05/17/21 Sydney Zimmerman MD [address] [place] [address] Historical LMR Provider 02/23/17 Shane Linda DO [address] [place] [address] Orthopedics & Sports Medicine, [place] [address] [email or web address] Historical LMR Provider 02/23/17 Eli Dobbins MD [address] [place] [address], [address] [place] [address] [email or web address] Historical LMR Provider 02/23/17 America Stack MD [address] [place] [address] [place] [address] Historical LMR Provider 02/23/17 Low Mendoza MD 40 [facility], [facility] [address] [place] [address] [email or web address] Historical LMR Provider 02/23/17 05/17/21 Suni Guerrero MD [address] [place] [address] Historical LMR Provider 02/23/17 2 Elizabet Elias [address] [place] [address] [email or web address] Genetic Counselor Genetics 04/25/20 documented as of this encounter Additional Source Comments The information contained in this document represents components of the legal health record. It is not the complete legal health record.[facility]
--- OUTSIDE RECORDS SUMMARY | 2025-01-02 16:36 | XMS_ITS | Encounter Summary ---
Author Organization [facility] Address [address] [place] [address] Care Team Providers Care Ms Sql Server Developer Name Role Phone Jenna Osborn MD Primary Care Provider Nguyen Clarke MD Primary Care Provider [phone] Encounter Details Date Type Department Care Team Description 01/21/2012 Transfer Records Medical Records [address] [place] [address] Lisa Solomon DO Social History Tobacco Use Types Packs/Day Years [...] on filedocumented in this encounter Care Teams Ms Sql Server Developer Relationship Specialty Start Date End Date Jenna Osborn MD PCP - General Internal Medicine 09/01/11 01/29/15 Nguyen Cantrell MD [address] [place] [address] PCP - General Internal Medicine 01/30/15 documented as of this encounter
--- OUTSIDE RECORDS SUMMARY | 2025-01-02 16:36 | XMS_ITS | Encounter Summary ---
Author Organization [facility] Address [address] [place] [address] Phone Care Team Providers Care Product Safety Specialist Name Role Phone Lisa Solomon Unavailable [phone] Christian Nguyen MD Unavailable [email or web address] Sydney Zimmerman MD Unavailable [phone] Shane Linda DO Unavailable [phone] Eli Dobbins MD Unavailable [phone] America Stack MD Unavailable Low Mendoza MD Unavailable Suni Guerrero MD Unavailable + [phone] America Stack MD Primary Care Provider Elizabet Elias Unavailable [phone] Encounter Details Date Type Department Care Team (Latest Contact Info) Description 05/31/2018 Transcribe Orders [facility] Laboratory [address] [place], [place] [phone] Melissa Polk PA-C [address] [place] [address] [email or web address] Upper abdominal pain (Primary Dx); Bloating; Constipation, unspecified constipation type Social History Tobacco Use Types Packs/Day Years [...] documented as of this encounter Results * Tissue transglutaminase IgA (05/31/2018 10:52 AM EST) TTG IGA ANTIBODY <1.2 <4.0 (Negative) U/mL [facility] DPT OF LAB MED AND PAT+ Blood 05/31/2018 10:5 2 AM EST 05/31/2018 10:56 AM EST us Melissa Polk PA-C LAB BLOOD ORDERABLES Final Resu lt [facility] DPT OF LAB MED AND PAT+ [address] [place] [address] * TSH (05/31/2018 10:51 AM EST) TSH 1.99 0.27 - 4.20 uIU/mL [facility] Blood 05/31/2018 10:5 1 AM EST 05/31/2018 10:55 AM EST us Melissa Polk PA-C LAB BLOOD ORDERABLES Final Resu lt [facility] [address] [place] [address] * C-Reactive Protein (05/31/2018 10:51 AM EST) C REACTIVE PROTEIN 2.3 0.0 - 4.0 mg/L [facility] Blood 05/31/2018 10:5 1 AM EST 05/31/2018 10:55 AM EST us Melissa Polk PA-C LAB BLOOD ORDERABLES Final Resu lt [address] [address] * (ABNORMAL) Comprehensive metabolic panel (05/31/2018 10:51 AM EST) SODIUM 143 133 - 146 mmol/L [facility] POTASSIUM 4.0 3.3 - 5.1 mmol/L [facility] CHLORIDE 103 96 - 108 mmol/L [facility] CO2 27 21 - 35 mmol/L [facility] BUN 14 6 - 19 mg/dL [facility] CREATININE 0.70 0.5 - 1.5 mg/dL [facility] GLUCOSE 112(H) 70 - 99 mg/dL [facility] ALBUMIN 4.4 3.9 - 4.8 g/dL [facility] TOTAL PROTEIN 7.1 6.5 - 8.0 g/dL [facility] CALCIUM 9.6 8.4 - 10.3 mg/dL [facility] ALKALINE PHOSPHATASE 124(H) 39 - 117 U/L [facility] TOTAL BILIRUBIN 3.2(H) 0.0 - 1.2 mg/dL [facility] AST 25 0 - 37 U/L [facility] ALT 30 0 - 40 U/L [facility] GLOBULIN 2.7 1 - 4.8 g/dL [facility] EGFR 105 >59 mL/min/1.7 3m2 [facility] Comment:If patient is black, multiply result by 1.159. Estimated glomerular filtration rate calculated using the CKD-EPI equation. ANION GAP 17 10 - 20 mmol/L [facility] Blood 05/31/2018 10:5 1 AM EST 05/31/2018 10:55 AM EST Melissa Polk PA-C LAB BLOOD ORDERABLES Final Resu lt [address] [address] * (ABNORMAL) CBC (05/31/2018 10:51 AM EST) WBC 4.48 3.40 - 11.20 K/uL [facility] RBC 5.04(H) 3.80 - 4.80 M/uL [facility] HGB 12.1 12.0 - 15.0 g/dL [facility] HCT 39.5 36.0 - 46.0 % [facility] PLT 356 130 - 400 K/uL [facility] MCV 78.4(L) 79.0 - 98.0 fL [facility] MCH 24.0(L) 27.0 - 34.8 pg [facility] MCHC 30.6(L) 31.5 - 36.0 g/dL [facility] RDW 13.5 10.8 - 14.6 % [facility] MPV 8.5(L) 9.4 - 12.4 fl [facility] NRBC 0.00 0.00 /100 WBCs [facility] ABSOLUTE NRBC 0.00 0.00 K/uL [facility] Blood 05/31/2018 10:5 1 AM EST 05/31/2018 10:55 AM EST us Melissa Polk PA-C LAB BLOOD ORDERABLES Final Resu lt Performing Organization Address City/State/[facility] Co de Phone Number [address] [address] * Immunoglobulin A (05/31/2018 10:51 AM EST) IgA 107 70 - 400 mg/dL [facility] Blood 05/31/2018 10:5 1 AM EST 05/31/2018 10:55 AM EST Melissa Polk PA-C LAB BLOOD ORDERABLES Final Resu lt Performing Organization Address City/[facility]/ZIP Co de Phone Number [address] [address] documented in this encounter Visit Diagnoses Diagnosis Upper abdominal pain- Primary Bloating Flatulence, eructation, and gas pain Constipation, unspecified constipation type documented in this encounter Care Teams Product Safety Specialist Relationship Specialty Start Date End Date America Stack MD [address] [facility] [place] [address] PCP - General Internal Medicine 03/04/17 Lisa Solomon DO [address] [place] [address] [email or web address] Historical LMR Provider 02/23/17 05/17/21 Christian Nguyen MD [email or web address] Historical LMR Provider 02/23/17 05/17/21 Sydney Zimmerman MD [address] [place] [address] Historical LMR Provider 02/23/17 Shane Linda DO [address] [place] [address] Orthopedics & Sports Medicine, [place] [address] [email or web address] Historical LMR Provider 02/23/17 Eli Dobbins MD [address] [place] [address] [email or web address] Historical LMR Provider 02/23/17 America Stack MD [address] [facility] [address] Historical LMR Provider 02/23/17 Low Mendoza MD [address] [place] [address] [email or web address] Historical LMR Provider 02/23/17 05/17/21 Suni Guerrero MD [address] [place] [address] Historical LMR Provider 02/23/17 2 Elizabet Elias [address] [place] [address] [email or web address] Genetic Counselor Genetics 04/25/20 documented as of this encounter Additional Source Comments The information contained in this document represents components of the legal health record. It is not the complete legal health record.[facility]
--- OUTSIDE RECORDS SUMMARY | 2025-01-02 16:36 | XMS_ITS | Encounter Summary ---
Author Organization [facility] Address [address] [place] [address] Phone Care Team Providers Care Mold Release Worker Name Role Phone Lisa Solomon Angie GANDHI Unavailable [phone] Christian Nguyen MD Unavailable [email or web address] Sydney Zimmerman MD Unavailable [phone] Shane Linda DO Unavailable [phone] Eli Dobbins MD Unavailable [phone] America Stack MD Unavailable Low Mendoza MD Unavailable Suni Guerrero MD Unavailable + [phone] America Stack MD Primary Care Provider Elizabet Elias Unavailable [phone] Encounter Details Date Type Department Care Team (Late st Contact Info) Description 06/28/2019 Ancillary Orders Virtual Department [address] [place] [address] America Stack MD [address] [facility] [place] [address] Pain, joint, shoulder, right Social History Tobacco Use Types Packs/Day Years [...] documented as of this encounter Visit Diagnoses Diagnosis Pain, joint, shoulder, right documented in this encounter Care Teams Mold Release Worker Relationship Specialty Start Date End Date America Stack MD [address] [place] [address] [place] [address] PCP - General Internal Medicine 03/04/17 Lisa Solomon DO [address] [place] [address] [email or web address] Historical LMR Provider 02/23/17 05/17/21 Christian Nguyen MD [email or web address] Historical LMR Provider 02/23/17 05/17/21 Sydney Zimmerman MD [address] [place] [address] Historical LMR Provider 02/23/17 Shane Linda DO [address] [place] [address] Orthopedics & Sports Medicine, [place] [address] [email or web address] Historical LMR Provider 02/23/17 Eli Dobbins MD [address] [place] [address] [email or web address] Historical LMR Provider 02/23/17 America Stack MD [address] [place] [address] [place] [address] Historical LMR Provider 02/23/17 Low Mendoza MD [address] [place] [address] [address] [place] [address] [email or web address] Historical LMR Provider 02/23/17 05/17/21 Suni Guerrero MD [address] [place] [phone] Historical LMR Provider 02/23/17 2 Elizabet Elias [address] [place] [address] [email or web address] Genetic Counselor Genetics 04/25/20 documented as of this encounter Additional Source Comments The information contained in this document represents components of the legal health record. It is not the complete legal health record.[facility]
--- OUTSIDE RECORDS SUMMARY | 2025-01-02 16:36 | XMS_ITS | Encounter Summary ---
Author Organization [facility] Address [address] [place] [address] Phone Care Team Providers Care Director Of Recruitment Name Role Phone Lisa Solomon Angie GANDHI Unavailable [phone] Christian Nguyen MD Unavailable [email or web address] Sydney Zimmerman MD Unavailable [phone] Shane Linda DO Unavailable [phone] Eli Dobbins MD Unavailable [phone] America Stack MD Unavailable Low Mendoza MD Unavailable Suni Guerrero MD Unavailable + [phone] America Stack MD Primary Care Provider Elizabet Elias Unavailable [phone] Encounter Details Date Type Department Care Team (Late st Contact Info) Description 10/08/2017 Procedure Pass [facility], Ct Scan - [address] [address] Social History Tobacco Use Types Packs/Day Years [...] on filedocumented in this encounter Care Teams Director Of Recruitment Relationship Specialty Start Date End Date America Stack MD [address] [place] [address] PCP - General Internal Medicine 03/04/17 Lisa Solomon DO [address] [place] [address] [email or web address] Historical LMR Provider 02/23/17 05/17/21 Christian Nguyen MD [email or web address] Historical LMR Provider 02/23/17 05/17/21 Sydney Zimmerman MD [address] [place] [address] Historical LMR Provider 02/23/17 Shane Linda DO [address] [place] [address] Orthopedics & Sports Medicine, [place] [address] [email or web address] Historical LMR Provider 02/23/17 Eli Dobbins MD [address] [place] [address], 2nd [place] [address] [email or web address] Historical LMR Provider 02/23/17 America Stack MD [address] [place] [address] Historical LMR Provider 02/23/17 Low Mendoza MD 40 [facility] [address] [place] [address] [email or web address] Historical LMR Provider 02/23/17 05/17/21 Suni Guerrero MD [address] [place] [id number] Historical LMR Provider 02/23/17 2 Elizabet Elias [address] [place] [address] [email or web address] Genetic Counselor Genetics 04/25/20 documented as of this encounter Additional Source Comments The information contained in this document represents components of the legal health record. It is not the complete legal health record.[facility]
--- OUTSIDE RECORDS SUMMARY | 2025-01-02 16:36 | XMS_ITS | Encounter Summary ---
Author Organization [facility] Address [address] [place] [address] Care Team Providers Care Field Marketing Lead Name Role Phone Nguyen Cantrell MD Primary Care Provider [phone] Encounter Details Date Type Department Care Team Description 03/07/2016 Release of Information Medical Records [address] [place] [address] Abstract, Provider Social History Tobacco Use Types [...] on filedocumented in this encounter Care Teams Field Marketing Lead Relationship Specialty Start Date End Date Nguyen Cantrell MD [address] [place] [address] PCP - General Internal Medicine 01/30/15 documented as of this encounter
--- OUTSIDE RECORDS SUMMARY | 2025-01-02 16:36 | XMS_ITS | Encounter Summary ---
Author Organization [facility] Address [address] [place] [address] Phone Care Team Providers Care Uke Operator Name Role Phone Lisa Solomon Unavailable [phone] Christian Nguyen MD Unavailable [email or web address] Sydney Zimmerman MD Unavailable [phone] Shane Linda DO Unavailable [phone] Eli Dobbins MD Unavailable [phone] America Stack MD Unavailable Low Mendoza MD Unavailable Suni Guerrero MD Unavailable + [phone] America Stack MD Primary Care Provider Elizabet Elias Unavailable [phone] Encounter Details Date Type Department Care Team (Late st Contact Info) Description 11/04/2018 Ancillary Orders [facility] General Surgical Care [address] [place] [address] Eli Dobbins MD 15 [facility], 2nd [place] [address] [email or web address] Axillary adenopathy Social History Tobacco Use Types Packs/Day Years [...] documented as of this encounter Results * US Axilla - Not Breast Imaging (Right) (11/04/2018 9:43 AM EDT) Anatomical Region Laterality Modality Chest Ultrasound 11/04/2018 12:2 3 PM EDT Impressions 11/04/2018 12:24 PM EDT Unremarkable sonographic appearance of the right axilla. No adenopathy or other mass is evident. No explanation of palpable lump. Ultrasound BI-RADS CATEGORY 1 - NEGATIVE POS [id number] Narrative 11/04/2018 12:24 PM EDT Right axillary ultrasound Duplex imaging of the axilla in the area where the patient identifies a palpable abnormality fails to demonstrate any cystic or solid mass or other sonographic finding which might account for the palpable lump Procedure Note Tray Sultana MD - 11/04/2018 Right axillary ultrasound Duplex imaging of the axilla in the area where the patient identifies apalpable abnormality fails to demonstrate any cystic or solid mass orother sonographic finding which might account for the palpable lump IMPRESSION: Unremarkable sonographic appearance of the right axilla. No adenopathy orother mass is evident. No explanation of palpable lump. Ultrasound BI-RADS CATEGORY 1 - NEGATIVE POS [id number] us Eli Dobbins MD IMG US EXTREMITY Final Res ult documented in this encounter Visit Diagnoses Diagnosis Axillary adenopathy Enlargement of lymph nodes Axillary adenopathy Enlargement of lymph nodes documented in this encounter Care Teams Uke Operator Relationship Specialty Start Date End Date America Stack MD [address] [place] [address] PCP - General Internal Medicine 03/04/17 Lisa Solomon DO [address] [place] [address] [email or web address] Historical LMR Provider 02/23/17 05/17/21 Christian Nguyen MD [email or web address] Historical LMR Provider 02/23/17 05/17/21 Sydney Zimmerman MD [address] [place] [address] Historical LMR Provider 02/23/17 Shane Linda DO [address] [place] [address] Orthopedics & Sports Medicine, [place] [address] [email or web address] Historical LMR Provider 02/23/17 Eli Dobbins MD [address] [place] [address], 2nd [place] [address] [email or web address] Historical LMR Provider 02/23/17 America Stack MD [address] [place] [address] Historical LMR Provider 02/23/17 Low Mendoza MD [address] [place] [address] [email or web address] Historical LMR Provider 02/23/17 05/17/21 Suni Guerrero MD [address] [place] [id number] Historical LMR Provider 02/23/17 2 Elizabet Elias [address] [place] [address] [email or web address] Genetic Counselor Genetics 04/25/20 documented as of this encounter Additional Source Comments The information contained in this document represents components of the legal health record. It is not the complete legal health record.[facility]
--- OUTSIDE RECORDS SUMMARY | 2025-01-02 16:36 | XMS_ITS | Clinical Summary ---
Author Organization [facility] Address [address] [facility] [place] [address] Care Team Providers Care Artists' Model Name Role Phone Nguyen Cantrell MD Primary Care Provider [phone] Allergies Active Allergy Reactions Severity Noted Date Comments Anti-Itch Rash/Dermatitis 09/14/2011 Penicillins Rash/Dermatitis 09/14/2011 Medications Medication Sig Dispensed Refills Start Date End Date Status sulindac (CLINORIL) 200 MG tablet Take 1 Tab by mouth 2 times daily. 60 Tab 1 04/01/2015 Active cetirizine (ZYRTEC ALLERGY) 10 MG tabletIndications:Ski n rash Take 1 Tab by mouth daily. 30 Tab 5 08/13/2015 Active Menthol-Zinc Oxide (CALMOSEPTINE) 0.44-20.6 % Ointment Apply 1 Each topically 4 times daily. 1 Tube 11 08/20/2015 Active sertraline (ZOLOFT) 100 MG tabletIndications:Anx iety disorder, unspecified anxiety disorder type Take 1 Tab by mouth daily. 30 Tab 5 09/09/2015 Active hydrOXYzine (ATARAX) 10 MG tablet Take 1 Tab by mouth 3 times daily as needed for Itching. 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 She underwent chemo (unclear regimen) and XRT at the time. 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 Vitamin D deficiency 10/29/2011 Family History Medical History Relation Name Comments CA Breast Other pat aunt Relation Name Status Comments Aunt breast ca Father Alive prostate cancer 40 Mother Alive well Other pat aunt Social History Tobacco Use Types Packs/Day Years Used Date Smoking Tobacco: Never Smokeless Tobacco: Never Alcohol Use Standard Drinks/Week Comments Not Asked 0 (1 standard drink = 0.6 oz pur e alcohol) Sex Assigned at Date Recorded Not on file Last Filed Vital Signs Vital Sign Reading Time Taken Comments Blood Pressure 112/80 11/14/2015 7:56 AM EDT Pulse 74 11/14/2015 7:56 AM EDT Temperature 36.8 C (98.3 F) 11/14/2015 7:56 AM EDT Respiratory Rate 14 11/14/2015 7:56 AM EDT Oxygen Saturation - - Inhaled Oxygen Concentration - - Weight 82.8 kg (182 lb 9.6 oz) 11/14/2015 7:56 A M EDT Height 170.2 cm (5' 7 ) 11/14/2015 7:56 AM EDT Body Mass Index 28.6 11/14/2015 7:56 AM EDT Plan of Treatment Health Maintenance Due Date Last Done Comments Covid-19 Vaccine (#1) 1974 TOBACCO CHECK/ADVISE 02/16/1992 DTAP/TDAP/TD (1 - Tdap) 1993 CERVICAL CANCER SCREENING 1995 BASELINE HEALTH EXAM 40-64 2014 MAMMOGRAM 09/01/2016 09/02/2015, 1011/2014, 02/12/2014, Additional history exists DEPRESSION SCREEN 09/18/2016 09/19/2015 CHOLESTEROL SCREENING 09/08/2020 09/09/2015 COLON CANCER SCREENING 02/16/2024 SHINGLES VACCINE (1 of 2) 02/16/2024 BMI CHECK/ADVISE 05/10/2024 06/04/2014 INFLUENZA (#1) 2025 PNEUMOCOCCAL VACCINE FOR HIG H RISK PATIENTS (#1) 2039 Care Teams Artists' Model Relationship Specialty Start Date End Date Nguyen Cantrell MD [address] [place] [address] PCP - General Internal Medicine 01/30/15
--- OUTSIDE RECORDS SUMMARY | 2025-01-02 16:36 | XMS_ITS | Encounter Summary ---
Author Organization [facility] Address [address] [place] [address] Care Team Providers Care Slumber Room Attendant Name Role Phone Jenna Osborn MD Primary Care Provider Nguyen Clarke MD Primary Care Provider [phone] Reason for Referral * Radiology Services - Authorized/Booked Specialty Diagnoses / Procedures Referred By Contac t Referred To Contact Radiology Diagnoses Breast cancer (HCC) Procedures MRI BREAST BILATERAL Jenna Osborn MD [address] [place] [address] [address]ri/[address] [address] Referral ID Status Reason Start Date Expiration Date V isits Requested Visits Authorized NO AUTH REQURIED Authorized/ Booked 06/07/2013 08/05/2013 1 1 Reason for Visit * Reason Onset Date Comments other 07/26/2012 orders Encounter Details Date Type Department Care Team Description 07/26/2012 Telephone Adult Medicine [address] [address] Jenna Osborn MD other (orders) Social History Tobacco Use Types Packs/Day Years Used Date Smoking Tobacco: Never Smokeless Tobacco: Never Alcohol Use Standard Drinks/Week Comments Not Asked 0 (1 standard drink = 0.6 oz pur e alcohol) Sex Assigned at Date Recorded Not on file documented as of this encounter Miscellaneous Notes * Telephone Encounter - Jenna Osborn - 07/26/2012 11:39 AM EDT MRI ordered * Telephone Encounter - Cristiana Méndez - 07/26/2012 11:[address] Osborn, this woman needs an annual breast MRI And screening mammogram as per the report dated 06-30-2012. I will schedule her mammogram, however I cannot place the MRI orders. Please place the MRI order and the staff will schedule her for next year. Thank you for your attention to this Cristiana Courtneyandre Hernandez documented in this encounter Plan of Treatment Not on file documented as of this encounter Results * MRI BREAST BILATERAL (07/04/2013 10:35 AM EST) 07/04/2013 12:4 2 PM EST Impressions BETTY LEVY OTHER EXTERNAL - 07/04/2013 2:46 PM EST IMPRESSION: 1. Postsurgical changes in the right breast. No suspicious abnormality seen. Yearly screening breast MRI recommended per ACR/ACS guidelines. 2. Indeterminate calcifications were seen in the right breast on diagnostic mammogram performed 02/01/2013, for which stereotactic guided biopsy was recommended, but not performed per patient. Recommend repeat diagnostic right mammogram with magnification CC and MLO views. BI-RADS 0: Need Additional Imaging Evaluation and/or Prior Mammograms for Comparison Narrative BETTY RETANA EXTERNAL - 07/04/2013 2:46 PM EST BILATERAL BREAST MRI WITHOUT AND WITH IV CONTRAST HISTORY: History of right breast cancer status post lumpectomy and XRT. Patient is BRCA2 positive. TECHNIQUE: The patient received 18 cc IV Magnevist. CAD (DynaCAD) was utilized during interpretation. PRIORS: Breast MRIs performed 12/23/2011 and 06/30/2012. FINDINGS: There is moderate right and mild left bilateral background enhancement. RIGHT BREAST: Post surgical changes are again seen in the right breast. Susceptibility artifacts are seen in the right breast adjacent to the lumpectomy site, likely due to calcifications. A 5 mm enhancing focus in the upper outer right breast is unchanged from 12/24/2011. A small partial enhancing focus in the lower outer posterior right breast is also unchanged from 12/24/2011. There is no suspicious mass lesion, abnormal threshold enhancement, suspicious washout contrast kinetics, new architectural distortion, or skin thickening in the right breast. No lymphadenopathy is seen. LEFT BREAST: There is no suspicious mass lesion, abnormal threshold enhancement, suspicious washout contrast kinetics, architectural distortion, or skin thickening in the left breast. No lymphadenopathy is seen. Procedure Note Mohan Ambrocio MD - 07/04/2013 BILATERAL BREAST MRI WITHOUT AND WITH IV CONTRAST HISTORY: History of right breast cancer status post lumpectomy and XRT.Patient is BRCA2 positive. TECHNIQUE: The patient received 18 cc IV Magnevist. CAD (DynaCAD) wasutilized during interpretation. PRIORS: Breast MRIs performed 12/23/2011 and 06/30/2012. FINDINGS: There is moderate right and mild left bilateral background enhancement. RIGHT BREAST: Post surgical changes are again seen in the right breast. Susceptibilityartifacts are seen in the right breast adjacent to the lumpectomy site, likely due tocalcifications. A 5 mm enhancing focus in the upper outer right breast is unchanged from12/24/2011. A small partial enhancing focus in the lower outer posterior right breast is alsounchanged from 12/24/2011. There is no suspicious mass lesion, abnormal threshold enhancement,suspicious washout contrast kinetics, new architectural distortion, or skin thickening in the rightbreast. No lymphadenopathy is seen. LEFT BREAST: There is no suspicious mass lesion, abnormal threshold enhancement,suspicious washout contrast kinetics, architectural distortion, or skin thickening in the leftbreast. No lymphadenopathy is seen. IMPRESSION: 1. Postsurgical changes in the right breast. No suspicious abnormalityseen. Yearly screening breast MRI recommended per ACR/ACS guidelines. 2. Indeterminate calcifications were seen in the right breast ondiagnostic mammogram performed 02/01/2013, for which stereotactic guided biopsy was recommended, but notperformed per patient. Recommend repeat diagnostic right mammogram with magnification CCand MLO views. BI-RADS 0: Need Additional Imaging Evaluation and/or Prior Mammograms forComparison Jenna Osborn MD MRI WHITE SUHAD OTHER EXTERNAL documented in this encounter Visit Diagnoses Diagnosis Breast cancer (HCC)- Primary Malignant neoplasm of breast (female), unspecified site Breast cancer (HCC) Malignant neoplasm of breast (female), unspecified site documented in this encounter Care Teams Slumber Room Attendant Relationship Specialty Start Date End Date Jenna Osborn MD PCP - General Internal Medicine 09/01/11 01/29/15 Nguyen Cantrell MD [address] [place] [address] PCP - General Internal Medicine 01/30/15 documented as of this encounter
--- OUTSIDE RECORDS SUMMARY | 2025-01-02 16:36 | XMS_ITS | Clinical Summary ---
Author Organization [facility] Address [address] [place] [address] Phone Care Team Providers Care Photographic Process Worker Name Role Phone MaddiShane DO Unavailable [phone] Eli Dobbins MD Unavailable [phone] America Stack MD Unavailable America Stack MD Primary Care Provider Elizabet Elias Unavailable [phone] Allergies Active Allergy Reactions Criticality Noted Date [...] file Insurance MEDICARE PART A & B [facility] MEDICARE PART A & B [facility] [place] [place] [id number] MEDICARE PART A & B [place] [id number] MEDIC[place] [id number] [place] [id number] MEDICARE PART A & B [place] B [facility] MEDICARE PART A & [place] [facility] A & [facility] Advance Directives For more information, please contact: [phone] (9AM - 5PM [facility], Wednesday-Wednesday) * Full Code (Latest Code Status on File) Date Activated Date Inactivated Comments 04/01/2020 10:22 AM Question Answer Comments Code Status Confirmed With: Patient Care Teams Photographic Process Worker Relationship Specialty Start Date End Date America Stack MD [address] [facility] [place] [address] PCP - General Internal Medicine 03/04/17 Shane Linda DO [address] [place] [address] Orthopedics & Sports Medicine, [place] [address] Historical LMR Provider 02/23/17 Eli Dobbins MD [address] [place] [address], [address] [place] [address] Historical LMR Provider 02/23/17 America Stack MD [address] [facility] [place] [address] Historical LMR Provider 02/23/17 Elizabet Elias [address] [place] [address] [email or web address] Genetic Counselor Genetics 04/25/20 Additional Source Comments The information contained in this document represents components of the legal health record. It is not the complete legal health record.[facility]
--- OUTSIDE RECORDS SUMMARY | 2025-01-02 16:36 | XMS_ITS | Encounter Summary ---
Author Organization [facility] Address [address] [place] [address] Phone Care Team Providers Care Metal Cabinet Finisher Name Role Phone Lisa Solomon Angie GANDHI Unavailable [phone] Christian Nguyen MD Unavailable [email or web address] Sydney Zimmerman MD Unavailable [phone] Shane Linda DO Unavailable [phone] Eli Dobbins MD Unavailable [phone] America Stack MD Unavailable [phone] Low Mendoza MD Unavailable Suni Guerrero MD Unavailable + [phone] America Stack MD Primary Care Provider Elizabet Elias Unavailable [phone] Encounter Details Date Type Department Care Team (Late st Contact Info) Description 06/02/2018 Procedure Pass [facility], [address] [address] Social History Tobacco Use Types Packs/Day Years [...] on filedocumented in this encounter Care Teams Metal Cabinet Finisher Relationship Specialty Start Date End Date America Stack MD [address] [place] [address] PCP - General Internal Medicine 03/04/17 Lisa Solomon DO [address] [place] [address] [email or web address] Historical LMR Provider 02/23/17 05/17/21 Christian Nguyen MD [email or web address] Historical LMR Provider 02/23/17 05/17/21 Sydney Zimmerman MD [address] [place] [address] Historical LMR Provider 02/23/17 Shane Linda DO [address] [place] [address] Orthopedics & Sports Medicine, [place] [address] [email or web address] Historical LMR Provider 02/23/17 Eli Dobbins MD [address] [place] [address], [address] [place] [address] [email or web address] Historical LMR Provider 02/23/17 America Stack MD [address] [place] [address] [place] [address] Historical LMR Provider 02/23/17 Low Mendoza MD [address] [facility] [address] [place] [address] [email or web address] Historical LMR Provider 02/23/17 05/17/21 Suni Guerrero MD [address] [place] [address] Historical LMR Provider 02/23/17 2 Elizabet Elias [address] [place] [address] [email or web address] Genetic Counselor Genetics 04/25/20 documented as of this encounter Additional Source Comments The information contained in this document represents components of the legal health record. It is not the complete legal health record.[facility]
--- OUTSIDE RECORDS SUMMARY | 2025-01-02 16:36 | XMS_ITS | Encounter Summary ---
Author Organization [facility] Address [address] [place] [address] Phone Care Team Providers Care Dat Instructor Name Role Phone Lisa Solomon Angie GANDHI Unavailable [phone] Christian Nguyen MD Unavailable [email or web address] Sydney Zimmerman MD Unavailable [phone] Shane Linda DO Unavailable [phone] Eli Dobbins MD Unavailable [phone] America Stack MD Unavailable [phone] Low Mendoza MD Unavailable Suni Guerrero MD Unavailable + [phone] America Stack MD Primary Care Provider Elizabet Elias Unavailable [phone] Encounter Details Date Type Department Care Team (Late st Contact Info) Description 06/02/2017 Ancillary Orders Virtual Department [address] [place] [address] America Stack MD [address] [facility] [place] [address] of the abdomen Social History [...] as of this encounter Visit Diagnoses Diagnosis Abnormal CT of the abdomen Nonspecific (abnormal) findings on radiological and other examination of abdominal area, including retroperitoneum documented in this encounter Care Teams Dat Instructor Relationship Specialty Start Date End Date America Stack MD [address] [facility] [place] [address] PCP - General Internal Medicine 03/04/17 Lisa Solomon DO [address] [place] [address] [email or web address] Historical LMR Provider 02/23/17 05/17/21 Christian Nguyen MD [email or web address] Historical LMR Provider 02/23/17 05/17/21 Sydney Zimmerman MD [address] [place] [address] Historical LMR Provider 02/23/17 Shane Linda DO [address] [place] [address] Orthopedics [facility] Sports Medicine, [place] [address] [email or web address] Historical LMR Provider 02/23/17 Eli Dobbins MD [address] [place] [address], [address] [place] [address] [email or web address] Historical LMR Provider 02/23/17 America Stack MD [address] [facility] [place] [address] Historical LMR Provider 02/23/17 Low Mendoza MD [address] [place] [address], [facility] [address] [place] [address] [email or web address] Historical LMR Provider 02/23/17 05/17/21 Suni Guerrero MD [address] [address] Historical LMR Provider 02/23/17 2 Elizabet Elias [address] [place] [address] [email or web address] Genetic Counselor Genetics 04/25/20 documented as of this encounter Additional Source Comments The information contained in this document represents components of the legal health record. It is not the complete legal health record.[facility]
--- OUTSIDE RECORDS SUMMARY | 2025-01-02 16:36 | XMS_ITS | Encounter Summary ---
Author Organization [facility] Address [address] [place] [address] Phone Care Team Providers Care Tobacco Packing Machine Operator Name Role Phone Lisa Solomon Angie GANDHI Unavailable [phone] Christian Nguyen MD Unavailable [email or web address] Sydney Zimmerman MD Unavailable [phone] Shane Linda DO Unavailable [phone] Eli Dobbins MD Unavailable [phone] America Stack MD Unavailable [phone] Low Mendoza MD Unavailable Suni Guerrero MD Unavailable + [phone] America Stack MD Primary Care Provider Elizabet Elias Unavailable [phone] Encounter Details Date Type Department Care Team (Late st Contact Info) Description 03/29/2018 Procedure Pass [facility], [address] [address] Social History Tobacco Use Types Packs/Day Years [...] on filedocumented in this encounter Care Teams Tobacco Packing Machine Operator Relationship Specialty Start Date End Date America Stack MD [address] [facility] [place] [address] PCP - General Internal Medicine 03/04/17 Lisa Solomon DO [address] [place] [address] [email or web address] Historical LMR Provider 02/23/17 05/17/21 Christian Nguyen MD [email or web address] Historical LMR Provider 02/23/17 05/17/21 Sydney Zimmerman MD [address] [place] [address] Historical LMR Provider 02/23/17 Shane Linda DO [address] [place] [address] [facility] Medicine, [place] [address] [email or web address] Historical LMR Provider 02/23/17 Eli Dobbins MD [address] [place] [address], [address] [place] [address] [email or web address] Historical LMR Provider 02/23/17 America Stack MD [address] [place] [address] [place] [address] Historical LMR Provider 02/23/17 Low Mendoza MD 40 [facility] [address] [place] [address] [email or web address] Historical LMR Provider 02/23/17 05/17/21 Suni Guerrero MD [address] [place] [id number] Historical LMR Provider 02/23/17 2 Elizabet Elias [address] [place] [address] [email or web address] Genetic Counselor Genetics 04/25/20 documented as of this encounter Additional Source Comments The information contained in this document represents components of the legal health record. It is not the complete legal health record.[facility]
--- OUTSIDE RECORDS SUMMARY | 2025-01-02 16:36 | XMS_ITS | Encounter Summary ---
Author Organization [facility] Address [address] [place] [address] Phone Care Team Providers Care Self Sealing Fuel Tank Repairer Name Role Phone Lisa Solomon Angie GANDHI Unavailable [phone] Christian Nguyen MD Unavailable [email or web address] Sydney Zimmerman MD Unavailable [phone] Sahne Linda DO Unavailable [phone] Eli Dobbins MD Unavailable [phone] America Stack MD Unavailable Low Mendoza MD Unavailable Suni Guerrero MD Unavailable + [phone] America Stack MD Primary Care Provider Elizabet Elias Unavailable [phone] Reason for Referral * MRI/CAT Scan - Closed Specialty Diagnoses / Procedures Referred By Vanessa harper Referred To Contact Radiology Diagnoses Malignant neoplasm of gallbladder Procedures CT Abdomen/Pelvis Yogesh Terrazas MD Phone: tel: fax: Referral ID Status Reason Start Date Expiration Date Visits Re quested Visits Authorized [id number] Closed 07/04/2020 07/04/2021 1 1 * MRI/CAT Scan - Closed Specialty Diagnoses / Procedures Referred By Vanessa harper Referred To Contact Radiology Diagnoses Malignant neoplasm of gallbladder Procedures CT Chest Yogesh Terrazas MD Phone: tel: fax: Referral ID Status Reason Start Date Expiration Date Visits Re quested Visits Authorized [id number] Closed 07/04/2020 07/04/2021 1 1 Encounter Details Date Type Department Care Team (Late st Contact Info) Description 07/04/2020 Ancillary Orders Virtual Department [address] [place] [address] Yogesh Terrazas MD [address] [place] [address] Malignant neoplasm of gallbladder Social History Tobacco Use Types Packs/Day Years Used Date Smoking Tobacco: Never Smokeless Tobacco: Never Alcohol Use Standard Drinks/Week Comments No 0 (1 standard drink = 0.6 oz pur e alcohol) Comments No Sex and Gender Information Value Date Recorded Sex Assigned at Female 09/07/2018 6:16 AM EDT Legal Sex Female 9:30 PM EDT Gender Identity Female 09/07/2018 6:16 AM EDT Sexual Orientation Straight 09/07/2018 6: 16 AM EDT documented as of this encounter Plan of Treatment Not on file documented as of this encounter Results * CT ABDOMEN/PELVIS WITH CONTRAST (07/12/2020 9:55 AM EST) Anatomical Region Laterality Modality Abdomen, Pelvis Computed Tomogra phy 07/12/2020 10:1 9 AM EST Impressions 07/12/2020 10:50 AM EST 1. 3 mm bilateral nodules are stable and very possibly postinflammatory. 2. Similar bilateral mastectomy defects. Increased soft tissue density within the anterior abdominal wall on the right at the mastectomy defect is stable and very likely post interventional. No findings suspicious for recurrent malignancy. 3. No findings suspicious for metastatic disease. CT ABDOMEN AND PELVIS: Liver/spleen: Liver appears normal. Spleen appears normal. Pancreas/biliary: Pancreas appears normal. No evidence of biliary ductal dilatation. Clips in gallbladder fossa from previous cholecystectomy, new since 02/28/2020. No biliary ductal dilatation. Adrenals/: Adrenals appear normal. Kidneys appear normal. Ureters normal in caliber. The bladder is underdistended and poorly evaluated. Evidence of a small urachal remnant. No evidence of adnexal masses. GI: No marked bowel distention or evidence of bowel wall thickening. No free air. Lymph node/lymphatics: No measurable lymphadenopathy. Cardiovascular: Abdominal aorta normal in caliber. The portal vein is patent. Musculoskeletal: Increased streaky soft tissue attenuation within the anterior abdominal wall, presumably post-surgical. No organized fluid collections. No suspicious lytic or blastic lesions within the bones. IMPRESSION: 1. Status post cholecystectomy. No evidence of local spread of malignancy or metastatic disease within the abdomen or pelvis. 2. The bladder is poorly evaluated. Narrative 07/12/2020 10:50 AM EST HISTORY: Gallbladder and right breast malignancy, restaging. COMPARISON: CT chest 02/28/2020. TECHNIQUE: After the administration of IV and oral contrast scanning initially obtained from lung apex to base. Scanning then obtained from dome of the liver through the inferior pubic rami during portal venous phase. Sagittal and coronal reformats generated. Automated exposure control utilized. FINDINGS: CT CHEST: Right lung/pleura: 3 stable mm nodule intimately associated with the major fissure (image 142). Stable small linear density associated with the major fissure (image 129). No suspicious pulmonary nodules or masses. Minimal dependent atelectasis in the lower lobe. No findings suspicious for pulmonary infiltrates. No significant interstitial changes. No bronchiectasis. No pleural effusion. Left lung/pleura: Stable 3 mm subpleural nodule in the upper lobe anteriorly (image 101). No suspicious pulmonary nodules or masses. Minimal dependent atelectasis in the lower lobe. No findings suspicious for pulmonary infiltrates. No significant interstitial changes. No bronchiectasis. No pleural effusion. Trachea/mainstem bronchi: No significant abnormalities. Lymph nodes/lymphatics: No measurable axillary lymphadenopathy. No other evidence of measurable lymphadenopathy within the chest. Cardiovascular: Heart size normal. No pericardial effusion. No definite PE. No other significant changes. Thyroid: No significant changes. Esophagus: No significant changes. Musculoskeletal: Similar bilateral mastectomy defects. Stable increased soft tissue density in the right chest wall at the mastectomy defect, presumably post interventional. No suspicious lytic or blastic lesions within the bones. Procedure Note Nikolas Reyna MD - 07/12/2020 HISTORY: Gallbladder and right breast malignancy, restaging. COMPARISON: CT chest 02/28/2020. TECHNIQUE: After the administration of IV and oral contrast scanninginitially obtained from lung apex to base. Scanning then obtained fromdome of the liver through the inferior pubic rami during portal venousphase. Sagittal and coronal reformats generated. Automated exposurecontrol utilized. FINDINGS: CT CHEST: Right lung/pleura: 3 stable mm nodule intimately associated with the majorfissure (image 142). Stable small linear density associated with the majorfissure (image 129). No suspicious pulmonary nodules or masses. Minimaldependent atelectasis in the lower lobe. No findings suspicious forpulmonary infiltrates. No significant interstitial changes. Nobronchiectasis. No pleural effusion. Left lung/pleura: Stable 3 mm subpleural nodule in the upper lobeanteriorly (image 101). No suspicious pulmonary nodules or masses. Minimaldependent atelectasis in the lower lobe. No findings suspicious forpulmonary infiltrates. No significant interstitial changes. Nobronchiectasis. No pleural effusion. Trachea/mainstem bronchi: No significant abnormalities. Lymph nodes/lymphatics: No measurable axillary lymphadenopathy. No otherevidence of measurable lymphadenopathy within the chest. Cardiovascular: Heart size normal. No pericardial effusion. No definitePE. No other significant changes. Thyroid: No significant changes. Esophagus: No significant changes. Musculoskeletal: Similar bilateral mastectomy defects. Stable increasedsoft tissue density in the right chest wall at the mastectomy defect,presumably post interventional. No suspicious lytic or blastic lesionswithin the bones. IMPRESSION: 1. 3 mm bilateral nodules are stable and very possibly postinflammatory. 2. Similar bilateral mastectomy defects. Increased soft tissue densitywithin the anterior abdominal wall on the right at the mastectomy defectis stable and very likely post interventional. No findings suspicious forrecurrent malignancy. 3. No findings suspicious for metastatic disease. CT ABDOMEN AND PELVIS: Liver/spleen: Liver appears normal. Spleen appears normal. Pancreas/biliary: Pancreas appears normal. No evidence of biliary ductaldilatation. Clips in gallbladder fossa from previous cholecystectomy, newsince 02/28/2020. No biliary ductal dilatation. Adrenals/: Adrenals appear normal. Kidneys appear normal. Uretersnormal in caliber. The bladder is underdistended and poorly evaluated.Evidence of a small urachal remnant. No evidence of adnexal masses. GI: No marked bowel distention or evidence of bowel wall thickening. Nofree air. Lymph node/lymphatics: No measurable lymphadenopathy. Cardiovascular: Abdominal aorta normal in caliber. The portal vein ispatent. Musculoskeletal: Increased streaky soft tissue attenuation within theanterior abdominal wall, presumably post-surgical. No organized fluidcollections. No suspicious lytic or blastic lesions within the bones. IMPRESSION: 1. Status post cholecystectomy. No evidence of local spread of malignancyor metastatic disease within the abdomen or pelvis. 2. The bladder is poorly evaluated. us Yogesh Terrazas MD IMG CT ABD/PELVIS Final Resu lt * CT CHEST WITH CONTRAST (07/12/2020 9:55 AM EST) Anatomical Region Laterality Modality Chest Computed Tomogra phy 07/12/2020 10:1 9 AM EST Impressions 07/12/2020 10:50 AM EST 1. 3 mm bilateral nodules are stable and very possibly postinflammatory. 2. Similar bilateral mastectomy defects. Increased soft tissue density within the anterior abdominal wall on the right at the mastectomy defect is stable and very likely post interventional. No findings suspicious for recurrent malignancy. 3. No findings suspicious for metastatic disease. CT ABDOMEN AND PELVIS: Liver/spleen: Liver appears normal. Spleen appears normal. Pancreas/biliary: Pancreas appears normal. No evidence of biliary ductal dilatation. Clips in gallbladder fossa from previous cholecystectomy, new since 02/28/2020. No biliary ductal dilatation. Adrenals/: Adrenals appear normal. Kidneys appear normal. Ureters normal in caliber. The bladder is underdistended and poorly evaluated. Evidence of a small urachal remnant. No evidence of adnexal masses. GI: No marked bowel distention or evidence of bowel wall thickening. No free air. Lymph node/lymphatics: No measurable lymphadenopathy. Cardiovascular: Abdominal aorta normal in caliber. The portal vein is patent. Musculoskeletal: Increased streaky soft tissue attenuation within the anterior abdominal wall, presumably post-surgical. No organized fluid collections. No suspicious lytic or blastic lesions within the bones. IMPRESSION: 1. Status post cholecystectomy. No evidence of local spread of malignancy or metastatic disease within the abdomen or pelvis. 2. The bladder is poorly evaluated. Narrative 07/12/2020 10:50 AM EST HISTORY: Gallbladder and right breast malignancy, restaging. COMPARISON: CT chest 02/28/2020. TECHNIQUE: After the administration of IV and oral contrast scanning initially obtained from lung apex to base. Scanning then obtained from dome of the liver through the inferior pubic rami during portal venous phase. Sagittal and coronal reformats generated. Automated exposure control utilized. FINDINGS: CT CHEST: Right lung/pleura: 3 stable mm nodule intimately associated with the major fissure (image 142). Stable small linear density associated with the major fissure (image 129). No suspicious pulmonary nodules or masses. Minimal dependent atelectasis in the lower lobe. No findings suspicious for pulmonary infiltrates. No significant interstitial changes. No bronchiectasis. No pleural effusion. Left lung/pleura: Stable 3 mm subpleural nodule in the upper lobe anteriorly (image 101). No suspicious pulmonary nodules or masses. Minimal dependent atelectasis in the lower lobe. No findings suspicious for pulmonary infiltrates. No significant interstitial changes. No bronchiectasis. No pleural effusion. Trachea/mainstem bronchi: No significant abnormalities. Lymph nodes/lymphatics: No measurable axillary lymphadenopathy. No other evidence of measurable lymphadenopathy within the chest. Cardiovascular: Heart size normal. No pericardial effusion. No definite PE. No other significant changes. Thyroid: No significant changes. Esophagus: No significant changes. Musculoskeletal: Similar bilateral mastectomy defects. Stable increased soft tissue density in the right chest wall at the mastectomy defect, presumably post interventional. No suspicious lytic or blastic lesions within the bones. Procedure Note Nikolas Reyna MD - 07/12/2020 HISTORY: Gallbladder and right breast malignancy, restaging. COMPARISON: CT chest 02/28/2020. TECHNIQUE: After the administration of IV and oral contrast scanninginitially obtained from lung apex to base. Scanning then obtained fromdome of the liver through the inferior pubic rami during portal venousphase. Sagittal and coronal reformats generated. Automated exposurecontrol utilized. FINDINGS: CT CHEST: Right lung/pleura: 3 stable mm nodule intimately associated with the majorfissure (image 142). Stable small linear density associated with the majorfissure (image 129). No suspicious pulmonary nodules or masses. Minimaldependent atelectasis in the lower lobe. No findings suspicious forpulmonary infiltrates. No significant interstitial changes. Nobronchiectasis. No pleural effusion. Left lung/pleura: Stable 3 mm subpleural nodule in the upper lobeanteriorly (image 101). No suspicious pulmonary nodules or masses. Minimaldependent atelectasis in the lower lobe. No findings suspicious forpulmonary infiltrates. No significant interstitial changes. Nobronchiectasis. No pleural effusion. Trachea/mainstem bronchi: No significant abnormalities. Lymph nodes/lymphatics: No measurable axillary lymphadenopathy. No otherevidence of measurable lymphadenopathy within the chest. Cardiovascular: Heart size normal. No pericardial effusion. No definitePE. No other significant changes. Thyroid: No significant changes. Esophagus: No significant changes. Musculoskeletal: Similar bilateral mastectomy defects. Stable increasedsoft tissue density in the right chest wall at the mastectomy defect,presumably post interventional. No suspicious lytic or blastic lesionswithin the bones. IMPRESSION: 1. 3 mm bilateral nodules are stable and very possibly postinflammatory. 2. Similar bilateral mastectomy defects. Increased soft tissue densitywithin the anterior abdominal wall on the right at the mastectomy defectis stable and very likely post interventional. No findings suspicious forrecurrent malignancy. 3. No findings suspicious for metastatic disease. CT ABDOMEN AND PELVIS: Liver/spleen: Liver appears normal. Spleen appears normal. Pancreas/biliary: Pancreas appears normal. No evidence of biliary ductaldilatation. Clips in gallbladder fossa from previous cholecystectomy, newsince 02/28/2020. No biliary ductal dilatation. Adrenals/: Adrenals appear normal. Kidneys appear normal. Uretersnormal in caliber. The bladder is underdistended and poorly evaluated.Evidence of a small urachal remnant. No evidence of adnexal masses. GI: No marked bowel distention or evidence of bowel wall thickening. Nofree air. Lymph node/lymphatics: No measurable lymphadenopathy. Cardiovascular: Abdominal aorta normal in caliber. The portal vein ispatent. Musculoskeletal: Increased streaky soft tissue attenuation within theanterior abdominal wall, presumably post-surgical. No organized fluidcollections. No suspicious lytic or blastic lesions within the bones. IMPRESSION: 1. Status post cholecystectomy. No evidence of local spread of malignancyor metastatic disease within the abdomen or pelvis. 2. The bladder is poorly evaluated. 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 Historical LMR Provider 02/23/17 05/17/21 Sydney Zimmerman MD [address] [place] [address] Historical LMR Provider 02/23/17 Shane Linda DO [address] [place] [address] Orth[facility] Medicine, [place] [address] [email or web address] Historical LMR Provider 02/23/17 Eli Dobbins MD [address] [place] [address], [address] [place] [address] [email or web address] Historical LMR Provider 02/23/17 America Stack MD [address] [place] [address] [place] Historical LMR Provider 02/23/17 Low Mendoza MD [address] [place] [address] [email or web address] Historical LMR Provider 02/23/17 05/17/21 Suni Guerrero MD [address] [place] [id number] Historical LMR Provider 02/23/17 2 Elizabet Elias [address] [place] [address] [email or web address] Genetic Counselor Genetics 04/25/20 documented as of this encounter Additional Source Comments The information contained in this document represents components of the legal health record. It is not the complete legal health record.[facility]
--- OUTSIDE RECORDS SUMMARY | 2025-01-02 16:36 | XMS_ITS | Encounter Summary ---
Author Organization [facility] Address [address] [place] [address] Phone Care Team Providers Care Php Magento Developer Name Role Phone Lisa Solomon Angie GANDHI Unavailable [phone] Christian Nguyen MD Unavailable [email or web address] Sydney Zimmerman MD Unavailable [phone] Shane Linda DO Unavailable [phone] Eli Dobbins MD Unavailable [phone] America Stack MD Unavailable [phone] Low Mendoza MD Unavailable Suni Guerrero MD Unavailable + [phone] America Stack MD Primary Care Provider Elizabet Elias Unavailable [phone] Reason for Referral * MRI/CAT Scan - Closed Specialty Diagnoses / Procedures Referred By Vanessa harper Referred To Contact Radiology Diagnoses Swelling in chest Procedures CT Chest Violeta Beth MD Phone: tel: fax: [email or web address] Referral ID Status Reason Start Date Expiration Date Visits Re quested Visits Authorized [id number] Closed 10/08/2017 10/08/2018 1 1 Encounter Details Date Type Department Care Team (Late st Contact Info) Description 10/08/2017 Ancillary Orders Virtual Department [address] [place] [address] Violeta Beth MD [address] [place] [address] [email or web address] in chest Social History Tobacco Use Types Packs/Day Years [...] as of this encounter Results * CT CHEST WITH CONTRAST (10/25/2017 11:07 AM EDT) Anatomical Region Laterality Modality Chest Computed Tomogra phy 10/25/2017 11:1 8 AM EDT Impressions 10/25/2017 11:24 AM EDT Soft tissue density along the right anterior chest wall of undetermined etiology. Post surgical change versus breast cancer recurrence are in the differential diagnosis. No such findings are evident on the left. Bibasilar pulmonary compressive atelectasis. 3 mm shaggy left upper lobe anterior pulmonary nodule in the subpleural space which is of indeterminate etiology. TOTAL CTDIvol: 20.20 mGy S/S: Swelling right upper chest wall, history of bilateral breast cancer status post bilateral mastectomies POS - [id number] Narrative 10/25/2017 11:24 AM EDT COMPARISON: None TECHNIQUE: After the administration of intravenous contrast, computed tomography is obtained from lung apex to base. Sagittal and coronal reformats generated. Automated exposure control utilized. FINDINGS: The thyroid gland is unremarkable. No significant axillary pathology is seen. There is soft tissue density and possible scarring/skin retraction along the right anterior chest wall. Without prior studies is difficult to determine if this is post surgical change or conceivably could represent recurrent breast carcinoma. Minimal soft tissue density is evident along the left anterior chest wall. No mediastinal or hilar lymphadenopathy is evident. There is bibasilar compressive atelectasis. No definitive acute infiltration is seen. A vague change in nodules evident in the anterior left upper lobe measuring 3 mm in diameter. No pleural fluid is seen. No retrocrural lymphadenopathy is evident. No adrenal masses as far as his seen are noted. The liver is notable for some fatty infiltration without focal findings evident. There are mild degenerative changes in the thoracic spine. Procedure Note Dheeraj Young MD - 10/25/2017 COMPARISON: None TECHNIQUE: After the administration of intravenous contrast, computedtomography is obtained from lung apex to base. Sagittal and coronalreformats generated. Automated exposure control utilized. FINDINGS: The thyroid gland is unremarkable. No significant axillary pathology isseen. There is soft tissue density and possible scarring/skin retraction alongthe right anterior chest wall. Without prior studies is difficult todetermine if this is post surgical change or conceivably could representrecurrent breast carcinoma. Minimal soft tissue density is evident alongthe left anterior chest wall. No mediastinal or hilar lymphadenopathy is evident. There is bibasilar compressive atelectasis. No definitive acuteinfiltration is seen. A vague change in nodules evident in the anteriorleft upper lobe measuring 3 mm in diameter. No pleural fluid is seen. No retrocrural lymphadenopathy is evident. No adrenal masses as far as his seen are noted. The liver is notable forsome fatty infiltration without focal findings evident. There are mild degenerative changes in the thoracic spine. IMPRESSION: Soft tissue density along the right anterior chest wall of undeterminedetiology. Post surgical change versus breast cancer recurrence are in thedifferential diagnosis. No such findings are evident on the left. Bibasilar pulmonary compressive atelectasis. 3 mm shaggy left upper lobe anterior pulmonary nodule in the subpleuralspace which is of indeterminate etiology. TOTAL CTDIvol: 20.20 mGy S/S: Swelling right upper chest wall, history of bilateral breast cancerstatus post bilateral mastectomies POS - [id number] us Violeta Dulala MD IMG CT CHEST Final Result documented in this encounter Visit Diagnoses Diagnosis Swelling in chest Swelling, mass, or lump in chest Swelling in chest Swelling, mass, or lump in chest documented in this encounter Care Teams Php Magento Developer Relationship Specialty Start Date End Date America Stack MD [address] [facility] [place] [address] PCP - General Internal Medicine 03/04/17 Lisa Solomon DO [address] [place] [address] [email or web address] Historical LMR Provider 02/23/17 05/17/21 Christian Nguyen MD [email or web address] Historical LMR Provider 02/23/17 05/17/21 Sydney Zimmerman MD [address] [place] [address] Historical LMR Provider 02/23/17 Shane Linda DO [address] [place] [address] Orthopedics [facility] Sports Medicine, [place] [address] [email or web address] Historical LMR Provider 02/23/17 Eli Dobbins MD [address] [place] [address], 2nd [place] [address] [email or web address] Historical LMR Provider 02/23/17 America Stack MD [address] [facility] [place] [address] Historical LMR Provider 02/23/17 Low Mendoza MD [address] [facility], [facility] [address] [place] [address] [email or web address] Historical LMR Provider 02/23/17 05/17/21 Suni Guerrero MD [address] [place] [address] Historical LMR Provider 02/23/17 2 Elizabet Elias [address] [place] [address] [email or web address] Genetic Counselor Genetics 04/25/20 documented as of this encounter Additional Source Comments The information contained in this document represents components of the legal health record. It is not the complete legal health record.[facility]
--- OUTSIDE RECORDS SUMMARY | 2025-01-02 16:36 | XMS_ITS | Encounter Summary ---
Author Organization [facility] Address [address] [place] [address] Phone Care Team Providers Care Cage Supervisor Name Role Phone Lisa Solomno Angie GANDHI Unavailable [phone] Christian Nguyen MD Unavailable [facility] [email or web address] [email or web address] [email or web address] Sydney Zimmerman MD Unavailable [phone] Shane Linda DO Unavailable [phone] Eli Dobbins MD Unavailable [phone] America Stack MD Unavailable Low Mendoza MD Unavailable Suni Guerrero MD Unavailable + [phone] America Stack MD Primary Care Provider Elizabet Elias Unavailable [phone] Encounter Details Date Type Department Care Team (Late st Contact Info) Description 08/24/2017 Procedure Pass [facility], [address] [address] Social History Tobacco Use Types Packs/Day Years [...] on filedocumented in this encounter Care Teams Cage Supervisor Relationship Specialty Start Date End Date America Stack MD [address] [place] [address] PCP - General Internal Medicine 03/04/17 Lisa Solomon DO [address] [place] [address] [email or web address] Historical LMR Provider 02/23/17 05/17/21 Christian Nguyen MD [email or web address] [email or web address] Historical LMR Provider 02/23/17 05/17/21 Sydney Zimmerman MD [address] [place] [address] Historical LMR Provider 02/23/17 Shane Linda DO [address] [place] [address] Orthopedics & Sports Medicine, [place] [address] [email or web address] Historical LMR Provider 02/23/17 Eli Dobbins MD [address] [place] [address], [address] [place] [address] [email or web address] Historical LMR Provider 02/23/17 America Stack MD [address] [place] [address] [place] [address] Historical LMR Provider 02/23/17 Low Mendoza MD 40 [facility] 202 [place] [address] [email or web address] Historical LMR Provider 02/23/17 05/17/21 Suni Guerrero MD [address] [place] [address] Historical LMR Provider 02/23/17 2 Elizabet Elias [address] [place] [address] [email or web address] Genetic Counselor Genetics 04/25/20 documented as of this encounter Additional Source Comments The information contained in this document represents components of the legal health record. It is not the complete legal health record.[facility]
--- OUTSIDE RECORDS SUMMARY | 2025-01-02 16:36 | XMS_ITS | Encounter Summary ---
Author Organization [facility] Address [address] [place] [address] Care Team Providers Care Counselor/Art Therapist Name Role Phone Jenna Osborn MD Primary Care Provider Nguyen Clarke MD Primary Care Provider [phone] Encounter Details Date Type Department Care Team Description 08/24/2012 Business Doc Medical Records [address] [place] [address] Abstract, Provider Social History Tobacco Use Types [...] on filedocumented in this encounter Care Teams Counselor/Art Therapist Relationship Specialty Start Date End Date Jenna Osborn MD PCP - General Internal Medicine 09/01/11 01/29/15 Nguyen Cantrell MD [address] [place] [address] PCP - General Internal Medicine 01/30/15 documented as of this encounter
--- OUTSIDE RECORDS SUMMARY | 2025-01-02 16:37 | XMS_ITS | Encounter Summary ---
Author Organization [facility] Address [address] [place] [address] Phone Care Team Providers Care System Development Engineer Name Role Phone Lisa Solomon Angie GANDHI Unavailable [phone] Christian Nguyen MD Unavailable [email or web address] Sydney Zimmerman MD Unavailable [phone] Shane Linda DO Unavailable [phone] Eli Dobbins MD Unavailable [phone] America Stack MD Unavailable Low Mendoza MD Unavailable Suni Guerrero MD Unavailable + [phone] America Stack MD Primary Care Provider Elizabet Elias Unavailable [phone] Encounter Details Date Type Department Care Team (Late st Contact Info) Description 04/01/2020 Procedure Pass [place] Admitting Dept - Virtual Department [address] [place] [address] Social History Tobacco Use Types Packs/Day Years [...] on filedocumented in this encounter Care Teams System Development Engineer Relationship Specialty Start Date End Date America Stack MD [address] [place] [address] PCP - General Internal Medicine 03/04/17 Lisa Solomon DO [address] [place] [address] [email or web address] Historical LMR Provider 02/23/17 05/17/21 Christian Nguyen MD [email or web address] Historical LMR Provider 02/23/17 05/17/21 Sydney Zimmerman MD [address] [place] [address] Historical LMR Provider 02/23/17 Shane Linda DO [address] [place] [address] Orthopedics & Sports Medicine, [place] [address] [email or web address] Historical LMR Provider 02/23/17 Eli Dobbins MD [address] [place] [address], [address] [place] [address] [email or web address] Historical LMR Provider 02/23/17 America Stack MD [address] [place] [address] [place] [address] Historical LMR Provider 02/23/17 Low Mendoza MD 40 [facility], [facility] [address] [place] [address] [email or web address] Historical LMR Provider 02/23/17 05/17/21 Suni Guerrero MD [address] [place] [address] Historical LMR Provider 02/23/17 2 Elizabet Elias [address] [place] [address] [email or web address] Genetic Counselor Genetics 04/25/20 documented as of this encounter Additional Source Comments The information contained in this document represents components of the legal health record. It is not the complete legal health record.[facility]
--- OUTSIDE RECORDS SUMMARY | 2025-01-02 16:37 | XMS_ITS | Encounter Summary ---
Author Organization [facility] Address [address] [place] [address] Phone Care Team Providers Care Drug Safety Physician Name Role Phone Lisa Solomon Angie GANDHI Unavailable [phone] Christian Nguyen MD Unavailable [facility] [email or web address] [email or web address] Sydney Zimmerman MD Unavailable [phone] Shane Linda DO Unavailable [phone] Eli Dobbins MD Unavailable [phone] America Stack MD Unavailable Low Mendoza MD Unavailable Suni Guerrero MD Unavailable + [phone] America Stack MD Primary Care Provider Elizabet Elias Unavailable [phone] Encounter Details Date Type Department Care Team (Late st Contact Info) Description 03/19/2020 Ancillary Orders [facility],Outside Imaging [address] [place], [place] [id number] System, Provider Not In, [facility] Partners [address] [address] Social History Tobacco Use Types Packs/Day Years [...] as of this encounter Results * US Abdomen Outside (No Interpretation) (03/08/2020 12:05 AM EDT) Narrative SYSTEMGENERATED, DOCUMENTATION - 03/19/2020 1:55 PM EST This study is for PACS storage only and not for interpretation. us Provider Not In System PhD IMG OUTSIDE IMAGING W /OUT INTERPRETATION Final Result documented in this encounter Visit Diagnoses Not on filedocumented in this encounter Care Teams Drug Safety Physician Relationship Specialty Start Date End Date America Stack MD [address] [facility] [place] [address] PCP - General Internal Medicine 03/04/17 Lisa Solomon DO [address] [place] [address] [email or web address] Historical LMR Provider 02/23/17 05/17/21 Christian Nguyen MD [email or web address] Historical LMR Provider 02/23/17 05/17/21 Sydney Zimmerman MD [address] [place] [address] Historical LMR Provider 02/23/17 Shane Linda DO [address] [place] [address] Orthopedics & Sports Medicine, [place] [address] [email or web address] Historical LMR Provider 02/23/17 Eli Dobbins MD [address] [place] [address] [email or web address] Historical LMR Provider 02/23/17 America Stack MD [address] [place] [address] [place] [address] Historical LMR Provider 02/23/17 Low Mendoza MD [address] [place] [address], [facility] [address] [place] [address] [email or web address] Historical LMR Provider 02/23/17 05/17/21 Suni Guerrero MD [address], [place] [address] Historical LMR Provider 02/23/17 2 Elizabet Elias [address] [place] [address] [email or web address] Genetic Counselor Genetics 04/25/20 documented as of this encounter Additional Source Comments The information contained in this document represents components of the legal health record. It is not the complete legal health record.[facility]
--- OUTSIDE RECORDS SUMMARY | 2025-01-02 16:37 | XMS_ITS | Encounter Summary ---
Author Organization [facility] Address [address] [place] [address] Phone Care Team Providers Care Victim Witness Administrator Name Role Phone Lisa Solomon Angie GANDHI Unavailable [phone] Christian Nguyen MD Unavailable [email or web address] [email or web address] Sydney Zimmerman MD Unavailable [phone] Shane Linda DO Unavailable [phone] Eli Dobbins MD Unavailable [phone] America Stack MD Unavailable Low Mendoza MD Unavailable Suni Guerrero MD Unavailable + [phone] America Stack MD Primary Care Provider Elizabet Elias Unavailable [phone] Encounter Details Date Type Department Care Team (Late st Contact Info) Description 03/19/2020 Ancillary Orders [facility],Outside Imaging [address] [place], [place] [phone] System, Provider Not In, PhD Partners [address] [address] Social History Tobacco Use Types Packs/Day Years [...] as of this encounter Results * CT Chest Outside (No Interpretation) (02/28/2020 12:00 AM EDT) Narrative SYSTEMGENERATED, DOCUMENTATION - 03/19/2020 1:56 PM EST This study is for PACS storage only and not for interpretation. us Provider Not In System PhD IMG OUTSIDE IMAGING W /OUT INTERPRETATION Final Result documented in this encounter Visit Diagnoses Not on filedocumented in this encounter Care Teams Victim Witness Administrator Relationship Specialty Start Date End Date America Stack MD [address] [facility] [place] [address] PCP - General Internal Medicine 03/04/17 Lisa Solomon DO [address] [place] [address] [email or web address] Historical LMR Provider 02/23/17 05/17/21 Christian Nguyen MD [email or web address] Historical LMR Provider 02/23/17 05/17/21 Sydney Zimmerman MD [address] [place] [address] Historical LMR Provider 02/23/17 Shane Linda DO [address] [place] [address] Orthopedics & Sports Medicine, [place] [address] [email or web address] Historical LMR Provider 02/23/17 Eli Dobbins MD [address] [place] [address] [email or web address] Historical LMR Provider 02/23/17 America Stack MD [address] [place] [address] [place] [address] Historical LMR Provider 02/23/17 Low Mendoza MD [address] [place] [address], [facility] [address] [place] [address] [email or web address] Historical LMR Provider 02/23/17 05/17/21 Suni Guerrero MD [address] [address] Historical LMR Provider 02/23/17 2 Elizabet Elias [address] [place] [address] [email or web address] .[email or web address] Genetic Counselor Genetics 04/25/20 documented as of this encounter Additional Source Comments The information contained in this document represents components of the legal health record. It is not the complete legal health record.[facility]
--- OUTSIDE RECORDS SUMMARY | 2025-01-02 16:37 | XMS_ITS | Encounter Summary ---
Author Organization [facility] Address [address] [place] [address] Phone Care Team Providers Care Waterproofing Mixer Name Role Phone Lisa Solomon Angie GANDHI Unavailable [phone] Christian Nguyen MD Unavailable health [email or web address] [email or web address] Sydney Zimmerman MD Unavailable [phone] Shane Linda DO Unavailable [phone] Eli Dobbins MD Unavailable [phone] America Stack MD Unavailable Low Mendoza MD Unavailable Suni Guerrero MD Unavailable + [phone] America Stack MD Primary Care Provider Elizabet Elias Unavailable [phone] Encounter Details Date Type Department Care Team (Late st Contact Info) Description 03/19/2020 Ancillary Orders [facility],Outside Imaging [address] [place], [place] [phone] System, Provider Not In, PhD Partners [address] [address] Social History Tobacco Use Types Packs/Day Years [...] as of this encounter Results * MRI Outside Upper Extremity (No Interpretation) (06/29/2019 12:00 AM EST) Narrative SYSTEMGENERATED, DOCUMENTATION - 03/19/2020 1:58 PM EST This study is for PACS storage only and not for interpretation. us Provider Not In System PhD IMG OUTSIDE IMAGING W /OUT INTERPRETATION Final Result documented in this encounter Visit Diagnoses Not on filedocumented in this encounter Care Teams Waterproofing Mixer Relationship Specialty Start Date End Date America Stack MD 1962 [facility] [place] [address] PCP - General Internal Medicine 03/04/17 Lisa Solomon DO [address] [place] [address] [email or web address] Historical LMR Provider 02/23/17 05/17/21 Christian Nguyen MD [email or web address] Historical LMR Provider 02/23/17 05/17/21 Sydney Zimmerman MD [address] [place] [address] Historical LMR Provider 02/23/17 Shane Linda DO [address] [place] [address] Orthopedics & Sports Medicine, [place] [address] [email or web address] Historical LMR Provider 02/23/17 Eli Dobbins MD [address] [place] [address] [email or web address] Historical LMR Provider 02/23/17 America Stack MD [address] [place] [address] [place] [address] Historical LMR Provider 02/23/17 Low Mendoza MD [address] [place] [address], [facility] [address] [place] [address] [email or web address] Historical LMR Provider 02/23/17 05/17/21 Suni Guerrero MD [address], [place] [address] Historical LMR Provider 02/23/17 2 Elizabet Elias [address] [place] [address] [email or web address] .[facility] Genetic Counselor Genetics 04/25/20 documented as of this encounter Additional Source Comments The information contained in this document represents components of the legal health record. It is not the complete legal health record.[facility]
--- OUTSIDE RECORDS SUMMARY | 2025-01-02 16:37 | XMS_ITS | Encounter Summary ---
Author Organization [facility] Address [address] [place] [address] Phone Care Team Providers Care Mushroom Growing Supervisor Name Role Phone Lisa Solomon Angie GANDHI Unavailable [phone] Christian Nguyen MD Unavailable [email or web address] Sydney Zimmerman MD Unavailable [phone] Shane Linda DO Unavailable [phone] Eli Dobbins MD Unavailable [phone] America Stack MD Unavailable [phone] Low Mendoza MD Unavailable Suni Guerrero MD Unavailable + [phone] America Stack MD Primary Care Provider Elizabet Elias Unavailable [phone] Encounter Details Date Type Department Care Team (Late st Contact Info) Description 07/04/2020 Procedure Pass [facility], Ct Scan - [address] [address] Social History Tobacco Use Types Packs/Day Years [...] on filedocumented in this encounter Care Teams Mushroom Growing Supervisor Relationship Specialty Start Date End Date America Stack MD [address] [place] [address] PCP - General Internal Medicine 03/04/17 Lisa Solomon DO [address] [place] [address] [email or web address] Historical LMR Provider 02/23/17 05/17/21 Christian Nguyen MD [email or web address] Historical LMR Provider 02/23/17 05/17/21 Sydney Zimmerman MD [address] [place] [address] Historical LMR Provider 02/23/17 Shane Linda DO [address] [place] [address] Orthopedics & Sports Medicine, [place] [address] [email or web address] Historical LMR Provider 02/23/17 Eli Dobbins MD [address] [place] [address], 2nd [place] [address] [email or web address] Historical LMR Provider 02/23/17 America Stack MD [address] [place] [address] Historical LMR Provider 02/23/17 Low Mendoza MD [address] [facility], [facility] [address] [place] [address] [email or web address] Historical LMR Provider 02/23/17 05/17/21 Suni Guerrero MD [address] [place] [address] Historical LMR Provider 02/23/17 2 Elizabet Elias [address] [place] [address] [email or web address] Genetic Counselor Genetics 04/25/20 documented as of this encounter Additional Source Comments The information contained in this document represents components of the legal health record. It is not the complete legal health record.[facility]
--- OUTSIDE RECORDS SUMMARY | 2025-01-02 16:37 | XMS_ITS | Encounter Summary ---
Author Organization [facility] Address [address] [place] [address] Phone Care Team Providers Care Certified Activities Director Name Role Phone Lisa Solomon Angie GANDHI Unavailable [phone] Christian Nguyen MD Unavailable [facility] [email or web address] Sydney Zimmerman MD Unavailable [phone] Shane Linda DO Unavailable [phone] Eli Dobbins MD Unavailable +[phone] America Stack MD Unavailable Low Mendoza MD Unavailable Suni Guerrero MD Unavailable + [phone] America Stack MD Primary Care Provider Elizabet Elias Unavailable [phone] Encounter Details Date Type Department Care Team (Late st Contact Info) Description 04/02/2020 Procedure Pass [facility], [address] [address] Social History Tobacco Use Types Packs/Day Years [...] AM EDT documented as of this encounter Last Filed Vital Signs Vital Sign Reading Time Taken Comments Blood Pressure - - Pulse - - Temperature - - Respiratory Rate - - Oxygen Saturation - - Inhaled Oxygen Concentration - - Weight 79.4 kg (175 lb) 04/03/2020 11:06 AM EST Height 170.2 cm (5' 7 ) 04/03/2020 11:06 AM EST Body Mass Index 27.41 04/03/2020 11:06 AM EST documented in this encounter Plan of Treatment Not on file documented as of this encounter Visit Diagnoses Not on filedocumented in this encounter Care Teams Certified Activities Director Relationship Specialty Start Date End Date America Stack MD [facility] [place] [address] PCP - General Internal Medicine 03/04/17 Lisa Solomon DO [address] [place] [address] [email or web address] Historical LMR Provider 02/23/17 05/17/21 Christian Nguyen MD [email or web address] Historical LMR Provider 02/23/17 05/17/21 Sydney Zimmerman MD [address] [place] [address] Historical LMR Provider 02/23/17 Shane Linad DO [address] [place] [address] Orthopedics & Sports Medicine, [place] [address] [email or web address] Historical LMR Provider 02/23/17 Eli Dobbins MD [address] [place] [address], [address] [place] [address] [email or web address] Historical LMR Provider 02/23/17 America Stack MD [address] [place] [address] [place] [address] Historical LMR Provider 02/23/17 Low Mendoza MD [address] [place] [address] [email or web address] Historical LMR Provider 02/23/17 05/17/21 Suni Guerrero MD [address] [place] [phone] Historical LMR Provider 02/23/17 2 Elizabet Elias [address] [place] [address] [email or web address] Genetic Counselor Genetics 04/25/20 documented as of this encounter Additional Source Comments The information contained in this document represents components of the legal health record. It is not the complete legal health record.[facility]
--- OUTSIDE RECORDS SUMMARY | 2025-01-02 16:37 | XMS_ITS | Encounter Summary ---
Author Organization [facility] Address [address] [place] [address] Phone Care Team Providers Care Football Pad Repairer Name Role Phone Lisa Solomon Angie GANDHI Unavailable [phone] Christian Nguyen MD Unavailable [email or web address] Sydney Zimmerman MD Unavailable [phone] Shane Linda DO Unavailable [phone] Eli Dobbins MD Unavailable [phone] America Stack MD Unavailable Low Mendoza MD Unavailable Suni Guerrero MD Unavailable + [phone] America Stack MD Primary Care Provider Elizabet Elias Unavailable [phone] Encounter Details Date Type Department Care Team (Late st Contact Info) Description 07/04/2020 Procedure Pass [facility], Ct Scan - [address] [address] Social History Tobacco Use Types Packs/Day Years [...] on filedocumented in this encounter Care Teams Football Pad Repairer Relationship Specialty Start Date End Date America Stack MD [address] [place] [address] PCP - General Internal Medicine 03/04/17 Lisa Solomon DO [address] [place] [address] [email or web address] Historical LMR Provider 02/23/17 05/17/21 Christian Nguyen MD [email or web address] Historical LMR Provider 02/23/17 05/17/21 Sydney Zimmerman MD [address] [place] [address] Historical LMR Provider 02/23/17 Shane Linda DO [address] [place] [address] Orthopedics & Sports Medicine, [place] [address] [email or web address] Historical LMR Provider 02/23/17 Eli Dobbins MD [address] [place] [address], 2nd [place] [address] [email or web address] Historical LMR Provider 02/23/17 America Stack MD [address] [place] [address] Historical LMR Provider 02/23/17 Low Mendoza MD [address] [facility], [facility] 202 [place] [address] [email or web address] Historical LMR Provider 02/23/17 05/17/21 Suni Guerrero MD [address] [place] [address] Historical LMR Provider 02/23/17 2 Elizabet Elias [address] [place] [address] [email or web address] Genetic Counselor Genetics 04/25/20 documented as of this encounter Additional Source Comments The information contained in this document represents components of the legal health record. It is not the complete legal health record.[facility]
--- OUTSIDE RECORDS SUMMARY | 2025-01-02 16:37 | XMS_ITS | Encounter Summary ---
Author Organization [facility] Address [address] [place] [address] Phone Care Team Providers Care Pretzel Twisting Machine Operator Name Role Phone Lisa Solomon Angie GANDHI Unavailable [phone] Christian Nguyen MD Unavailable [facility] [email or web address] [email or web address] Sydney Zimmerman MD Unavailable [phone] Shane Linda DO Unavailable [phone] Eli Dobbins MD Unavailable [phone] America Stack MD Unavailable Low Mendoza MD Unavailable Suni Guerrero MD Unavailable + [phone] America Stack MD Primary Care Provider Elizabet Elias Unavailable [phone] Encounter Details Date Type Department Care Team (Late st Contact Info) Description 03/19/2020 Ancillary Orders [facility],Outside Imaging [address] [place], [place] [phone] System, Provider Not In, PhD Partners [address] [address] Social History Tobacco Use Types Packs/Day Years [...] * US Abdomen Outside (No Interpretation) (03/08/2020 12:00 AM EDT) Narrative SYSTEMGENERATED, DOCUMENTATION - 03/19/2020 1:54 PM EST This study is for PACS storage only and not for interpretation. us Provider Not In System PhD IMG OUTSIDE IMAGING W /OUT INTERPRETATION Final Result documented in this encounter Visit Diagnoses Not on filedocumented in this encounter Care Teams Pretzel Twisting Machine Operator Relationship Specialty Start Date End Date America Stack MD [address] [place] [address] PCP - General Internal Medicine 03/04/17 Lisa Solomon DO [address] [place] [address] [email or web address] Historical LMR Provider 02/23/17 05/17/21 Christian Nguyen MD [email or web address] Historical LMR Provider 02/23/17 05/17/21 Sydney Zimmerman MD [address] [place] [address] Historical LMR Provider 02/23/17 Shane Linda DO [address] [place] [address] Orthopedics & Sports Medicine, [place] [address] [email or web address] Historical LMR Provider 02/23/17 Eli Dobbins MD [address] [place] [address] [email or web address] Historical LMR Provider 02/23/17 America Stack MD [address] [place] [address] [place] [address] Historical LMR Provider 02/23/17 Low Mendoza MD [address] [place] [address], [facility] [address] [place] [address] [email or web address] Historical LMR Provider 02/23/17 05/17/21 Suni Guerrero MD [address], [place] [address] Historical LMR Provider 02/23/17 2 Elizabet Elias [address] [place] [address] [email or web address] Genetic Counselor Genetics 04/25/20 documented as of this encounter Additional Source Comments The information contained in this document represents components of the legal health record. It is not the complete legal health record.[facility]
--- OUTSIDE RECORDS SUMMARY | 2025-01-02 16:37 | XMS_ITS | Encounter Summary ---
Author Organization [facility] Address [address] [place] [address] Phone Care Team Providers Care Municipal Services Manager Name Role Phone Lisa Solomon Angie GANDHI Unavailable [phone] Christian Nguyen MD Unavailable [facility] hospitalwejaciel [email or web address] Sydney Zimmerman MD Unavailable [phone] Shane Linda DO Unavailable [phone] Eli Dobbins MD Unavailable [phone] America Stack MD Unavailable Low Mendoza MD Unavailable Suni Geurrero MD Unavailable + [phone] America Stack MD Primary Care Provider Elizabet Elias Unavailable [phone] Encounter Details Date Type Department Care Team (Late st Contact Info) Description 04/12/2020 Procedure Pass [facility] [address] [place] [phone] Social History Tobacco Use Types Packs/Day Years [...] on filedocumented in this encounter Care Teams Municipal Services Manager Relationship Specialty Start Date End Date America Stack MD [address] [place] [address] PCP - General Internal Medicine 03/04/17 Lisa Solomon DO [address] [place] [address] [email or web address] Historical LMR Provider 02/23/17 05/17/21 Christian Nguyen MD [email or web address] Historical LMR Provider 02/23/17 05/17/21 Sydney Zimmerman MD [address] [place] [address] Historical LMR Provider 02/23/17 Shane Linda DO [address] [place] [address] Orthopedics & Sports Medicine, [place] [address] [email or web address] Historical LMR Provider 02/23/17 Eli Dobbins MD [address] [place] [address], [address] [place] [address] [email or web address] Historical LMR Provider 02/23/17 America Stack MD [address] [place] [address] Historical LMR Provider 02/23/17 Low Mendoza MD [address] [place] [address] 202 [place] [address] [email or web address] Historical LMR Provider 02/23/17 05/17/21 Suni Guerrero MD [address], [place] [address] Historical LMR Provider 02/23/17 2 Elizabet Elias [address] [place] [address] [email or web address] Genetic Counselor Genetics 04/25/20 documented as of this encounter Additional Source Comments The information contained in this document represents components of the legal health record. It is not the complete legal health record.[facility]
--- OUTSIDE RECORDS SUMMARY | 2025-01-02 16:37 | XMS_ITS | Encounter Summary ---
Author Organization [facility] Address [address] [place] [address] Phone Care Team Providers Care Director Retirement Name Role Phone Lisa Solomon Angie GANDHI Unavailable [phone] Christian Nguyen MD Unavailable [facility] [email or web address] [email or web address] Sydney Zimmerman MD Unavailable [phone] Shane Linda DO Unavailable [phone] Eli Dobbins MD Unavailable +[phone] America Stack MD Unavailable Low Mnedoza MD Unavailable Suni Guerrero MD Unavailable + [phone] America Stack MD Primary Care Provider Elizabet Elias Unavailable [phone] Encounter Details Date Type Department Care Team (Late st Contact Info) Description 03/19/2020 Ancillary Orders [facility],Outside Imaging [address] [place], [place] [id number] System, Provider Not In, PhD Partners [address] [address] Social History Tobacco Use Types Packs/Day Years [...] as of this encounter Results * CT Abdomen/Pelvis Outside (No Interpretation) (02/28/2020 12:05 AM EDT) Narrative SYSTEMGENERATED, DOCUMENTATION - 03/19/2020 1:57 PM EST This study is for PACS storage only and not for interpretation. us Provider Not In System PhD IMG OUTSIDE IMAGING W /OUT INTERPRETATION Final Result documented in this encounter Visit Diagnoses Not on filedocumented in this encounter Care Teams Director Retirement Relationship Specialty Start Date End Date America Stack MD [facility] [place] [address] PCP - General Internal Medicine 03/04/17 Lisa Solomon DO [address] [place] [address] [email or web address] Historical LMR Provider 02/23/17 05/17/21 Christian Nguyen MD [email or web address] Historical LMR Provider 02/23/17 05/17/21 Sydney Zimmerman MD [address] [place] [address] Historical LMR Provider 02/23/17 Shane Linda DO [address] [place] [address] Orthopedics & Sports Medicine, [place] [address] [email or web address] Historical LMR Provider 02/23/17 Eli Dobbins MD [address] [place] [address] [place] [address] [email or web address] Historical LMR Provider 02/23/17 America Stack MD [address] [place] [address] [place] [address] Historical LMR Provider 02/23/17 Low Mendoza MD [address] [place] [address] [email or web address] Historical LMR Provider 02/23/17 05/17/21 Suni Guerrero MD [address] [address] Historical LMR Provider 02/23/17 2 Elizabet Elias [address] [place] [address] [email or web address] .[email or web address] Genetic Counselor Genetics 04/25/20 documented as of this encounter Additional Source Comments The information contained in this document represents components of the legal health record. It is not the complete legal health record.[facility]
== END 2025-01-02 16:55 | disposition home or self-care (01) ==
PROVIDERS: PCP Internal Medicine; Visit Provider Physician Assistant
DX: R05.2 Subacute cough (principal)

== ENCOUNTER → 2025-01-02 15:48 | Outpatient (BNVA) | payer MEDICARE, MEDICAID, SELFPAY | PROVIDERS: PCP Internal Medicine; Visit Provider Physician Assistant | DX: R05.2 Subacute cough (principal) | CPT/HCPCS: 99212 ==